=== PATIENT | male | born 1940 | race American Indian/Alaskan Native ===

== ENCOUNTER 2017-04-30 00:28 | Inpatient (IN) | payer MEDICARE ==
[2017-04-30] MEDS ORDERED: VANCOMYCIN VIAL IV ONE (00:55)
[2017-04-30] MEDS ORDERED: ZOFRAN IV ONE (01:04)
[2017-04-30] MEDS ORDERED: NACL 0.9% 1000 ML 1,000 ML ONE ×3 (01:10→02:13)
[2017-04-30 01:50] LABS: Basophils % (Auto) 0.1 % (0.0-1.8); Hematocrit 39.5 % (35.5-45.6); Hemoglobin 12.6 gm/dl (11.8-15.2); Lymphocytes # (Auto) 2.7 K/mm3 (1.2-5.4); Lymphocytes % (Auto) 46.1 % (13.4-35.0); Mean Corpuscular HGB Conc 32 % (32-34); Mean Corpuscular Hemoglobin 30 pg (28-32); Mean Corpuscular Volume 95 fl (84-94); Monocytes # (Auto) 0.7 K/mm3 (0.0-0.8); Monocytes % (Auto) 11.4 % (0.0-7.3); Platelet Count 161 K/mm3 (140-440); Red Blood Count 4.14 M/mm3 (3.65-5.03); Red Cell Distribution Width 16.6 % (13.2-15.2)
[2017-04-30] MEDS ORDERED: TYLENOL PR ONE ×2 (01:57)
[2017-04-30] MEDS ORDERED: VANCOMYCIN/NS 1 GM/250 ML 1 GM/250 ML BAG IV ONE (02:00)
--- NOTE | 2017-04-30 02:02 | Emergency Department Report ---
<LOUIE ROWLEY - Last Filed: 04/30/17 05:08> ED Fever HPI - General Chief Complaint: Fever Stated Complaint: POSS SEPTIC Time Seen by Provider: 04/30/17 00:55 ED Review of Systems ROS: Stated complaint: POSS SEPTIC Other details as noted in HPI ED Past Medical Hx - Medications Home Medications: Home Medications Medication Instructions Recorded Confirmed Last Taken Type Albuterol Sulfate [Ventolin HFA] 2 puff IH Q4H PRN 02/25/15 08/09/15 08/08/15 History Aspirin [Aspirin TAB] 325 mg PO QDAY 02/25/15 08/06/15 08/02/15 History Famotidine [Pepcid] 20 mg PO BID 02/25/15 08/09/15 08/08/15 History Furosemide [Lasix TAB] 20 mg PO QDAY 02/25/15 08/09/15 08/08/15 History Gabapentin [Neurontin] 100 mg PO Q8HR 02/25/15 08/09/15 08/08/15 History Glimepiride [Amaryl] 1 mg PO QAM 02/25/15 08/09/15 08/08/15 History Metformin HCl [Fortamet ER] 1,000 mg PO BID 02/25/15 08/09/15 08/08/15 History Simvastatin [Zocor TAB] 40 mg PO QHS 02/25/15 08/09/15 08/08/15 History Oxybutynin Chloride [Ditropan Xl] 10 mg PO QDAY 08/06/15 08/09/15 08/08/15 History Phenazopyridine [Pyridium] 200 mg PO TID 08/06/15 08/09/15 08/08/15 History Sulfamethoxazole/Trimethoprim 1 each PO BID 08/06/15 08/09/15 08/08/15 History [Bactrim DS TAB] Tamsulosin [Flomax] 0.4 mg PO QDAY 08/06/15 08/09/15 08/08/15 History traMADol [Ultram] 50 mg PO Q8HR PRN 08/06/15 08/09/15 08/08/15 History ED Course Vital Signs 04/30/17 04/30/17 04/30/17 00:48 01:00 01:10 Temperature Pulse Rate 140 H 145 H 149 H Respiratory 35 H 26 H Rate Blood Pressure 89/68 O2 Sat by Pulse 90 Oximetry 04/30/17 04/30/17 04/30/17 01:13 01:16 01:22 Temperature 103.6 F H Pulse Rate 150 H 138 H Respiratory 28 H 22 28 H Rate Blood Pressure 89/47 80/57 O2 Sat by Pulse 77 L 99 97 Oximetry 04/30/17 04/30/17 04/30/17 01:30 02:48 03:24 Temperature Pulse Rate 144 H 129 H 135 H Respiratory 23 19 17 Rate Blood Pressure 87/47 67/44 77/52 O2 Sat by Pulse 95 99 Oximetry - Central Line Placement Left IJ Consent Obtained: emergent situation Time Out Performed: Yes Patient Placed on Monitor/Pulse Ox: Yes Prep: mask, gown, gloves Central Line Prep: Chlorhexidine scrub, sterile drapes applied Local Anesthesia Used: Lidocaine 1% Amount of Anesthesia Used (mls): 5 Ultrasound Used for Placement: Yes Central Line Lumen Inserted: triple Bloods Obtained for Lab: No Central Line Position: good blood return, all ports aspirated, flus, sutured in place with 2-0 Dressing Applied: Tegaderm Post Procedure X-Ray: tip of catheter in good p Patient Tolerated Procedure: well, no complications Complications: none ED Medical Decision Making - Lab Data Result diagrams: 04/30/17 01:16 04/30/17 01:16 Critical care attestation.: If time is entered above; I have spent that time in minutes in the direct care of this critically ill patient, excluding procedure time. ED Disposition Clinical Impression: Wide-complex tachycardia, NSTEMI (non-ST elevated myocardial infarction), Dehydration with hypernatremia, Hypernatremia, Hyperglycemia Sepsis Qualifiers: Sepsis type: sepsis due to unspecified organism Qualified Code(s): A41.9 - Sepsis, unspecified organism CHF (congestive heart failure) Qualifiers: Congestive heart failure type: unspecified congestive heart failure type Congestive heart failure chronicity: acute Qualified Code(s): I50.9 - Heart failure, unspecified Fever Qualifiers: Fever type: unspecified Qualified Code(s): R50.9 - Fever, unspecified Disposition: -09 OP ADMIT IP TO THIS HOSP Condition: Stable Referrals: PRIMARY CARE,MD [Referring] - 3-5 Days <JORJE ONOFRE - Last Filed: 04/30/17 08:40> ED Fever HPI - General Source: EMS, RN notes reviewed (FROM [facility]), [facility] - History of Present Illness Timing/Duration: this evening Fever Severity/Quality: greater than 102 F Fever Therapy [employer]ICER: none Associated Symptoms: shortness of breath, weakness ED Review of Systems Comment: Unobtainable due to pts medical conditions Constitutional: denies: fever Neurological: weakness, other (unresponsiveness per penitentiary) Hematological/Lymphatic: easy bleeding ED Past Medical Hx - Past Medical History Previous Medical History?: Yes Hx Hypertension: Yes Hx CVA: Yes Hx Heart Attack/AMI: No Hx Diabetes: Yes Hx GERD: Yes Hx Renal Disease: (neurogenic bladder) Hx Sickle Cell Disease: No Hx Arthritis: Yes Hx Seizures: Yes (x 1, not on meds) Hx Asthma: No Hx HIV: No Additional medical history: a. fib,aspiration pneumonia,renal insufficiency,uti, metabolic acidosis,depression,anorexia - Surgical History Past Surgical History?: No Hx Internal Defibrillator: No (a. fib) Additional Surgical History: soha - Social History Smoking Status: Never Smoker Substance Use Type: None ED Physical Exam - General Limitations: Language Barrier (aphasic), Altered Mental Status, Physical Limitation General appearance: lethargic, in distress, other (APPEARS ,BARELY MOVING,) - Head Head exam: Present: atraumatic, normocephalic - Eye Eye exam: Present: EOMI - ENT ENT exam: Present: mucous membranes dry, other (dry cracked lips) - Neck Neck exam: Present: full ROM - Respiratory Respiratory exam: Present: respiratory distress, rales ( bilateral) - Cardiovascular Cardiovascular Exam: Present: tachycardia, irregular rhythm - GI/Abdominal GI/Abdominal exam: Present: soft, other (thin) - Rectal Rectal exam: Present: normal inspection - exam: Present: normal inspection External exam: Present: normal external exam - Extremities Exam Extremities exam: Present: normal inspection, full ROM - Back Exam Back exam: Present: normal inspection, full ROM ED Course - Reevaluation(s) Reevaluation #1: 04/30/17 08:34 CARDIEZEM DRIP AND DOING WELL. HIS HEAR RATE HAD NORMALIZED BUT HE IS STILL GETTING HYPOTENSIVE AT TIMES. THE HOSPITALIST WILL BE PAGED FOR MANAGEMENT OF HIS HYPOTENSION ED Medical Decision Making - Lab Data Result diagrams: 04/30/17 01:16 04/30/17 01:16 - EKG Data -: EKG Interpreted by Me EKG shows normal: sinus rhythm, axis Rate: tachycardia (WIDE COMPLEX TACHYCARDIA) - Radiology Data Radiology results: report reviewed (CXR;MINIMUM CHRONIC PULMONARY VACSULAR CONGESTION) Critical Care Time: Yes Critical care time in (mins) excluding proc time.: 120 Critical care attestation.: If time is entered above; I have spent that time in minutes in the direct care of this critically ill patient, excluding procedure time. [place] Critical Care Time: 120 MIN ED Disposition Is pt being admited?: Yes Does the pt Need Aspirin: No Time of Disposition: 07:00 (DR PARSONS PAGEAlexi AND CASE REVIEWED AND SHE WILL ADMIT THE PT TO THE HOSPITAL)
[2017-04-30 02:07] LABS: Partial Thromboplastin Time 27.8 Sec. (24.2-36.6)
[2017-04-30] MEDS ORDERED: CARDIZEM ONE (02:10)
[2017-04-30 02:11] LABS: Albumin 3.6 g/dL (3.9-5); Calcium 8.6 mg/dL (8.4-10.2)
[2017-04-30 02:12] LABS: Creatine Kinase MB 1.6 ng/mL (0.0-4.0)
[2017-04-30] MEDS ORDERED: NACL 0.9% 1000 ML 1,000 ML IV ONE ×2 (02:18→03:25)
[2017-04-30] MEDS ORDERED: NACL 0.9% IV ONE (02:18)
[2017-04-30 02:40] LABS: Chol/HDL Ratio 4.57 %
[2017-04-30] MEDS ORDERED: CARDIZEM/D5W 100MG/100ML 100 MG/100 ML BAG IV SCH (03:00)
--- NOTE | 2017-04-30 03:07 | XRay Report ---
FINAL REPORT EXAM: XR CHEST 1V AP HISTORY: Shortness of breath. TECHNIQUE: A single frontal portable radiograph of the chest was obtained. Comparison is made with prior exam 02/28/2015. FINDINGS: The cardiac silhouette and mediastinum are within normal limits. There is minimal central pulmonary vascular congestion, stable in appearance. There is no focal infiltrate or effusion. There is no pneumothorax. There are mild spondylotic changes seen in the spine. Mild degenerative changes are also seen at both glenohumeral joints. IMPRESSION: Minimal chronic pulmonary vascular congestion, stable in appearance. No focal infiltrate or effusion.
[2017-04-30] MEDS ORDERED: ZOSYN/NS 4.5GM/100ML 4.5 GM/100 ML VIAL IV SCH ×2 (04:00→06:00)
[2017-04-30] MEDS: VITAMIN B-1 200 MG in NACL 0.9% 50 ML IV SCH ×2 (04:20→19:02)
[2017-04-30] MEDS: ASCORBIC ACID 1,500 MG in NACL 0.9% 50 ML IV SCH ×4 (05:15→20:44)
[2017-04-30] MEDS: ZOSYN/NS 2.25 GM/50ML 2.25 GM/50 ML BAG IV SCH ×3 (05:35→21:36)
[2017-04-30] MEDS ORDERED: ASCORBIC ACID 1,500 MG in NACL 0.9% 50 ML IV SCH (06:00)
[2017-04-30] MEDS ORDERED: ZOFRAN IV PRN (06:08)
[2017-04-30] MEDS ORDERED: TYLENOL PO PRN (06:08)
--- NOTE | 2017-04-30 06:43 | History and Physical Report ---
History of Present Illness Date of examination: 04/30/17 Date of admission: 04/30/17 06:09 History of present illness: 77-year-old man with a history of diabetes, hyperlipidemia was [facility] for [facility] and fever. The patient is unable to give a history , is lethargic but arousable. Patient was started on IV antibiotics, Levophed drip and placed on BiPAP. Review of systems is unobtainable PAST MEDICAL HISTORY:diabetes, hyperlipidemia PAST SURGICAL HISTORY: Unknown FAMILY HISTORY: Unknown SOCIAL HISTORY: Unknown alcohol, tobacco, drugs, [facility] resident Medications and Allergies Allergies Allergy/AdvReac Type Severity Reaction Status Date / Time No Known Allergies Allergy Verified 04/30/17 01:13 Home Medications Medication Instructions Recorded Confirmed Last Taken Type Albuterol Sulfate [Ventolin HFA] 2 puff IH Q4H PRN 02/25/15 08/09/15 08/08/15 History Aspirin [Aspirin TAB] 325 mg PO QDAY 02/25/15 08/06/15 08/02/15 History Famotidine [Pepcid] 20 mg PO BID 02/25/15 08/09/15 08/08/15 History Furosemide [Lasix TAB] 20 mg PO QDAY 02/25/15 08/09/15 08/08/15 History Gabapentin [Neurontin] 100 mg PO Q8HR 02/25/15 08/09/15 08/08/15 History Glimepiride [Amaryl] 1 mg PO QAM 02/25/15 08/09/15 08/08/15 History Metformin HCl [Fortamet ER] 1,000 mg PO BID 02/25/15 08/09/15 08/08/15 History Simvastatin [Zocor TAB] 40 mg PO QHS 02/25/15 08/09/15 08/08/15 History Oxybutynin Chloride [Ditropan Xl] 10 mg PO QDAY 08/06/15 08/09/15 08/08/15 History Phenazopyridine [Pyridium] 200 mg PO TID 08/06/15 08/09/15 08/08/15 History Sulfamethoxazole/Trimethoprim 1 each PO BID 08/06/15 08/09/15 08/08/15 History [Bactrim DS TAB] Tamsulosin [Flomax] 0.4 mg PO QDAY 08/06/15 08/09/15 08/08/15 History traMADol [Ultram] 50 mg PO Q8HR PRN 08/06/15 08/09/15 08/08/15 History Active Meds: Active Medications Acetaminophen (Tylenol) 650 mg PO Q4H PRN PRN Reason: Pain MILD(1-3)/Fever >100.5/[place] Hydrocortisone Sodium Succinate (Solu-Cortef) 50 mg IV Q6H [facility] Thiamine HCl 200 mg/ Sodium (Chloride) 52 mls @ 100 mls/hr IV Q12H [facility] Last Admin: 04/30/17 04:20 Dose: 100 mls/hr Ascorbic Acid 1,500 mg/ Sodium (Chloride) 53 mls @ 50 mls/30 min IV Q6H [facility] Last Admin: 04/30/17 05:15 Dose: 50 mls/30 min Piperacillin Sod/Tazobactam Sod (Zosyn/Ns 2.25 Gm/50ml) 2.25 gm in 50 mls @ 100 mls/hr IV Q8H [facility] Last Admin: 04/30/17 05:35 Dose: 100 mls/hr Dextrose/Sodium Chloride (D5/0.45ns) 1,000 mls @ 125 mls/hr IV DIRECT [facility] Ondansetron HCl (Zofran) 4 mg IV Q8H PRN PRN Reason: N/V unrelieved by Gloria Vancomycin HCl (Vancomycin Pharmacy To Dose) 1 each IV PKCONSULT [facility] PRN Reason: Protocol Exam - Physical Exam Narrative exam: Gen. appearance: Patient lying in bed in no acute distress HEENT: Normocephalic/atraumatic, pupils equal round reactive to light, unable to do extra occular movement , no scleral icterus, no JVD or thyromegaly or nodule, neck is supple, mucous membrane dry, unable to examine oral cavity Heart: S1-S2, regular rate and rhythm Lungs: Decreased breath sounds bilateral breathing comfortable Abdomen: Positive bowel sounds, nontender, nondistended, no organomegaly Extremities: No edema, cyanosis, clubbing Neuro:: Lethargic but arousable Skin: No rash, nodules, warm dry - Constitutional Vitals: Temp Pulse Resp BP Pulse Ox 103.6 F H 95 H 14 92/48 94 04/30/17 01:13 04/30/17 05:45 01/01/18 05:45 04/30/17 05:45 04/30/17 05:45 Results - Labs CBC & Chem 7: 04/30/17 01:16 04/30/17 01:16 Labs: Abnormal lab results 04/30/17 04/30/17 04/30/17 Range/Units 01:16 01:16 01:16 MCV 95 H (84-94) fl RDW 16.6 H (13.2-15.2) % Lymph % (Auto) 46.1 H (13.4-35.0) % [place] % (Auto) 11.4 H (0.0-7.3) % D-Dimer 1356.09 H (0-234) ng/mlDDU POC ABG pH (7.35-7.45) Sodium 152 H (137-145) mmol/L Chloride 107.4 H (98-107) mmol/L BUN 98 H (9-20) mg/dL Creatinine 3.6 H (0.8-1.5) mg/dL Glucose 224 H (75-100) mg/dL Lactic Acid (0.7-2.0) mmol/L AST 55 H (5-40) units/L Total Creatine Kinase 759 H (55-170) units/L Troponin T 0.468 H* (0.00-0.029) ng/mL NT-Pro-B Natriuret Pep (0-900) pg/mL Albumin 3.6 L (3.9-5) g/dL Triglycerides 260 H (2-149) mg/dL LDL Cholesterol Direct 41 L (50-130) mg/dL HDL Cholesterol 26 L (40-59) mg/dL 04/30/17 04/30/17 04/30/17 Range/Units 01:16 01:16 01:16 MCV (84-94) fl RDW (13.2-15.2) % Lymph % (Auto) (13.4-35.0) % [place] % (Auto) (0.0-7.3) % D-Dimer (0-234) ng/mlDDU POC ABG pH (7.35-7.45) Sodium (137-145) mmol/L Chloride (98-107) mmol/L BUN (9-20) mg/dL Creatinine (0.8-1.5) mg/dL Glucose (75-100) mg/dL Lactic Acid 2.90 H* (0.7-2.0) mmol/L AST (5-40) units/L Total Creatine Kinase 784 H (55-170) units/L Troponin T (0.00-0.029) ng/mL NT-Pro-B Natriuret Pep 23142 H (0-900) pg/mL Albumin (3.9-5) g/dL Triglycerides (2-149) mg/dL LDL Cholesterol Direct (50-130) mg/dL HDL Cholesterol (40-59) mg/dL 04/30/17 Range/Units 03:27 MCV (84-94) fl RDW (13.2-15.2) % Lymph % (Auto) (13.4-35.0) % [place] % (Auto) (0.0-7.3) % D-Dimer (0-234) ng/mlDDU POC ABG pH 7.303 L (7.35-7.45) Sodium (137-145) mmol/L Chloride (98-107) mmol/L BUN (9-20) mg/dL Creatinine (0.8-1.5) mg/dL Glucose (75-100) mg/dL Lactic Acid (0.7-2.0) mmol/L AST (5-40) units/L Total Creatine Kinase (55-170) units/L Troponin T (0.00-0.029) ng/mL NT-Pro-B Natriuret Pep (0-900) pg/mL Albumin (3.9-5) g/dL Triglycerides (2-149) mg/dL LDL Cholesterol Direct (50-130) mg/dL HDL Cholesterol (40-59) mg/dL Assessment and Plan Assessment Acute respiratory failure Septic shock Acute renal failure Hypernatremia Abnormal d-dimer Abnormal cardiac enzymes Hyperlipidemia Plan Admit to medicine Start IV fluid, continue levophed drip, continue BiPAP, do ABG Monitor kidney function, check ultrasound of the kidneys, sodium levels Start IV Zosyn, vancomycin, consult critical care Check cardiac enzymes, echo, v/q DVT prophylaxis
[2017-04-30] MEDS ORDERED: D5/0.45NS 1,000 ML IV SCH (07:00)
[2017-04-30] MEDS ORDERED: VANCOMYCIN VIAL 500 MG in NACL 0.9% 100 ML IV SCH (07:00)
[2017-04-30] MEDS ORDERED: VANCOMYCIN PHARMACY TO DOSE IV SCH (07:00)
--- NOTE | 2017-04-30 08:33 | XRay Report ---
AP CHEST: HISTORY: Central line placement A left IJ venous catheter has been inserted since earlier today at 0104 hrs. The distal tip of the catheter overlies the mid SVC. No pneumothorax is visualized. Mild bibasilar atelectatic changes have developed. Heart and mediastinal structures are within normal limits. IMPRESSION: Central line placement as described. No pneumothorax identified.
[2017-04-30 10:07] LABS: Calcium 7.8 mg/dL (8.4-10.2)
[2017-04-30 10:59] LABS: Creatine Kinase MB 2.3 ng/mL (0.0-4.0)
[2017-04-30 12:37] LABS: Calcium 7.7 mg/dL (8.4-10.2)
[2017-04-30 12:55] LABS: Creatine Kinase MB 2.5 ng/mL (0.0-4.0)
[2017-04-30] MEDS: LOVENOX SUB-Q SCH (13:11)
[2017-04-30] MEDS ORDERED: ZOSYN/NS 2.25 GM/50ML 2.25 GM/50 ML BAG IV SCH (14:00)
--- NOTE | 2017-04-30 14:02 | Consultation ---
History of Present Illness Consult date: 04/30/17 Requesting physician: SHERIE PARSONS Reason for consult: other (Severe Sepsis; Acute Hypoxemic Resp Failure) History of present illness: PULMONARY/CCM CONSULT NOTE (Full dictation # [id number]) Please see dictated notes for full details Medications and Allergies Allergies Allergy/AdvReac Type Severity Reaction Status Date / Time No Known Allergies Allergy Verified 04/30/17 01:13 Home Medications Medication Instructions Recorded Confirmed Last Taken Type Albuterol Sulfate [Ventolin HFA] 2 puff IH Q4H PRN 02/25/15 08/09/15 08/08/15 History Aspirin [Aspirin TAB] 325 mg PO QDAY 02/25/15 08/06/15 08/02/15 History Famotidine [Pepcid] 20 mg PO BID 02/25/15 08/09/15 08/08/15 History Furosemide [Lasix TAB] 20 mg PO QDAY 02/25/15 08/09/15 08/08/15 History Gabapentin [Neurontin] 100 mg PO Q8HR 02/25/15 08/09/15 08/08/15 History Glimepiride [Amaryl] 1 mg PO QAM 02/25/15 08/09/15 08/08/15 History Metformin HCl [Fortamet ER] 1,000 mg PO BID 02/25/15 08/09/15 08/08/15 History Simvastatin [Zocor TAB] 40 mg PO QHS 02/25/15 08/09/15 08/08/15 History Oxybutynin Chloride [Ditropan Xl] 10 mg PO QDAY 08/06/15 08/09/15 08/08/15 History Phenazopyridine [Pyridium] 200 mg PO TID 08/06/15 08/09/15 08/08/15 History Sulfamethoxazole/Trimethoprim 1 each PO BID 08/06/15 08/09/15 08/08/15 History [Bactrim DS TAB] Tamsulosin [Flomax] 0.4 mg PO QDAY 08/06/15 08/09/15 08/08/15 History traMADol [Ultram] 50 mg PO Q8HR PRN 08/06/15 08/09/15 08/08/15 History Active Meds: Active Medications Acetaminophen (Tylenol) 650 mg PO Q4H PRN PRN Reason: Pain MILD(1-3)/Fever >100.5/[place] Enoxaparin Sodium (Lovenox) 30 mg SUB-Q DAILY [facility] Hydrocortisone Sodium Succinate (Solu-Cortef) 50 mg IV Q6H [facility] Thiamine HCl 200 mg/ Sodium (Chloride) 52 mls @ 100 mls/hr IV Q12H [facility] Last Admin: 04/30/17 04:20 Dose: 100 mls/hr Ascorbic Acid 1,500 mg/ Sodium (Chloride) 53 mls @ 50 mls/30 min IV Q6H [facility] Last Admin: 04/30/17 10:22 Dose: 50 mls/30 min Piperacillin Sod/Tazobactam Sod (Zosyn/Ns 2.25 Gm/50ml) 2.25 gm in 50 mls @ 100 mls/hr IV Q8H [facility] Last Admin: 04/30/17 05:35 Dose: 100 mls/hr Dextrose/Sodium Chloride (D5/0.45ns) 1,000 mls @ 125 mls/hr IV [facility] Ondansetron HCl (Zofran) 4 mg IV Q8H PRN PRN Reason: N/V unrelieved by Gloria Vancomycin HCl (Vancomycin Pharmacy To Dose) 1 each IV PKCONSULT [facility] PRN Reason: Protocol Physical Examination Vital signs: Vital Signs Pulse Resp Pulse Ox 140 H 35 H 90 04/30/17 00:48 04/30/17 00:48 04/30/17 00:48 Results - Laboratory Findings CBC and BMP: 04/30/17 01:16 04/30/17 12:11 ABG POC ABG pH 7.283 (7.35-7.45) L 04/30/17 05:56 POC ABG pCO2 42.1 (35-45) 04/30/17 05:56 POC ABG pO2 68 (80-105) L 04/30/17 05:56 POC ABG HCO3 19.9 04/30/17 05:56 POC ABG Total CO2 21 04/30/17 05:56 POC ABG O2 Sat 91 04/30/17 05:56 PT/INR, D-dimer D-Dimer 1356.09 ng/mlDDU (0-234) H 04/30/17 01:16 Abnormal lab findings: Abnormal Labs 04/30/17 04/30/17 04/30/17 01:16 01:16 01:16 MCV 95 H RDW 16.6 H Lymph % (Auto) 46.1 H [place] % (Auto) 11.4 H D-Dimer 1356.09 H POC ABG pH POC ABG pO2 Sodium 152 H Chloride 107.4 H BUN 98 H Creatinine 3.6 H Glucose 224 H Lactic Acid Calcium AST 55 H Total Creatine Kinase 759 H Troponin T 0.468 H* NT-Pro-B Natriuret Pep Albumin 3.6 L Triglycerides 260 H LDL Cholesterol Direct 41 L HDL Cholesterol 26 L 04/30/17 04/30/17 04/30/17 01:16 01:16 01:16 MCV RDW Lymph % (Auto) [place] % (Auto) D-Dimer POC ABG pH POC ABG pO2 Sodium Chloride BUN Creatinine Glucose Lactic Acid 2.90 H* Calcium AST Total Creatine Kinase 784 H Troponin T NT-Pro-B Natriuret Pep 62501 H Albumin Triglycerides LDL Cholesterol Direct HDL Cholesterol 04/30/17 04/30/17 04/30/17 03:27 05:56 09:43 MCV RDW Lymph % (Auto) [place] % (Auto) D-Dimer POC ABG pH 7.303 L 7.283 L POC ABG pO2 68 L Sodium Chloride BUN Creatinine Glucose Lactic Acid Calcium AST Total Creatine Kinase 682 H Troponin T 0.331 H* D NT-Pro-B Natriuret Pep Albumin Triglycerides LDL Cholesterol Direct HDL Cholesterol 04/30/17 04/30/17 04/30/17 09:43 12:11 12:11 MCV RDW Lymph % (Auto) [place] % (Auto) D-Dimer POC ABG pH POC ABG pO2 Sodium 152 H 155 H Chloride 112.1 H 114.3 H BUN 100 H 101 H Creatinine 3.3 H 3.4 H Glucose 267 H 262 H Lactic Acid Calcium 7.8 L 7.7 L AST Total Creatine Kinase 693 H Troponin T 0.299 H* NT-Pro-B Natriuret Pep Albumin Triglycerides LDL Cholesterol Direct HDL Cholesterol
[2017-04-30] MEDS ORDERED: D50W (25GM) Syringe IV PRN (15:22)
--- NOTE | 2017-04-30 15:39 | Progress Note ---
Assessment and Plan Assessment and plan: 77-year-old man with a history of diabetes, hyperlipidemia was sent from the [place] [facility] for hypotension and fever. The patient is unable to give a history , is lethargic but arousable Acute respiratory failure with hypoxia continue BIPAP, pulmonary input appreciated Septic shock/Septic shock continue levophed, continue abx, obtain UA, UC Acute renal failure/ATN nephrology consult continue IVF, obtain UA, UC and renal US Hypernatremia -continue hypotonic fluid Abnormal d-dimer obtain dopplers, likely elevated due to septic shock Abnormal cardiac enzymes -demand ischaemia, due to Type 2 [place] The high probability of a clinically significant, sudden or life threatening deterioration of the [cv, pumonary, renal] system(s) required my full and direct attention, intervention and personal management. The aggregate critical care time was [44] minutes. This time is in addition to time spent performing reported procedures but includes the following: [] Data Review and interpretation [] Patient assessment and monitoring of vital signs [] Documentation [] Medication orders and management History Interval history: continues to be bipap dependent Hospitalist Physical - Constitutional Vitals: Temp Pulse Resp BP Pulse Ox 98.3 F 81 14 130/67 100 04/30/17 12:00 04/30/17 14:30 04/30/17 14:30 04/30/17 14:30 04/30/17 14:30 General appearance: Present: no acute distress - EENT Eyes: Present: PERRL ENT: hearing intact - Neck Neck: Present: supple - Respiratory Respiratory effort: labored Respiratory: bilateral: diminished - Cardiovascular Rhythm: regular Heart Sounds: Present: S1 & S2 - Extremities Extremities: no ischemia Peripheral Pulses: within normal limits - Abdominal General gastrointestinal: soft, non-tender - Integumentary Integumentary: Present: clear, warm - Psychiatric Psychiatric: appropriate mood/affect - Neurologic Neurologic: CNII-XII intact Results - Labs CBC & Chem 7: 04/30/17 01:16 04/30/17 12:11 Labs: Laboratory Last Values WBC 5.8 K/mm3 (4.5-11.0) 04/30/17 01:16 RBC 4.14 M/mm3 (3.65-5.03) 04/30/17 01:16 Hgb 12.6 gm/dl (11.8-15.2) 04/30/17 01:16 Hct 39.5 % (35.5-45.6) 04/30/17 01:16 MCV 95 fl (84-94) H 04/30/17 01:16 MCH 30 pg (28-32) 04/30/17 01:16 MCHC 32 % (32-34) 04/30/17 01:16 RDW 16.6 % (13.2-15.2) H 04/30/17 01:16 Plt Count 161 K/mm3 (140-440) 04/30/17 01:16 Lymph % (Auto) 46.1 % (13.4-35.0) H 04/30/17 01:16 [place] % (Auto) 11.4 % (0.0-7.3) H 04/30/17 01:16 Eos % (Auto) 0.0 % (0.0-4.3) 04/30/17 01:16 Baso % (Auto) 0.1 % (0.0-1.8) 04/30/17 01:16 Lymph # 2.7 K/mm3 (1.2-5.4) 04/30/17 01:16 [place] # 0.7 K/mm3 (0.0-0.8) 04/30/17 01:16 Eos # 0.0 K/mm3 (0.0-0.4) 04/30/17 01:16 Baso # 0.0 K/mm3 (0.0-0.1) 04/30/17 01:16 Seg Neutrophils % 42.4 % (40.0-70.0) 04/30/17 01:16 Seg Neutrophils # 2.5 K/mm3 (1.8-7.7) 04/30/17 01:16 APTT 27.8 Sec. (24.2-36.6) 04/30/17 01:16 D-Dimer 1356.09 ng/mlDDU (0-234) H 04/30/17 01:16 POC ABG pH 7.283 (7.35-7.45) L 04/30/17 05:56 POC ABG pCO2 42.1 (35-45) 04/30/17 05:56 POC ABG pO2 68 (80-105) L 04/30/17 05:56 POC ABG HCO3 19.9 04/30/17 05:56 POC ABG Total CO2 21 04/30/17 05:56 POC ABG O2 Sat 91 04/30/17 05:56 POC ABG Base Excess -7 04/30/17 05:56 FiO2 50 % 04/30/17 05:56 Sodium 155 mmol/L (137-145) H 04/30/17 12:11 Potassium 4.5 mmol/L (3.6-5.0) 04/30/17 12:11 Chloride 114.3 mmol/L (98-107) H 04/30/17 12:11 Carbon Dioxide 22 mmol/L (22-30) 04/30/17 12:11 Anion Gap 23 mmol/L 04/30/17 12:11 BUN 101 mg/dL (9-20) H 04/30/17 12:11 Creatinine 3.4 mg/dL (0.8-1.5) H 04/30/17 12:11 Estimated GFR 21 ml/min 04/30/17 12:11 BUN/Creatinine Ratio 30 % 04/30/17 12:11 Glucose 262 mg/dL (75-100) H 04/30/17 12:11 Lactic Acid 2.90 mmol/L (0.7-2.0) H* 04/30/17 01:16 Calcium 7.7 mg/dL (8.4-10.2) L 04/30/17 12:11 Total Bilirubin 0.30 mg/dL (0.1-1.2) 04/30/17 01:16 AST 55 units/L (5-40) H 04/30/17 01:16 ALT 28 units/L (7-56) 04/30/17 01:16 Alkaline Phosphatase 86 units/L (35-129) 04/30/17 01:16 Total Creatine Kinase 693 units/L (55-170) H 04/30/17 12:11 CK-MB (CK-2) 2.5 ng/mL (0.0-4.0) 04/30/17 12:11 CK-MB (CK-2) Rel Index 0.3 (0-4) 04/30/17 12:11 Troponin T 0.299 ng/mL (0.00-0.029) H* 04/30/17 12:11 NT-Pro-B Natriuret Pep 81181 pg/mL (0-900) H 04/30/17 01:16 Total Protein 7.5 g/dL (6.3-8.2) 04/30/17 01:16 Albumin 3.6 g/dL (3.9-5) L 04/30/17 01:16 Albumin/Globulin Ratio 0.9 % 04/30/17 01:16 Triglycerides 260 mg/dL (2-149) H 04/30/17 01:16 Cholesterol 119 mg/dL (50-199) 04/30/17 01:16 LDL Cholesterol Direct 41 mg/dL (50-130) L 04/30/17 01:16 HDL Cholesterol 26 mg/dL (40-59) L 04/30/17 01:16 Cholesterol/HDL Ratio 4.57 % 04/30/17 01:16 Blood Type O POSITIVE 04/30/17:18 Antibody Screen Negative 04/30/17:18
[2017-04-30] MEDS ORDERED: NACL 0.45% 1000 ML 1,000 ML IV SCH (16:00)
--- NOTE | 2017-04-30 16:32 | Consultation ---
History of Present Illness Consult date: 04/30/17 Consult reason: abnormal cardiac enzymes, atrial fibrillation, elevated troponin Medications and Allergies Allergies Allergy/AdvReac Type Severity Reaction Status Date / Time No Known Allergies Allergy Verified 04/30/17 01:13 Home Medications Medication Instructions Recorded Confirmed Last Taken Type Albuterol Sulfate [Ventolin HFA] 2 puff IH Q4H PRN 02/25/15 04/30/17 1 Day Ago History ~04/29/17 2 puffs Q4H prn Famotidine [Pepcid] 20 mg PO BID 02/25/15 04/30/17 1 Day Ago History ~04/29/17 Furosemide [Lasix TAB] 20 mg PO QDAY 02/25/15 04/30/17 1 Day Ago History ~04/29/17 Gabapentin [Neurontin] 100 mg PO Q8HR 02/25/15 04/30/17 1 Day Ago History ~04/29/17 Glimepiride [Amaryl] 1 mg PO QAM 02/25/15 04/30/17 1 Day Ago History ~04/29/17 1 mg Metformin HCl [Fortamet ER] 1,000 mg PO BID 02/25/15 04/30/17 1 Day Ago History ~04/29/17 1000 mg Simvastatin [Zocor TAB] 40 mg PO QHS 02/25/15 04/30/17 1 Day Ago History ~04/29/17 40 mg Oxybutynin Chloride [Ditropan Xl] 10 mg PO QDAY 08/06/15 04/30/17 1 Day Ago History ~04/29/17 10 mg Phenazopyridine [Pyridium] 200 mg PO TID 08/06/15 04/30/17 1 Day Ago History ~04/29/17 200 Sulfamethoxazole/Trimethoprim 1 each PO BID 08/06/15 04/30/17 1 Day Ago History [Bactrim DS TAB] ~04/29/17 Tamsulosin [Flomax] 0.4 mg PO QDAY 08/06/15 04/30/17 1 Day Ago History ~04/29/17 0.04 traMADol [Ultram] 50 mg PO Q8HR PRN 08/06/15 04/30/17 1 Day Ago History ~04/29/17 50mg Active Meds: Active Medications Acetaminophen (Tylenol) 650 mg PO Q4H PRN PRN Reason: Pain MILD(1-3)/Fever >100.5/IRWIN Albuterol/Ipratropium (Duoneb *Not For Prn Use*) 1 ampul IH Q6HRT [facility] Dextrose (D50w (25gm) Syringe) 50 ml IV PRN PRN PRN Reason: Hypoglycemia Enoxaparin Sodium (Lovenox) 30 mg SUB-Q DAILY [facility] Last Admin: 04/30/17 13:11 Dose: 30 mg Thiamine HCl 200 mg/ Sodium (Chloride) 52 mls @ 100 mls/hr IV Q12H [facility] Last Admin: 04/30/17 04:20 Dose: 100 mls/hr Ascorbic Acid 1,500 mg/ Sodium (Chloride) 53 mls @ 50 mls/30 min IV Q6H [facility] Last Admin: 04/30/17 15:45 Dose: 50 mls/30 min Piperacillin Sod/Tazobactam Sod (Zosyn/Ns 2.25 Gm/50ml) 2.25 gm in 50 mls @ 100 mls/hr IV Q8H [facility] Last Admin: 04/30/17 15:46 Dose: 100 mls/hr Sodium Chloride (Nacl 0.45% 1000 Ml) 1,000 mls @ 150 mls/hr IV DIRECT [facility] Insulin Aspart (Novolog) 0 units SUB-Q Q6HR [facility] PRN Reason: Protocol Methylprednisolone Sodium Succinate (Solu-Medrol) 125 mg IM Q6H [facility] Ondansetron HCl (Zofran) 4 mg IV Q8H PRN PRN Reason: N/V unrelieved by Reglan Pantoprazole Sodium (Protonix) 40 mg IV QDAY [facility] Tamsulosin HCl (Flomax) 0.4 mg PO QDAY [facility] Vancomycin HCl (Vancomycin Pharmacy To Dose) 1 each IV PKCONSULT [facility] PRN Reason: Protocol Physical Examination Vital Signs Pulse Resp Pulse Ox 140 H 35 H 90 04/30/17 00:48 04/30/17 00:48 04/30/17 00:48 Results 04/30/17 01:16 04/30/17 12:11 Cardiac Enzymes 04/30/17 04/30/17 04/30/17 Range/Units 01:16 01:16 01:16 WBC 5.8 (4.5-11.0) K/mm3 RBC 4.14 (3.65-5.03) M/mm3 Hgb 12.6 (11.8-15.2) gm/dl Hct 39.5 (35.5-45.6) % MCV 95 H (84-94) fl MCH 30 (28-32) pg MCHC 32 (32-34) % RDW 16.6 H (13.2-15.2) % Plt Count 161 (140-440) K/mm3 Lymph % (Auto) 46.1 H (13.4-35.0) % Mckean % (Auto) 11.4 H (0.0-7.3) % Eos % (Auto) 0.0 (0.0-4.3) % Baso % (Auto) 0.1 (0.0-1.8) % Lymph # 2.7 (1.2-5.4) K/mm3 Mckean # 0.7 (0.0-0.8) K/mm3 Eos # 0.0 (0.0-0.4) K/mm3 Baso # 0.0 (0.0-0.1) K/mm3 Seg Neutrophils % 42.4 (40.0-70.0) % Seg Neutrophils # 2.5 (1.8-7.7) K/mm3 APTT 27.8 (24.2-36.6) Sec. D-Dimer 1356.09 H (0-234) ng/mlDDU POC ABG pH (7.35-7.45) POC ABG pCO2 (35-45) POC ABG pO2 (80-105) POC ABG HCO3 POC ABG Total CO2 POC ABG O2 Sat POC ABG Base Excess FiO2 % Sodium 152 H (137-145) mmol/L Potassium 4.2 (3.6-5.0) mmol/L Chloride 107.4 H (98-107) mmol/L Carbon Dioxide 23 (22-30) mmol/L Anion Gap 26 mmol/L BUN 98 H (9-20) mg/dL Creatinine 3.6 H (0.8-1.5) mg/dL Estimated GFR 20 ml/min BUN/Creatinine Ratio 27 % Glucose 224 H (75-100) mg/dL Lactic Acid (0.7-2.0) mmol/L Calcium 8.6 (8.4-10.2) mg/dL Total Bilirubin 0.30 (0.1-1.2) mg/dL AST 55 H (5-40) units/L ALT 28 (7-56) units/L Alkaline Phosphatase 86 (35-129) units/L Total Creatine Kinase 759 H (55-170) units/L CK-MB (CK-2) (0.0-4.0) ng/mL CK-MB (CK-2) Rel Index (0-4) Troponin T 0.468 H* (0.00-0.029) ng/mL NT-Pro-B Natriuret Pep (0-900) pg/mL Total Protein 7.5 (6.3-8.2) g/dL Albumin 3.6 L (3.9-5) g/dL Albumin/Globulin Ratio 0.9 % Triglycerides 260 H (2-149) mg/dL Cholesterol 119 (50-199) mg/dL LDL Cholesterol Direct 41 L (50-130) mg/dL HDL Cholesterol 26 L (40-59) mg/dL Cholesterol/HDL Ratio 4.57 % 04/30/17 04/30/17 04/30/17 Range/Units 01:16 01:16 01:16 WBC (4.5-11.0) K/mm3 RBC (3.65-5.03) M/mm3 Hgb (11.8-15.2) gm/dl Hct (35.5-45.6) % MCV (84-94) fl MCH (28-32) pg MCHC (32-34) % RDW (13.2-15.2) % Plt Count (140-440) K/mm3 Lymph % (Auto) (13.4-35.0) % Mckean % (Auto) (0.0-7.3) % Eos % (Auto) (0.0-4.3) % Baso % (Auto) (0.0-1.8) % Lymph # (1.2-5.4) K/mm3 Mckean # (0.0-0.8) K/mm3 Eos # (0.0-0.4) K/mm3 Baso # (0.0-0.1) K/mm3 Seg Neutrophils % (40.0-70.0) % Seg Neutrophils # (1.8-7.7) K/mm3 APTT (24.2-36.6) Sec. D-Dimer (0-234) ng/mlDDU POC ABG pH (7.35-7.45) POC ABG pCO2 (35-45) POC ABG pO2 (80-105) POC ABG HCO3 POC ABG Total CO2 POC ABG O2 Sat POC ABG Base Excess FiO2 % Sodium (137-145) mmol/L Potassium (3.6-5.0) mmol/L Chloride (98-107) mmol/L Carbon Dioxide (22-30) mmol/L Anion Gap mmol/L BUN (9-20) mg/dL Creatinine (0.8-1.5) mg/dL Estimated GFR ml/min BUN/Creatinine Ratio % Glucose (75-100) mg/dL Lactic Acid 2.90 H* (0.7-2.0) mmol/L Calcium (8.4-10.2) mg/dL Total Bilirubin (0.1-1.2) mg/dL AST (5-40) units/L ALT (7-56) units/L Alkaline Phosphatase (35-129) units/L Total Creatine Kinase 784 H (55-170) units/L CK-MB (CK-2) 1.6 (0.0-4.0) ng/mL CK-MB (CK-2) Rel Index 0.2 (0-4) Troponin T (0.00-0.029) ng/mL NT-Pro-B Natriuret Pep 99889 H (0-900) pg/mL Total Protein (6.3-8.2) g/dL Albumin (3.9-5) g/dL Albumin/Globulin Ratio % Triglycerides (2-149) mg/dL Cholesterol (50-199) mg/dL LDL Cholesterol Direct (50-130) mg/dL HDL Cholesterol (40-59) mg/dL Cholesterol/HDL Ratio % 04/30/17 04/30/17 04/30/17 Range/Units 03:27 05:56 09:43 WBC (4.5-11.0) K/mm3 RBC (3.65-5.03) M/mm3 Hgb (11.8-15.2) gm/dl Hct (35.5-45.6) % MCV (84-94) fl MCH (28-32) pg MCHC (32-34) % RDW (13.2-15.2) % Plt Count (140-440) K/mm3 Lymph % (Auto) (13.4-35.0) % Mckean % (Auto) (0.0-7.3) % Eos % (Auto) (0.0-4.3) % Baso % (Auto) (0.0-1.8) % Lymph # (1.2-5.4) K/mm3 Mckean # (0.0-0.8) K/mm3 Eos # (0.0-0.4) K/mm3 Baso # (0.0-0.1) K/mm3 Seg Neutrophils % (40.0-70.0) % Seg Neutrophils # (1.8-7.7) K/mm3 APTT (24.2-36.6) Sec. D-Dimer (0-234) ng/mlDDU POC ABG pH 7.303 L 7.283 L (7.35-7.45) POC ABG pCO2 42.3 42.1 (35-45) POC ABG pO2 93 68 L (80-105) POC ABG HCO3 20.9 19.9 POC ABG Total CO2 22 21 POC ABG O2 Sat 96 91 POC ABG Base Excess -5 -7 FiO2 50 50 % Sodium (137-145) mmol/L Potassium (3.6-5.0) mmol/L Chloride (98-107) mmol/L Carbon Dioxide (22-30) mmol/L Anion Gap mmol/L BUN (9-20) mg/dL Creatinine (0.8-1.5) mg/dL Estimated GFR ml/min BUN/Creatinine Ratio % Glucose (75-100) mg/dL Lactic Acid (0.7-2.0) mmol/L Calcium (8.4-10.2) mg/dL Total Bilirubin (0.1-1.2) mg/dL AST (5-40) units/L ALT (7-56) units/L Alkaline Phosphatase (35-129) units/L Total Creatine Kinase 682 H (55-170) units/L CK-MB (CK-2) 2.3 (0.0-4.0) ng/mL CK-MB (CK-2) Rel Index 0.3 (0-4) Troponin T 0.331 H* D (0.00-0.029) ng/mL NT-Pro-B Natriuret Pep (0-900) pg/mL Total Protein (6.3-8.2) g/dL Albumin (3.9-5) g/dL Albumin/Globulin Ratio % Triglycerides (2-149) mg/dL Cholesterol (50-199) mg/dL LDL Cholesterol Direct (50-130) mg/dL HDL Cholesterol (40-59) mg/dL Cholesterol/HDL Ratio % 04/30/17 04/30/17 04/30/17 Range/Units 09:43 12:11 12:11 WBC (4.5-11.0) K/mm3 RBC (3.65-5.03) M/mm3 Hgb (11.8-15.2) gm/dl Hct (35.5-45.6) % MCV (84-94) fl MCH (28-32) pg MCHC (32-34) % RDW (13.2-15.2) % Plt Count (140-440) K/mm3 Lymph % (Auto) (13.4-35.0) % Mckean % (Auto) (0.0-7.3) % Eos % (Auto) (0.0-4.3) % Baso % (Auto) (0.0-1.8) % Lymph # (1.2-5.4) K/mm3 Mckean # (0.0-0.8) K/mm3 Eos # (0.0-0.4) K/mm3 Baso # (0.0-0.1) K/mm3 Seg Neutrophils % (40.0-70.0) % Seg Neutrophils # (1.8-7.7) K/mm3 APTT (24.2-36.6) Sec. D-Dimer (0-234) ng/mlDDU POC ABG pH (7.35-7.45) POC ABG pCO2 (35-45) POC ABG pO2 (80-105) POC ABG HCO3 POC ABG Total CO2 POC ABG O2 Sat POC ABG Base Excess FiO2 % Sodium 152 H 155 H (137-145) mmol/L Potassium 4.6 4.5 (3.6-5.0) mmol/L Chloride 112.1 H 114.3 H (98-107) mmol/L Carbon Dioxide 22 22 (22-30) mmol/L Anion Gap 23 23 mmol/L BUN 100 H 101 H (9-20) mg/dL Creatinine 3.3 H 3.4 H (0.8-1.5) mg/dL Estimated GFR 22 21 ml/min BUN/Creatinine Ratio 30 30 % Glucose 267 H 262 H (75-100) mg/dL Lactic Acid (0.7-2.0) mmol/L Calcium 7.8 L 7.7 L (8.4-10.2) mg/dL Total Bilirubin (0.1-1.2) mg/dL AST (5-40) units/L ALT (7-56) units/L Alkaline Phosphatase (35-129) units/L Total Creatine Kinase 693 H (55-170) units/L CK-MB (CK-2) 2.5 (0.0-4.0) ng/mL CK-MB (CK-2) Rel Index 0.3 (0-4) Troponin T 0.299 H* (0.00-0.029) ng/mL NT-Pro-B Natriuret Pep (0-900) pg/mL Total Protein (6.3-8.2) g/dL Albumin (3.9-5) g/dL Albumin/Globulin Ratio % Triglycerides (2-149) mg/dL Cholesterol (50-199) mg/dL LDL Cholesterol Direct (50-130) mg/dL HDL Cholesterol (40-59) mg/dL Cholesterol/HDL Ratio % Coagulation 04/30/17 Range/Units 01:16 APTT 27.8 (24.2-36.6) Sec. Lipids 04/30/17 Range/Units 01:16 Triglycerides 260 H (2-149) mg/dL Cholesterol 119 (50-199) mg/dL HDL Cholesterol 26 L (40-59) mg/dL Cholesterol/HDL Ratio 4.57 % CBC 04/30/17 Range/Units 01:16 WBC 5.8 (4.5-11.0) K/mm3 RBC 4.14 (3.65-5.03) M/mm3 Hgb 12.6 (11.8-15.2) gm/dl Hct 39.5 (35.5-45.6) % Plt Count 161 (140-440) K/mm3 Lymph # 2.7 (1.2-5.4) K/mm3 Mckean # 0.7 (0.0-0.8) K/mm3 Eos # 0.0 (0.0-0.4) K/mm3 Baso # 0.0 (0.0-0.1) K/mm3 Comprehensive Metabolic Panel 04/30/17 04/30/17 04/30/17 Range/Units 01:16 09:43 12:11 Sodium 152 H 152 H 155 H (137-145) mmol/L Potassium 4.2 4.6 4.5 (3.6-5.0) mmol/L Chloride 107.4 H 112.1 H 114.3 H (98-107) mmol/L Carbon Dioxide 23 22 22 (22-30) mmol/L BUN 98 H 100 H 101 H (9-20) mg/dL Creatinine 3.6 H 3.3 H 3.4 H (0.8-1.5) mg/dL Glucose 224 H 267 H 262 H (75-100) mg/dL Calcium 8.6 7.8 L 7.7 L (8.4-10.2) mg/dL AST 55 H (5-40) units/L ALT 28 (7-56) units/L Alkaline Phosphatase 86 (35-129) units/L Total Protein 7.5 (6.3-8.2) g/dL Albumin 3.6 L (3.9-5) g/dL Assessment and Plan Cardio consult dictated Rythm is SR now Abn enzymes probably seconadry to renal failure will obtain echo for further evaluation
--- NOTE | 2017-04-30 16:51 | Ultrasound Report ---
FINAL REPORT EXAM: US RENAL BILAT HISTORY: rf TECHNIQUE: Ultrasound kidneys PRIORS: None. FINDINGS: Right kidney is 13.4 x 5.8 x 5.2 centimeters. There are 3 small simple appearing cyst noted largest measuring 3.1 centimeters Left kidney is 12.1 x 6 x 3 x 5.4 centimeters There is a left renal cyst measuring 2.6 centimeters kidneys demonstrate mildly increased echogenicity bilaterally which may indicate under lying medical renal disease IMPRESSION: Bilateral renal cysts Mildly increased renal echogenicity likely reflecting underlying medical renal disease No evidence for obstructive uropathy
[2017-04-30] MEDS: PROTONIX IV SCH (17:40)
[2017-04-30] MEDS: NOVOLOG SUB-Q SCH (18:25)
[2017-04-30] MEDS: NACL 0.45% 1000 ML 1,000 ML IV SCH (19:04)
[2017-04-30 19:06] LABS: Bilirubin,Urine NEG (Negative); Blood,Urine NEG (Negative); Color,Urine Yellow (Yellow); Granular Casts,Urine 4 /LPF; Hyaline Casts,Urine 1 /LPF; Mucus,Urine FEW /HPF; Nitrite,Urine NEG (Negative)
[2017-04-30] MEDS: DUONEB *Not for PRN Use IH SCH ×2 (19:38→19:50)
[2017-04-30 21:14] LABS: Calcium 7.7 mg/dL (8.4-10.2)
[2017-05-01] MEDS: NOVOLOG SUB-Q SCH ×4 (00:25→19:29)
[2017-05-01] MEDS: NACL 0.45% 1000 ML 1,000 ML IV SCH ×3 (01:14→15:56)
[2017-05-01] MEDS: DUONEB *Not for PRN Use IH SCH ×4 (01:34→22:18)
[2017-05-01] MEDS: ASCORBIC ACID 1,500 MG in NACL 0.9% 50 ML IV SCH ×4 (02:28→20:56)
--- NOTE | 2017-05-01 03:02 | Consultation ---
PULMONARY CRITICAL CARE CONSULT NOTE CONSULTING PHYSICIAN: Dr. Yoder. REASON FOR CONSULTATION: Critical care acute hypoxemic respiratory failure on continuous BiPAP as well as sepsis. CHIEF COMPLAINT AND HISTORY OF PRESENT ILLNESS: The patient is a 77-year-old -[place] male with past medical history, who appears to have significant amongst other things for a diagnosis of diabetes, who was brought in from halfway secondary to hypotension and fever, unable to give much of a history at the time he presented. He was lethargic. He was started on IV antibiotics, required Levophed drip and required bilevel positive air pressure ventilation therapy for ventilatory support and oxygenation. We are asked to evaluate for ICU admission. When I stopped by to see him, he remained on continuous BiPAP, was a little bit more arousable at the time noted. He has had no one when asked about any pain. Since he has been in the Emergency Room, I do not have any history of vomiting or overt aspiration. The patient's tobacco use/abuse history is unknown except that he does not smoke at the halfway. Also, I should say he went into atrial fibrillation with a rapid ventricular response and had to be started at Cardizem drip, which was just about to be transitioned off at the time that I stopped by to see him. This really is as much of the history of presentation as I have. PAST MEDICAL HISTORY: Diabetes, hyperlipidemia, seems to have sequelae of a prior cerebrovascular accident. PAST SURGICAL HISTORY: Unknown. MEDICATIONS: He was on at the time I stopped by to see him were reviewed. Pertinent medications included the following: Lovenox 30 mg subcutaneous daily, Solu-Cortef 50 mg IV q. 6 hours, Zofran 4 mg IV q. 8 h. p.r.n. nausea and vomiting, Zosyn 2.25 grams IV q. 8 h. Thiamine he received a 200 mg IV, it is actually scheduled q. 12 hours and vancomycin he received 1 gram dose I believe. He was also on Cardizem drip at 5 mg per hour. ALLERGIES: No known drug allergies. DIET: Thin, bordering on cachectic looking gentleman, acute weight loss or gain history is unknown. FAMILY AND SOCIAL HISTORY: halfway resident. Alcohol, tobacco, or illicit drug use or abuse history is unknown. Family history; otherwise, unknown. REVIEW OF SYSTEMS: Unobtainable secondary to the patient's medical and mental condition since he has been here, though no gross hematochezia or melena, no gross hematuria, no hematochezia, no bloody tracheal secretions. No hematemesis, no hemoptysis, no witnessed seizures. Review of systems again is; otherwise, unobtainable. PHYSICAL EXAMINATION: VITAL SIGNS: At presentation in the Emergency Room revealed vital signs shows temperature of 103.6 degrees Fahrenheit with a pulse of 140, respiratory rate of 35, blood pressure 89/68 and proceeded deep into the MAPs of over 50s. GENERAL: He is an elderly looking -[place] male, looks his stated age, cachectic, normocephalic, atraumatic on the BiPAP, full face mask with moderately increased work of breathing. HEAD, EYES, EARS, NOSE AND THROAT: He is anicteric. No conjunctival erythema. No gross jugular venous distention. Grossly, no palpable lymph nodes in the supraclavicular or submandibular lymph node chains. No thyromegaly. He has a full face mask over his face, unable to evaluate his oropharynx well. He does appear dry. LUNGS: Auscultation of both lung schuster revealed bilateral rales, no wheezing. HEART: Heart sounds 1 and 2 are heard at the time of my evaluation. Irregular rate and rhythm. No rubs, no murmurs. ABDOMEN: Soft. Bowel sounds are positive, nontender. No palpable hepatosplenomegaly. EXTREMITIES: Without overt digital clubbing or cyanosis and no pedal edema. Dorsalis pedis pulses were palpable bilaterally. NEUROLOGIC: The pupils were equal, round, about 3 mm, reactive to light. Extraocular muscle movements could not be adequately assessed. NEUROLOGIC: He had spontaneous movements to all 4 extremities. The power was reduced in the left upper extremity in particular to the power of about 2-3/5. Otherwise, 4-5/5 in the lower extremities and he had some contractures developed into the left upper extremity. SKIN: Poor turgor without overt tenting, no rash, no cellulitis as far as I can see. LABORATORY DATA: From my review are as follows: White cell count 5800, hemoglobin 12.6, hematocrit 39.5 and a platelet count of 161. D-dimer was elevated at 1356. Arterial blood gas at presentation showed a pH of 7.30, pCO2 of 42, pO2 of 93,000 on 50% FiO2. Today 7.28 on the pH with a pCO2 of 42, base excess is -7, this is also on 50% FiO2. Serum sodium at admission was 152, potassium 4.2, chloride 107, bicarbonate 23, BUN 98, creatinine 3.6 and glucose of 224. Lactic acid level was 2.9. Troponin of 0.468. CPK was up at 784. BNP was elevated. LDL cholesterol was 41. Blood cultures, no growth to date. Influenza A and B rapid screen negative. Radiographic studies have been reviewed. I have also reviewed the radiologist's interpretation. I have an x-ray from 2015 to compare it with and really no significant changes. I will say there is a suggestion of bibasilar infiltrates plus likely plate-like atelectasis. The film is rotated to the left. There is a left IJ central line with the tip in the distal SVC, some hilar enlargement with granulomata in particular on the right. Cardiovascular silhouette appears within normal limits, borderline enlarged. No overt interstitial edema, more likely element of hypoventilation. No gross pneumothorax, no gross bony fractures. ASSESSMENT AND PLAN: 1. Acute hypoxemic respiratory failure on continuous BiPAP. 2. Severe sepsis. 3. Acute kidney injury, possibly over chronic. 4. Hypernatremia. 5. Elevated D-dimer. 6. Elevated cardiac enzymes. 7. History of hyperlipidemia. 8. Possible history of cerebrovascular accident. 9. Adult failure to thrive. PLAN: Continue noninvasive pressure ventilation support around the clock. I will get a stat arterial blood gas and if the pH is significantly improved, I will go ahead and plan to use it only scheduled at bedtime with p.r.n. daytime use. Aspiration precautions will be maintained. He will be started on bronchodilators. I think he will benefit from a venous thromboembolic disorder workup just mostly in light of his sedentary status and elevated D-dimer without any overt source of infection. Bilateral lower extremity Dopplers will be ordered. Oxygen will be weaned to keep sats greater than or equal to about 92-94%. Cardizem drip will be stopped. The EKG suggests relatively wider complex tachycardia what certainly does not look like V-tach to me; right now, this rate is less than 100 at this point and most of that has resolved. There may have been an element of intravascular volume depletion also at play, which I do think is pretty significant. We will continue gentle volume hydration. I will go use an isotonic solution. We will go ahead with half NS as his blood sugars appeared to be elevated and I will run half NS at about 75-100 mL per hour following him clinically. Cardiology evaluation will be at the behest of the attending physician. He certainly will benefit from Nephrology evaluation. Electrolytes will be corrected as necessary. If he is going to remain on the noninvasive pressure ventilation therapy around the clock, attempts will be made to put in a Dobhoff feeding tube, so we can hydrate him, also that way give him some free water. He will be left on GI prophylaxis, which is appropriate. He will be started on DVT prophylaxis. We will continue empiric systemic anti-infective therapy. I will go ahead and get a repeat lactic acid level as well as CRP level and trend as necessary during this admission. Anti-infectives will ultimately be deescalated based on results of clinical and microbiologic data. No acute indication for neuro imaging at this point. Flu and pneumonia vaccination will be per protocol. Thank you very much for the consult, Dr. Yoder. We will follow along. We will make further recommendations as the picture progresses/becomes clearer. He is critically ill on life-sustaining interventions including mechanical continuous noninvasive ventilation as well as vasopressor therapy, at risk for further deterioration including . I should mention the vasopressors will be weaned to keep mean arterial pressures greater than or equal to about 65 mmHg. At this time, we spent about 35-40 minutes of critical care time without overlap. I should mention as soon as we are able to, central venous pressures will be measured and trended and will be used to help guide volume resuscitation. JOB# [id number] KARTHIKEYAN/EUGENIE
--- NOTE | 2017-05-01 03:05 | XRay Report ---
FINAL REPORT PROCEDURE: XR CHEST 1V AP TECHNIQUE: Chest radiograph anteroposterior view. CPT 87338 HISTORY: pneumonia COMPARISON: 04/30/2017 FINDINGS: Heart: Normal. Mediastinum/Vessels: Normal. Lungs/Pleural space: There are infiltrates at the lung bases. There are no effusions or pneumothoraces.. Bony thorax: No acute osseous abnormality. Life support devices: There is a right-sided central venous catheter. The tip is in the superior vena cava.. IMPRESSION: Heart size is normal. There are bilateral lower lobe infiltrates..
--- NOTE | 2017-05-01 03:37 | Consultation ---
CARDIOLOGY EVALUATION HISTORY OF PRESENT ILLNESS: The patient is a 77-year-old gentleman. He was transferred from the intermediate because of hypotension and fever. The patient is somewhat difficult to obtain any history from, somewhat lethargic, but claims that he does not have any chest pain or difficulty in breathing at this time. Initially, he required to be on Levophed drip and BiPAP. He was noted to have atrial fibrillation with rapid ventricular response, for which he was treated with intravenous Cardizem drip. The patient has history of hypertension, diabetes and hyperlipidemia. The patient is known to have had a cerebrovascular accident. PHYSICAL EXAMINATION: GENERAL: Adult gentleman, well built, well nourished, appears to be confused, but in no acute distress at this time. HEENT: The patient appears to have left facial palsy. NECK: Supple. No thyromegaly. Both carotids are palpable and equal. Neck veins are flat. CHEST: Symmetrical. LUNGS: Essentially clear. HEART: S1 and S2 are heard well. No S3. ABDOMEN: Soft, nontender. EXTREMITIES: No significant calf tenderness. CENTRAL NERVOUS SYSTEM: Left hemiplegia. Initial EKG showed atrial fibrillation with rapid ventricular response with a wide QRS tachycardia. At present, he is in sinus rhythm with an intraventricular conduction delay with PACs. LABORATORY DATA: WBC 5.8, hemoglobin 12.6, hematocrit 39.5. Blood gases initially showed severe metabolic acidosis with pH of 7.303, repeat 7.283. Sodium 155, potassium 4.5, BUN 101, creatinine 3.4, blood sugar 262. Lactic acid 2.9. Troponin 0.46, 0.331 and 0.299. BNP 35,000. Total cholesterol 119, LDL 41, HDL 26. IMPRESSION: 1. Atrial fibrillation with rapid ventricular response, treated with Cardizem, now in sinus rhythm. 2. Septicemia, on antibiotics. 3. Hypertension. 4. Hyperlipidemia. 5. Status post cerebrovascular accident. The patient has been in intermediate. The patient is seen for cardiac evaluation. At present, the rhythm is satisfactory. We will obtain an echocardiogram and monitor the patient along with you. Thank you for allowing me to participate in the care of this gentleman. JOB# [id number] KB/[id number]
[2017-05-01] MEDS: VITAMIN B-1 200 MG in NACL 0.9% 50 ML IV SCH ×2 (03:53→15:55)
[2017-05-01] MEDS: ZOSYN/NS 2.25 GM/50ML 2.25 GM/50 ML BAG IV SCH ×3 (04:33→21:31)
[2017-05-01 05:19] LABS: Hematocrit 33.9 % (35.5-45.6); Hemoglobin 10.8 gm/dl (11.8-15.2); Mean Corpuscular HGB Conc 32 % (32-34); Mean Corpuscular Hemoglobin 30 pg (28-32); Mean Corpuscular Volume 95 fl (84-94); Red Blood Count 3.55 M/mm3 (3.65-5.03)
[2017-05-01 05:29] LABS: Calcium 7.8 mg/dL (8.4-10.2)
[2017-05-01] MEDS ORDERED: CARDIZEM IV SCH (06:00)
[2017-05-01] MEDS ORDERED: NACL 0.9% IV SCH (06:00)
[2017-05-01 06:44] LABS: Anisocytosis 1+; Band Neutrophils # (Manual) 2.8 K/mm3; Basophils % (Manual) 0 % (0.0-1.8); Eosinophils % (Manual) 0 % (0.0-4.3); Total Cells Counted 100
[2017-05-01 06:45] LABS: Ovalocytes 1+; Platelet Estimate Consistent w Auto
[2017-05-01 06:46] LABS: Platelet Count 130 K/mm3 (140-440)
[2017-05-01] MEDS ORDERED: LOPRESSOR IV PRN (09:18)
--- NOTE | 2017-05-01 09:35 | Consultation ---
History of Present Illness - Reason for Consult Consult date: 05/01/17 SEPTIC SHOCK Requesting physician: KAYDEN GAYLE - History of Present Illness 77 years old with history of diabetes, chronic SP cath and hyperlipidemia, admitted on 04/30/17 from the retirement due to hypotension and fever. The patient is unable to give a history. He had a previous pneumonia requiring admission in 2016. In the emergency room, initial temperature was 103.6, heart rate 140, respirations 35, O2 sat 90, blood pressure 89/68. Patient was placed on pressors. Initial white count 5.8. Hemoglobin 12.6. Platelets 161. Creatinine 3.6. Lactic acid 2.9. Urinalysis showed large leukocyte esterase and 40 white blood cells. Chest x-ray initially showed pulmonary congestion however repeat chest x-ray showed bilateral infiltrates. Patient old suprapubic catheter was exchanged in the emergency room. Microbiology: Blood cultures: 04/30 ngtd Urine cultures: not sent Current Antimicrobials: Zosyn 04/30 Vancomycin 04/30 Previous Antimicrobials: Past History Past Medical History: diabetes, hyperlipidemia Past Surgical History: Other (suprapubic cath) Family history: no significant family history Medications and Allergies Allergies Allergy/AdvReac Type Severity Reaction Status Date / Time No Known Allergies Allergy Verified 04/30/17 01:13 Home Medications Medication Instructions Recorded Confirmed Last Taken Type Albuterol Sulfate [Ventolin HFA] 2 puff IH Q4H PRN 02/25/15 04/30/17 1 Day Ago History ~04/29/17 2 puffs Q4H prn Famotidine [Pepcid] 20 mg PO BID 02/25/15 04/30/17 1 Day Ago History ~04/29/17 Furosemide [Lasix TAB] 20 mg PO QDAY 02/25/15 04/30/17 1 Day Ago History ~04/29/17 Gabapentin [Neurontin] 100 mg PO Q8HR 02/25/15 04/30/17 1 Day Ago History ~04/29/17 Glimepiride [Amaryl] 1 mg PO QAM 02/25/15 04/30/17 1 Day Ago History ~04/29/17 1 mg Metformin HCl [Fortamet ER] 1,000 mg PO BID 02/25/15 04/30/17 1 Day Ago History ~04/29/17 1000 mg Simvastatin [Zocor TAB] 40 mg PO QHS 02/25/15 04/30/17 1 Day Ago History ~04/29/17 40 mg Oxybutynin Chloride [Ditropan Xl] 10 mg PO QDAY 08/06/15 04/30/17 1 Day Ago History ~04/29/17 10 mg Phenazopyridine [Pyridium] 200 mg PO TID 08/06/15 04/30/17 1 Day Ago History ~04/29/17 200 Sulfamethoxazole/Trimethoprim 1 each PO BID 08/06/15 04/30/17 1 Day Ago History [Bactrim DS TAB] ~04/29/17 Tamsulosin [Flomax] 0.4 mg PO QDAY 08/06/15 04/30/17 1 Day Ago History ~04/29/17 0.04 traMADol [Ultram] 50 mg PO Q8HR PRN 08/06/15 04/30/17 1 Day Ago History ~04/29/17 50mg Active Meds: Active Medications Acetaminophen (Tylenol) 650 mg PO Q4H PRN PRN Reason: Pain MILD(1-3)/Fever >100.5/IRWIN Albuterol/Ipratropium (Duoneb *Not For Prn Use*) 1 ampul IH Q6HRT [facility] Last Admin: 05/01/17 08:14 Dose: 1 ampul Dextrose (D50w (25gm) Syringe) 50 ml IV PRN PRN PRN Reason: Hypoglycemia Enoxaparin Sodium (Lovenox) 30 mg SUB-Q DAILY [facility] Last Admin: 04/30/17 13:11 Dose: 30 mg Thiamine HCl 200 mg/ Sodium (Chloride) 52 mls @ 100 mls/hr IV Q12H [facility] Last Admin: 05/01/17 03:53 Dose: 100 mls/hr Ascorbic Acid 1,500 mg/ Sodium (Chloride) 53 mls @ 50 mls/30 min IV Q6H [facility] Last Admin: 05/01/17 09:15 Dose: Not Given Piperacillin Sod/Tazobactam Sod (Zosyn/Ns 2.25 Gm/50ml) 2.25 gm in 50 mls @ 100 mls/hr IV Q8H [facility] Last Admin: 05/01/17 04:33 Dose: 100 mls/hr Sodium Chloride (Nacl 0.45% 1000 Ml) 1,000 mls @ 150 mls/hr IV DIRECT CORI Last Admin: 05/01/17 08:44 Dose: 150 mls/hr Diltiazem HCl 100 mg/ Sodium (Chloride) 100 mls @ 2.5 mls/hr IV TITR CORI; 2.5 MG/HR PRN Reason: Protocol Insulin Aspart (Novolog) 0 units SUB-Q Q6HR [facility] PRN Reason: Protocol Last Admin: 05/01/17 06:48 Dose: 6 units Methylprednisolone Sodium Succinate (Solu-Medrol) 125 mg IM Q6H [facility] Last Admin: 05/01/17 03:53 Dose: 125 mg Metoprolol Tartrate (Lopressor) 5 mg IV Q6HR PRN PRN Reason: Tachyarrhythmias Ondansetron HCl (Zofran) 4 mg IV Q8H PRN PRN Reason: N/V unrelieved by Reglan Pantoprazole Sodium (Protonix) 40 mg IV QDAY [facility] Last Admin: 04/30/17 17:40 Dose: 40 mg Tamsulosin HCl (Flomax) 0.4 mg PO QDAY [facility] Vancomycin HCl (Vancomycin Pharmacy To Dose) 1 each IV PKCONSULT CORI PRN Reason: Protocol Physical Examination - Physical Exam Narrative exam: General appearance: somonlent but arousable in NAD on BIPAP Eyes: anicteric sclerae, moist conjunctivae; no lid-lag; PERRLA HENT: Atraumatic; oropharynx limited with BIPAP mask Neck: Trachea midline; supple, no thyromegaly or lymphadenopathy Lungs: scattered rhonchi CV: RRR Abdomen: Soft, non-tender; +SP cath clean Extremities: mild peripheral edema, no extremity lymphadenopathy Skin: Normal temperature, turgor and texture; no rash, ulcers or subcutaneous nodules Psych: Appropriate affect, alert and oriented to person, place and time. Neuro: alert and oriented x 3. Moving all extermities Lines: No CVL / PICC - Constitutional Vitals: Vital Signs Temp Pulse Resp BP Pulse Ox 97.3 F L 89 16 115/63 100 05/01/17 08:41 05/01/17 08:22 05/01/17 08:22 05/01/17 08:22 05/01/17 08:22 Temperature -Last 24 Hours Temperature 97.3 F Temperature 97.4 F Temperature 98 F Temperature 99 F Temperature 98.2 F Temperature 98.3 F Results - Labs CBC & Chem 7: 05/01/17 04:29 05/01/17 04:29 Labs: Abnormal lab results 04/30/17 04/30/17 04/30/17 Range/Units 09:43 09:43 12:11 WBC (4.5-11.0) K/mm3 RBC (3.65-5.03) M/mm3 Hgb (11.8-15.2) gm/dl Hct (35.5-45.6) % MCV (84-94) fl RDW (13.2-15.2) % Plt Count (140-440) K/mm3 Seg Neuts % (Manual) (40.0-70.0) % Lymphocytes % (Manual) (13.4-35.0) % Seg Neutrophils # Man (1.8-7.7) K/mm3 Lymphocytes # (Manual) (1.2-5.4) K/mm3 POC ABG pH (7.35-7.45) Sodium 152 H (137-145) mmol/L Chloride 112.1 H (98-107) mmol/L Carbon Dioxide (22-30) mmol/L BUN 100 H (9-20) mg/dL Creatinine 3.3 H (0.8-1.5) mg/dL Glucose 267 H (75-100) mg/dL POC Glucose (70-105) Hemoglobin A1c (4-6) % Calcium 7.8 L (8.4-10.2) mg/dL Total Creatine Kinase 682 H 693 H (55-170) units/L Troponin T 0.331 H* D 0.299 H* (0.00-0.029) ng/mL C-Reactive Protein (0.00-1.30) mg/dL Urine WBC (Auto) (0.0-6.0) /HPF 04/30/17 04/30/17 04/30/17 Range/Units 12:11 15:24 17:58 WBC (4.5-11.0) K/mm3 RBC (3.65-5.03) M/mm3 Hgb (11.8-15.2) gm/dl Hct (35.5-45.6) % MCV (84-94) fl RDW (13.2-15.2) % Plt Count (140-440) K/mm3 Seg Neuts % (Manual) (40.0-70.0) % Lymphocytes % (Manual) (13.4-35.0) % Seg Neutrophils # Man (1.8-7.7) K/mm3 Lymphocytes # (Manual) (1.2-5.4) K/mm3 POC ABG pH 7.325 L (7.35-7.45) Sodium 155 H (137-145) mmol/L Chloride 114.3 H (98-107) mmol/L Carbon Dioxide (22-30) mmol/L BUN 101 H (9-20) mg/dL Creatinine 3.4 H (0.8-1.5) mg/dL Glucose 262 H (75-100) mg/dL POC Glucose 255 H (70-105) Hemoglobin A1c (4-6) % Calcium 7.7 L (8.4-10.2) mg/dL Total Creatine Kinase (55-170) units/L Troponin T (0.00-0.029) ng/mL C-Reactive Protein (0.00-1.30) mg/dL Urine WBC (Auto) (0.0-6.0) /HPF 04/30/17 04/30/17 04/30/17 Range/Units 18:17 20:24 20:24 WBC (4.5-11.0) K/mm3 RBC (3.65-5.03) M/mm3 Hgb (11.8-15.2) gm/dl Hct (35.5-45.6) % MCV (84-94) fl RDW (13.2-15.2) % Plt Count (140-440) K/mm3 Seg Neuts % (Manual) (40.0-70.0) % Lymphocytes % (Manual) (13.4-35.0) % Seg Neutrophils # Man (1.8-7.7) K/mm3 Lymphocytes # (Manual) (1.2-5.4) K/mm3 POC ABG pH (7.35-7.45) Sodium 152 H (137-145) mmol/L Chloride 113.4 H (98-107) mmol/L Carbon Dioxide 18 L (22-30) mmol/L BUN 103 H (9-20) mg/dL Creatinine 3.1 H (0.8-1.5) mg/dL Glucose 228 H (75-100) mg/dL POC Glucose (70-105) Hemoglobin A1c 7.5 H (4-6) % Calcium 7.7 L (8.4-10.2) mg/dL Total Creatine Kinase (55-170) units/L Troponin T (0.00-0.029) ng/mL C-Reactive Protein (0.00-1.30) mg/dL Urine WBC (Auto) 40.0 H (0.0-6.0) /HPF 04/30/17 05/01/17 05/01/17 Range/Units 20:24 00:19 04:29 WBC 3.4 L (4.5-11.0) K/mm3 RBC 3.55 L (3.65-5.03) M/mm3 Hgb 10.8 L (11.8-15.2) gm/dl Hct 33.9 L (35.5-45.6) % MCV 95 H (84-94) fl RDW 17.0 H (13.2-15.2) % Plt Count 130 L (140-440) K/mm3 Seg Neuts % (Manual) 12.0 L (40.0-70.0) % Lymphocytes % (Manual) 3.0 L (13.4-35.0) % Seg Neutrophils # Man 0.4 L (1.8-7.7) K/mm3 Lymphocytes # (Manual) 0.1 L (1.2-5.4) K/mm3 POC ABG pH (7.35-7.45) Sodium (137-145) mmol/L Chloride (98-107) mmol/L Carbon Dioxide (22-30) mmol/L BUN (9-20) mg/dL Creatinine (0.8-1.5) mg/dL Glucose (75-100) mg/dL POC Glucose 289 H (70-105) Hemoglobin A1c (4-6) % Calcium (8.4-10.2) mg/dL Total Creatine Kinase (55-170) units/L Troponin T (0.00-0.029) ng/mL C-Reactive Protein 16.90 H (0.00-1.30) mg/dL Urine WBC (Auto) (0.0-6.0) /HPF 05/01/17 05/01/17 Range/Units 04:29 05:09 WBC (4.5-11.0) K/mm3 RBC (3.65-5.03) M/mm3 Hgb (11.8-15.2) gm/dl Hct (35.5-45.6) % MCV (84-94) fl RDW (13.2-15.2) % Plt Count (140-440) K/mm3 Seg Neuts % (Manual) (40.0-70.0) % Lymphocytes % (Manual) (13.4-35.0) % Seg Neutrophils # Man (1.8-7.7) K/mm3 Lymphocytes # (Manual) (1.2-5.4) K/mm3 POC ABG pH (7.35-7.45) Sodium 154 H (137-145) mmol/L Chloride 115.1 H (98-107) mmol/L Carbon Dioxide 18 L (22-30) mmol/L BUN 102 H (9-20) mg/dL Creatinine 3.2 H (0.8-1.5) mg/dL Glucose 257 H (75-100) mg/dL POC Glucose 330 H (70-105) Hemoglobin A1c (4-6) % Calcium 7.8 L (8.4-10.2) mg/dL Total Creatine Kinase (55-170) units/L Troponin T (0.00-0.029) ng/mL C-Reactive Protein (0.00-1.30) mg/dL Urine WBC (Auto) (0.0-6.0) /HPF Assessment and Plan Assessment: 1) Sepsis with initial septic shock: Present on admission, manifested by fever, tachycardia, hypotension, increased lactate. Etiology most likely UTI +/- pneumonia. 2) Complicated UTI with a SP cath: urine cx was not sent. SP cath was exchanged in the ED. 3) Presumed bilateral pneumonia 4) AMIRA 5) Acute resp failure 6) Pancytopenia ? from sepsis Plan: -follow-up blood cultures -obtain urine culture -continue zosyn and vancomycin renally dosed -please remove webb and IJ TLC is not longer needed Thank you Dr Gayle for your consultation, will follow up with you. Ying Devi MD Infectious Diseases Specialist [facility] ([facility] M [phone] O [phone]
--- NOTE | 2017-05-01 10:01 | Consultation ---
History of Present Illness - Reason for Consult Consult date: 05/01/17 acute renal failure Requesting physician: KAYDEN BRAUN - History of Present Illness 67-year-old male brought from half-way on account of fever and hypotension. Temperature was 103.6 on presentation. Patient is unable to give history. Patient has a history of urinary retention with suprapubic catheter. I am unable to get much of a history of events leading to this. Of note at a half-way patient was on Bactrim, gabapentin, metformin and furosemide. Patient is being volume resuscitated and admitted to intensive care unit. He is also on BiPAP because of acute respiratory failure. BUN/creatinine elevated at 98/3.6 mg percent due to was seen to 101/3.4 mg/dL. I'm consulted to assist in managing this. Patient is not on any nonsteroidal anti-inflammatory drugs and has not been exposed to radiocontrast. He was hypotensive on presentation ( with blood pressure as low as 67/44 mmHg ) in septic shock with lactic acidosis Past History Past Medical History: diabetes, hyperlipidemia Past Surgical History: Other (suprapubic catheter) Social history: other (Unable to obtain) Family history: other (Unable to obtain) Medications and Allergies Allergies Allergy/AdvReac Type Severity Reaction Status Date / Time No Known Allergies Allergy Verified 04/30/17 01:13 Home Medications Medication Instructions Recorded Confirmed Last Taken Type Albuterol Sulfate [Ventolin HFA] 2 puff IH Q4H PRN 02/25/15 04/30/17 1 Day Ago History ~04/29/17 2 puffs Q4H prn Famotidine [Pepcid] 20 mg PO BID 02/25/15 04/30/17 1 Day Ago History ~04/29/17 Furosemide [Lasix TAB] 20 mg PO QDAY 02/25/15 04/30/17 1 Day Ago History ~04/29/17 Gabapentin [Neurontin] 100 mg PO Q8HR 02/25/15 04/30/17 1 Day Ago History ~04/29/17 Glimepiride [Amaryl] 1 mg PO QAM 02/25/15 04/30/17 1 Day Ago History ~04/29/17 1 mg Metformin HCl [Fortamet ER] 1,000 mg PO BID 02/25/15 04/30/17 1 Day Ago History ~04/29/17 1000 mg Simvastatin [Zocor TAB] 40 mg PO QHS 02/25/15 04/30/17 1 Day Ago History ~04/29/17 40 mg Oxybutynin Chloride [Ditropan Xl] 10 mg PO QDAY 08/06/15 04/30/17 1 Day Ago History ~04/29/17 10 mg Phenazopyridine [Pyridium] 200 mg PO TID 08/06/15 04/30/17 1 Day Ago History ~04/29/17 200 Sulfamethoxazole/Trimethoprim 1 each PO BID 08/06/15 04/30/17 1 Day Ago History [Bactrim DS TAB] ~04/29/17 Tamsulosin [Flomax] 0.4 mg PO QDAY 08/06/15 04/30/17 1 Day Ago History ~04/29/17 0.04 traMADol [Ultram] 50 mg PO Q8HR PRN 08/06/15 04/30/17 1 Day Ago History ~04/29/17 50mg Active Meds: Active Medications Acetaminophen (Tylenol) 650 mg PO Q4H PRN PRN Reason: Pain MILD(1-3)/Fever >100.5/[facility] Albuterol/Ipratropium (Duoneb *Not For Prn Use*) 1 ampul IH Q6HRT [facility] Last Admin: 05/01/17 08:14 Dose: 1 ampul Dextrose (D50w (25gm) Syringe) 50 ml IV PRN PRN PRN Reason: Hypoglycemia Enoxaparin Sodium (Lovenox) 30 mg SUB-Q DAILY [facility] Last Admin: 04/30/17 13:11 Dose: 30 mg Thiamine HCl 200 mg/ Sodium (Chloride) 52 mls @ 100 mls/hr IV Q12H [facility] Last Admin: 05/01/17 03:53 Dose: 100 mls/hr Ascorbic Acid 1,500 mg/ Sodium (Chloride) 53 mls @ 50 mls/30 min IV Q6H [facility] Last Admin: 05/01/17 09:15 Dose: Not Given Piperacillin Sod/Tazobactam Sod (Zosyn/Ns 2.25 Gm/50ml) 2.25 gm in 50 mls @ 100 mls/hr IV Q8H [facility] Last Admin: 05/01/17 04:33 Dose: 100 mls/hr Sodium Chloride (Nacl 0.45% 1000 Ml) 1,000 mls @ 150 mls/hr IV DIRECT CORI Last Admin: 05/01/17 08:44 Dose: 150 mls/hr Diltiazem HCl 100 mg/ Sodium (Chloride) 100 mls @ 2.5 mls/hr IV TITR CORI; 2.5 MG/HR PRN Reason: Protocol Insulin Aspart (Novolog) 0 units SUB-Q Q6HR [facility] PRN Reason: Protocol Last Admin: 05/01/17 06:48 Dose: 6 units Methylprednisolone Sodium Succinate (Solu-Medrol) 125 mg IM Q6H [facility] Last Admin: 05/01/17 03:53 Dose: 125 mg Metoprolol Tartrate (Lopressor) 5 mg IV Q6HR PRN PRN Reason: Tachyarrhythmias Ondansetron HCl (Zofran) 4 mg IV Q8H PRN PRN Reason: N/V unrelieved by Reglan Pantoprazole Sodium (Protonix) 40 mg IV QDAY [facility] Last Admin: 04/30/17 17:40 Dose: 40 mg Tamsulosin HCl (Flomax) 0.4 mg PO QDAY [facility] Vancomycin HCl (Vancomycin Pharmacy To Dose) 1 each IV PKCONSULT CORI PRN Reason: Protocol Review of Systems ROS unobtainable: due to mental status Exam - Vital Signs Vital signs: Vital Signs Pulse Resp Pulse Ox 140 H 35 H 90 04/30/17 00:48 04/30/17 00:48 04/30/17 00:48 - Physical Exam Narrative exam: Middle-aged male lying in bed on BiPAP, Chronically Ill-Looking with asthenic biuld HEENT: NCAT, on BiPAP Neck: Supple, no venous distention CVS: S1S2 RRR with no murmur, rub or gallop Chest: Bilateral rhonchi Abdomen: Protuberant, soft, nontender, suprapubic catheter intact no organomegaly, bowel sounds are present Extremities: No edema, muscle wasting Skin dry with scaling Neuro: Drowsy, awakens and says a few words, not following commands Results - Lab Results 05/01/17 04:29 05/01/17 04:29 Most recent lab results Calcium 7.8 mg/dL (8.4-10.2) L 05/01/17 04:29 Assessment and Plan - Patient Problems (1) Septic shock Current Visit: Yes Status: Acute Plan to address problem: Patient volume resuscitated. Empiric antibiotics pending cultures. Continue antibiotics appropriately dosed for renal function. Pharmacy to assist with dosing (2) Acute kidney failure with tubular necrosis Current Visit: Yes Status: Acute Plan to address problem: Acute tubular necrosis secondary to sepsis/hypotension. It is unclear if the patient has baseline chronic disease. With proteinuria on urinalysis, definitely concerned about baseline diabetic nephropathy. Kidney indices a bit worse. Will quantify proteinuria. Check urine eosinophils. Follow-up electrolytes and renal function. Follow-up kidney ultrasound (3) Type 2 diabetes mellitus, uncontrolled Current Visit: Yes Status: Acute Plan to address problem: Blood sugar management by primary attending (4) Metabolic acidosis Current Visit: Yes Status: Acute Plan to address problem: Uremic and lactic acidosis. Lactic acidosis improving with improving blood pressure (5) Pancytopenia Current Visit: Yes Status: Acute Plan to address problem: Probably secondary to sepsis. Follow-up blood counts (6) Complicated urinary tract infection Current Visit: Yes Status: Acute Plan to address problem: The patient is on antibiotics per Infectious disease. Follow-up cultures (7) Acute respiratory failure with hypoxia Current Visit: Yes Status: Acute Plan to address problem: Respiratory support by pulmonary. Patient is on BiPAP
--- NOTE | 2017-05-01 10:37 | Progress Note ---
Assessment and Plan Assessment: Paroxysmal atrial fibrillation-->currently sinus rhythm Elevated troponin Sepsis Hypertension Hyperlipidemia Hx. of CVA Plan: Continue current management. Will f/u echo results. Given elevated troponin, consider stress MPI when clinically stable. The patient has been seen in conjunction with Dr. Neely who agrees with the assessment and plan of care. Subjective Date of service: 05/01/17 Principal diagnosis: atrial fibrillation, elevated troponin Interval history: Pt. resting in bed. Sinus rhythm on the monitor. Objective Last Vital Signs Temp 97.3 F L 05/01/17 08:41 Pulse 77 05/01/17 09:51 Resp 12 05/01/17 09:51 BP 127/73 05/01/17 09:51 Pulse Ox 98 05/01/17 09:51 - Physical Examination General: No Apparent Distress HEENT: Positive: Normocephaly, Mucus Membranes Moist Neck: Positive: neck supple, trachea midline Cardiac: Positive: Reg Rate and Rhythm, S1/S2 Lungs: Positive: clear to auscultation Neuro: Positive: Grossly Intact Abdomen: Positive: Soft, Active Bowel Sounds. Negative: Tender Skin: Positive: Clear. Negative: Rash Extremities: Present: normal. Absent: edema - Labs and Meds Cardiac Enzymes 04/30/17 04/30/17 Range/Units 09:43 12:11 CK-MB (CK-2) 2.3 2.5 (0.0-4.0) ng/mL CBC 05/01/17 Range/Units 04:29 WBC 3.4 L (4.5-11.0) K/mm3 RBC 3.55 L (3.65-5.03) M/mm3 Hgb 10.8 L (11.8-15.2) gm/dl Hct 33.9 L (35.5-45.6) % Plt Count 130 L (140-440) K/mm3 Comprehensive Metabolic Panel 04/30/17 04/30/17 05/01/17 Range/Units 12:11 20:24 04:29 Sodium 155 H 152 H 154 H (137-145) mmol/L Potassium 4.5 4.7 4.2 (3.6-5.0) mmol/L Chloride 114.3 H 113.4 H 115.1 H (98-107) mmol/L Carbon Dioxide 22 18 L 18 L (22-30) mmol/L BUN 101 H 103 H 102 H (9-20) mg/dL Creatinine 3.4 H 3.1 H 3.2 H (0.8-1.5) mg/dL Glucose 262 H 228 H 257 H (75-100) mg/dL Calcium 7.7 L 7.7 L 7.8 L (8.4-10.2) mg/dL - Imaging and Cardiology Echo: pending - Telemetry EKG Rhythm: Sinus Rhythm
[2017-05-01] MEDS: LOVENOX SUB-Q SCH (12:14)
[2017-05-01] MEDS: FLOMAX PO SCH (12:14)
[2017-05-01] MEDS: PROTONIX IV SCH (13:09)
--- NOTE | 2017-05-01 13:21 | Progress Note ---
Assessment and Plan 77-year-old man with a history of diabetes, hyperlipidemia [facility] and fever. The patient is unable to give a history , is lethargic but arousable Acute Hypoxemic Respiratory Failure Sepsis Syndrome Atrial Fib with RVR AMIRA (? on CKD) Elevated D-dimer NSTEMI Hyperlipidemia Hypernatremia H/O CVA Adult FTT - continue supplemental oxygen to keep Sats > 90% - continue aspiration precautions - NT suction now and prn thereafter - ACS protocol per cardiology - continue empiric AB's and follow C&S, also clinically - continue BIPAP scheduled qhs with prn daytime use - place NGT for enteral nutrition - ST evaluation - continue GI & VTE prophylaxis - A-fib rate control per cardiology recs - gentle hydration re: Azotemia - nephrology on case - follow I's & O's and electrolytes - resume vasopressors if MAP < 60mmHg - flu & pneumovax addressed per protocol Subjective Date of service: 05/01/17 Principal diagnosis: atrial fibrillation, elevated troponin Interval history: Patient is seen today for: Atrial Fib with RVR; Acute Hypoxemic Resp Failure: Sepsis Syndrome Seen and examined at bedside; 24hour events reviewed; nursing and respiratory care staff consulted; no adverse overnight events reported to me; Continues to require NIPPV support Daughter at the bedside Discussed in interdisciplinary rounds Objective - Exam Narrative Exam: Middle-aged male lying in bed on BiPAP, Chronically Ill-Looking HEENT: NCAT, on BiPAP Neck: Supple, no venous distention CVS: S1S2 RRR with no murmur, rub or gallop Chest: Bilateral rhonchi Abdomen: Protuberant, soft, nontender, suprapubic catheter intact no organomegaly, bowel sounds are present Extremities: No edema, muscle wasting Skin dry with scaling Neuro: Drowsy, awakens and says a few words, not following commands Vital Signs - 12hr 05/01/17 05/01/17 05/01/17 01:31 01:34 01:41 Temperature Pulse Rate 83 77 Pulse Rate [ 78 Anterior Bilateral Throughout] Respiratory 13 17 Rate Respiratory 18 Rate [Anterior Bilateral Throughout] Blood Pressure 139/69 139/69 O2 Sat by Pulse 96 100 Oximetry 05/01/17 05/01/17 05/01/17 01:45 01:51 02:01 Temperature Pulse Rate 82 84 Pulse Rate [ 78 Anterior Bilateral Throughout] Respiratory 13 15 Rate Respiratory 16 Rate [Anterior Bilateral Throughout] Blood Pressure 139/69 116/59 O2 Sat by Pulse 97 96 Oximetry 05/01/17 05/01/17 05/01/17 02:10 02:21 02:31 Temperature Pulse Rate 86 77 121 H Pulse Rate [ Anterior Bilateral Throughout] Respiratory 11 L 12 13 Rate Respiratory Rate [Anterior Bilateral Throughout] Blood Pressure 116/59 116/59 106/52 O2 Sat by Pulse 96 96 97 Oximetry 05/01/17 05/01/17 05/01/17 02:41 02:51 03:00 Temperature Pulse Rate 122 H 127 H 115 H Pulse Rate [ Anterior Bilateral Throughout] Respiratory 14 14 14 Rate Respiratory Rate [Anterior Bilateral Throughout] Blood Pressure 116/59 116/59 96/47 O2 Sat by Pulse 95 95 94 Oximetry 05/01/17 05/01/17 05/01/17 03:11 03:21 03:30 Temperature 97.4 F L Pulse Rate 133 H 116 H 127 H Pulse Rate [ Anterior Bilateral Throughout] Respiratory 14 14 14 Rate Respiratory Rate [Anterior Bilateral Throughout] Blood Pressure 96/47 96/47 75/50 O2 Sat by Pulse 94 94 95 Oximetry 05/01/17 05/01/17 05/01/17 03:51 04:00 04:01 Temperature Pulse Rate 134 H 122 H Pulse Rate [ Anterior Bilateral Throughout] Respiratory 14 20 14 Rate Respiratory Rate [Anterior Bilateral Throughout] Blood Pressure 108/60 109/58 O2 Sat by Pulse 97 95 96 Oximetry 05/01/17 05/01/17 05/01/17 04:11 04:21 04:27 Temperature Pulse Rate 132 H 119 H 106 H Pulse Rate [ Anterior Bilateral Throughout] Respiratory 21 16 15 Rate Respiratory Rate [Anterior Bilateral Throughout] Blood Pressure 109/58 109/58 109/58 O2 Sat by Pulse 96 97 114 H Oximetry 05/01/17 05/01/17 05/01/17 04:30 04:41 04:51 Temperature Pulse Rate 120 H 117 H 113 H Pulse Rate [ Anterior Bilateral Throughout] Respiratory 14 14 15 Rate Respiratory Rate [Anterior Bilateral Throughout] Blood Pressure 99/63 99/63 99/63 O2 Sat by Pulse 98 98 98 Oximetry 05/01/17 05/01/17 05/01/17 05:01 05:11 05:21 Temperature Pulse Rate 128 H 133 H 116 H Pulse Rate [ Anterior Bilateral Throughout] Respiratory 16 13 15 Rate Respiratory Rate [Anterior Bilateral Throughout] Blood Pressure 85/52 85/52 93/55 O2 Sat by Pulse 98 97 98 Oximetry 05/01/17 05/01/17 05/01/17 05:41 05:51 06:21 Temperature Pulse Rate 110 H 116 H 129 H Pulse Rate [ Anterior Bilateral Throughout] Respiratory 15 15 14 Rate Respiratory Rate [Anterior Bilateral Throughout] Blood Pressure 89/59 93/55 84/55 O2 Sat by Pulse 99 99 99 Oximetry 05/01/17 05/01/17 05/01/17 06:30 06:43 06:51 Temperature Pulse Rate 93 H 82 80 Pulse Rate [ Anterior Bilateral Throughout] Respiratory 17 13 14 Rate Respiratory Rate [Anterior Bilateral Throughout] Blood Pressure 95/65 O2 Sat by Pulse 99 99 99 Oximetry 05/01/17 05/01/17 05/01/17 07:00 07:11 07:21 Temperature Pulse Rate 84 84 88 Pulse Rate [ Anterior Bilateral Throughout] Respiratory 13 14 13 Rate Respiratory Rate [Anterior Bilateral Throughout] Blood Pressure 113/65 113/65 113/65 O2 Sat by Pulse 99 99 99 Oximetry 05/01/17 05/01/17 05/01/17 07:30 07:41 07:51 Temperature Pulse Rate 92 H 80 76 Pulse Rate [ Anterior Bilateral Throughout] Respiratory 13 13 12 Rate Respiratory Rate [Anterior Bilateral Throughout] Blood Pressure 118/65 118/65 118/65 O2 Sat by Pulse 99 99 99 Oximetry 05/01/17 05/01/17 05/01/17 08:00 08:11 08:20 Temperature Pulse Rate 88 89 Pulse Rate [ 91 H 96 H Anterior Bilateral Throughout] Respiratory 14 14 Rate Respiratory 10 L 11 L Rate [Anterior Bilateral Throughout] Blood Pressure 115/63 115/63 O2 Sat by Pulse 98 98 Oximetry 05/01/17 05/01/17 05/01/17 08:21 08:22 08:30 Temperature Pulse Rate 91 H 89 93 H Pulse Rate [ Anterior Bilateral Throughout] Respiratory 10 L 16 10 L Rate Respiratory Rate [Anterior Bilateral Throughout] Blood Pressure 115/63 115/63 125/65 O2 Sat by Pulse 100 100 100 Oximetry 05/01/17 05/01/17 05/01/17 08:41 08:51 09:00 Temperature 97.3 F L Pulse Rate 91 H 87 82 Pulse Rate [ Anterior Bilateral Throughout] Respiratory 11 L 10 L 12 Rate Respiratory Rate [Anterior Bilateral Throughout] Blood Pressure 125/65 125/65 121/64 O2 Sat by Pulse 100 100 100 Oximetry 05/01/17 05/01/17 05/01/17 09:11 09:21 09:30 Temperature Pulse Rate 89 82 78 Pulse Rate [ Anterior Bilateral Throughout] Respiratory 12 10 L 14 Rate Respiratory Rate [Anterior Bilateral Throughout] Blood Pressure 121/64 121/64 127/73 O2 Sat by Pulse 100 100 100 Oximetry 05/01/17 05/01/17 09:41 09:51 Temperature Pulse Rate 76 77 Pulse Rate [ Anterior Bilateral Throughout] Respiratory 14 12 Rate Respiratory Rate [Anterior Bilateral Throughout] Blood Pressure 127/73 127/73 O2 Sat by Pulse 99 98 Oximetry CBC and BMP: 05/02/17 06:00 05/03/17 09:44 ABG, PT/INR, D-dimer: ABG POC ABG pH 7.269 (7.35-7.45) L 05/01/17 09:44 POC ABG pCO2 41.2 (35-45) 05/01/17 09:44 POC ABG pO2 121 (80-105) H 05/01/17 09:44 POC ABG HCO3 18.9 05/01/17 09:44 POC ABG Total CO2 20 05/01/17 09:44 POC ABG O2 Sat 98 05/01/17 09:44 PT/INR, D-dimer D-Dimer 1356.09 ng/mlDDU (0-234) H 04/30/17 01:16 Abnormal lab findings: Abnormal Labs 04/30/17 04/30/17 04/30/17 01:16 01:16 01:16 WBC RBC Hgb Hct MCV 95 H RDW 16.6 H Plt Count Lymph % (Auto) 46.1 H [place] % (Auto) 11.4 H Seg Neuts % (Manual) Lymphocytes % (Manual) Seg Neutrophils # Man Lymphocytes # (Manual) D-Dimer 1356.09 H POC ABG pH POC ABG pO2 Sodium 152 H Chloride 107.4 H Carbon Dioxide BUN 98 H Creatinine 3.6 H Glucose 224 H POC Glucose Hemoglobin A1c Lactic Acid Calcium AST 55 H Total Creatine Kinase 759 H Troponin T 0.468 H* C-Reactive Protein NT-Pro-B Natriuret Pep Albumin 3.6 L Triglycerides 260 H LDL Cholesterol Direct 41 L HDL Cholesterol 26 L Urine WBC (Auto) 04/30/17 04/30/17 04/30/17 01:16 01:16 01:16 WBC RBC Hgb Hct MCV RDW Plt Count Lymph % (Auto) [place] % (Auto) Seg Neuts % (Manual) Lymphocytes % (Manual) Seg Neutrophils # Man Lymphocytes # (Manual) D-Dimer POC ABG pH POC ABG pO2 Sodium Chloride Carbon Dioxide BUN Creatinine Glucose POC Glucose Hemoglobin A1c Lactic Acid 2.90 H* Calcium AST Total Creatine Kinase 784 H Troponin T C-Reactive Protein NT-Pro-B Natriuret Pep 16109 H Albumin Triglycerides LDL Cholesterol Direct HDL Cholesterol Urine WBC (Auto) 04/30/17 04/30/17 04/30/17 03:27 05:56 09:43 WBC RBC Hgb Hct MCV RDW Plt Count Lymph % (Auto) [place] % (Auto) Seg Neuts % (Manual) Lymphocytes % (Manual) Seg Neutrophils # Man Lymphocytes # (Manual) D-Dimer POC ABG pH 7.303 L 7.283 L POC ABG pO2 68 L Sodium Chloride Carbon Dioxide BUN Creatinine Glucose POC Glucose Hemoglobin A1c Lactic Acid Calcium AST Total Creatine Kinase 682 H Troponin T 0.331 H* D C-Reactive Protein NT-Pro-B Natriuret Pep Albumin Triglycerides LDL Cholesterol Direct HDL Cholesterol Urine WBC (Auto) 04/30/17 04/30/17 04/30/17 09:43 12:11 12:11 WBC RBC Hgb Hct MCV RDW Plt Count Lymph % (Auto) [place] % (Auto) Seg Neuts % (Manual) Lymphocytes % (Manual) Seg Neutrophils # Man Lymphocytes # (Manual) D-Dimer POC ABG pH POC ABG pO2 Sodium 152 H 155 H Chloride 112.1 H 114.3 H Carbon Dioxide BUN 100 H 101 H Creatinine 3.3 H 3.4 H Glucose 267 H 262 H POC Glucose Hemoglobin A1c Lactic Acid Calcium 7.8 L 7.7 L AST Total Creatine Kinase 693 H Troponin T 0.299 H* C-Reactive Protein NT-Pro-B Natriuret Pep Albumin Triglycerides LDL Cholesterol Direct HDL Cholesterol Urine WBC (Auto) 04/30/17 04/30/17 04/30/17 15:24 17:58 18:17 WBC RBC Hgb Hct MCV RDW Plt Count Lymph % (Auto) [place] % (Auto) Seg Neuts % (Manual) Lymphocytes % (Manual) Seg Neutrophils # Man Lymphocytes # (Manual) D-Dimer POC ABG pH 7.325 L POC ABG pO2 Sodium Chloride Carbon Dioxide BUN Creatinine Glucose POC Glucose 255 H Hemoglobin A1c Lactic Acid Calcium AST Total Creatine Kinase Troponin T C-Reactive Protein NT-Pro-B Natriuret Pep Albumin Triglycerides LDL Cholesterol Direct HDL Cholesterol Urine WBC (Auto) 40.0 H 04/30/17 04/30/17 04/30/17 20:24 20:24 20:24 WBC RBC Hgb Hct MCV RDW Plt Count Lymph % (Auto) [place] % (Auto) Seg Neuts % (Manual) Lymphocytes % (Manual) Seg Neutrophils # Man Lymphocytes # (Manual) D-Dimer POC ABG pH POC ABG pO2 Sodium 152 H Chloride 113.4 H Carbon Dioxide 18 L BUN 103 H Creatinine 3.1 H Glucose 228 H POC Glucose Hemoglobin A1c 7.5 H Lactic Acid Calcium 7.7 L AST Total Creatine Kinase Troponin T C-Reactive Protein 16.90 H NT-Pro-B Natriuret Pep Albumin Triglycerides LDL Cholesterol Direct HDL Cholesterol Urine WBC (Auto) 05/01/17 05/01/17 05/01/17 00:19 04:29 04:29 WBC 3.4 L RBC 3.55 L Hgb 10.8 L Hct 33.9 L MCV 95 H RDW 17.0 H Plt Count 130 L Lymph % (Auto) [place] % (Auto) Seg Neuts % (Manual) 12.0 L Lymphocytes % (Manual) 3.0 L Seg Neutrophils # Man 0.4 L Lymphocytes # (Manual) 0.1 L D-Dimer POC ABG pH POC ABG pO2 Sodium 154 H Chloride 115.1 H Carbon Dioxide 18 L BUN 102 H Creatinine 3.2 H Glucose 257 H POC Glucose 289 H Hemoglobin A1c Lactic Acid Calcium 7.8 L AST Total Creatine Kinase Troponin T C-Reactive Protein NT-Pro-B Natriuret Pep Albumin Triglycerides LDL Cholesterol Direct HDL Cholesterol Urine WBC (Auto) 05/01/17 05/01/17 05:09 09:44 WBC RBC Hgb Hct MCV RDW Plt Count Lymph % (Auto) [place] % (Auto) Seg Neuts % (Manual) Lymphocytes % (Manual) Seg Neutrophils # Man Lymphocytes # (Manual) D-Dimer POC ABG pH 7.269 L POC ABG pO2 121 H Sodium Chloride Carbon Dioxide BUN Creatinine Glucose POC Glucose 330 H Hemoglobin A1c Lactic Acid Calcium AST Total Creatine Kinase Troponin T C-Reactive Protein NT-Pro-B Natriuret Pep Albumin Triglycerides LDL Cholesterol Direct HDL Cholesterol Urine WBC (Auto) Chest x-ray: image reviewed Allied health notes reviewed: nursing
[2017-05-01] MEDS ORDERED: PANCREAZE DR 10,500 UNIT FEEDTUBE PRN ×2 (14:49→14:54)
[2017-05-01] MEDS ORDERED: SIMPLE SYRUP FEEDTUBE PRN ×4 (14:49→14:54)
[2017-05-01] MEDS ORDERED: SODIUM BICARBONATE FEEDTUBE PRN ×2 (14:49→14:54)
[2017-05-01] MEDS ORDERED: LACTATED RINGERS 1,000 ML IV SCH (16:00)
--- NOTE | 2017-05-01 16:26 | Progress Note ---
Assessment and Plan Assessment and plan: 77-year-old man with a history of diabetes, hyperlipidemia [facility] for hypot[facility] and fever. The patient is unable to give a history , is lethargic but arousable Acute respiratory failure with hypoxia continue BIPAP, pulmonary input appreciated Septic shock/Septic shock continue levophed, continue abx, obtain UA, UC Aspiration PNA, likely due to gram positive continue abx, case dw ID Acute renal failure/ATN nephrology consult continue IVF, obtain UA, UC and renal US Hypernatremia -continue hypotonic fluid Abnormal d-dimer obtain dopplers, likely elevated due to septic shock, obtain VQ scan when more stable Abnormal cardiac enzymes -demand ischaemia, due to Type 2 [place] -cardiology input appreciated, for MPI when clinically improved Metabolic acidosis likely due to sepsis and dehydration continue rx as above DM continue SSI, add levemir Hypernatremia continue hypotonic IVF The high probability of a clinically significant, sudden or life threatening deterioration of the [cv, pumonary, renal] system(s) required my full and direct attention, intervention and personal management. The aggregate critical care time was [44] minutes. This time is in addition to time spent performing reported procedures but includes the following: [] Data Review and interpretation [] Patient assessment and monitoring of vital signs [] Documentation [] Medication orders and management History Interval history: continues to be bipap dependent no fever, no vomiting, no seizures, still SOB Hospitalist Physical - Constitutional Vitals: Temp Pulse Resp BP Pulse Ox 97.3 F L 80 14 127/73 98 05/01/17 08:41 05/01/17 14:57 05/01/17 14:57 05/01/17 09:51 05/01/17 14:57 General appearance: Present: no acute distress - EENT Eyes: Present: PERRL ENT: hearing intact - Neck Neck: Present: supple - Respiratory Respiratory: bilateral: diminished - Cardiovascular Rhythm: regular Heart Sounds: Present: S1 & S2 - Extremities Extremities: no ischemia Peripheral Pulses: within normal limits - Abdominal General gastrointestinal: soft, non-tender - Integumentary Integumentary: Present: clear, warm - Psychiatric Psychiatric: cooperative, other (oriented to person and place only) - Neurologic Neurologic: moves all extremities Results - Labs CBC & Chem 7: 05/01/17 04:29 05/01/17 04:29 Labs: Laboratory Last Values WBC 3.4 K/mm3 (4.5-11.0) L 05/01/17 04:29 RBC 3.55 M/mm3 (3.65-5.03) L 05/01/17 04:29 Hgb 10.8 gm/dl (11.8-15.2) L 05/01/17 04:29 Hct 33.9 % (35.5-45.6) L 05/01/17 04:29 MCV 95 fl (84-94) H 05/01/17 04:29 MCH 30 pg (28-32) 05/01/17 04:29 MCHC 32 % (32-34) 05/01/17 04:29 RDW 17.0 % (13.2-15.2) H 05/01/17 04:29 Plt Count 130 K/mm3 (140-440) L 05/01/17 04:29 Lymph % (Auto) 46.1 % (13.4-35.0) H 04/30/17 01:16 [place] % (Auto) 11.4 % (0.0-7.3) H 04/30/17 01:16 Eos % (Auto) 0.0 % (0.0-4.3) 04/30/17 01:16 Baso % (Auto) 0.1 % (0.0-1.8) 04/30/17 01:16 Lymph # 2.7 K/mm3 (1.2-5.4) 04/30/17 01:16 [place] # 0.7 K/mm3 (0.0-0.8) 04/30/17 01:16 Eos # 0.0 K/mm3 (0.0-0.4) 04/30/17 01:16 Baso # 0.0 K/mm3 (0.0-0.1) 04/30/17 01:16 Add Manual Diff Complete 05/01/17 04:29 Total Counted 100 05/01/17 04:29 Seg Neutrophils % 42.4 % (40.0-70.0) 04/30/17 01:16 Seg Neuts % (Manual) 12.0 % (40.0-70.0) L 05/01/17 04:29 Band Neutrophils % 82.0 % 05/01/17 04:29 Lymphocytes % (Manual) 3.0 % (13.4-35.0) L 05/01/17 04:29 Reactive Lymphs % (Man) 0 % 05/01/17 04:29 Monocytes % (Manual) 3.0 % (0.0-7.3) 05/01/17 04:29 Eosinophils % (Manual) 0 % (0.0-4.3) 05/01/17 04:29 Basophils % (Manual) 0 % (0.0-1.8) 05/01/17 04:29 Metamyelocytes % 0 % 05/01/17 04:29 Myelocytes % 0 % 05/01/17 04:29 Promyelocytes % 0 % 05/01/17 04:29 Blast Cells % 0 % 05/01/17 04:29 Nucleated RBC % Not Reportable 05/01/17 04:29 Seg Neutrophils # 2.5 K/mm3 (1.8-7.7) 04/30/17 01:16 Seg Neutrophils # Man 0.4 K/mm3 (1.8-7.7) L 05/01/17 04:29 Band Neutrophils # 2.8 K/mm3 05/01/17 04:29 Lymphocytes # (Manual) 0.1 K/mm3 (1.2-5.4) L 05/01/17 04:29 Abs React Lymphs (Man) 0.0 K/mm3 05/01/17 04:29 Monocytes # (Manual) 0.1 K/mm3 (0.0-0.8) 05/01/17 04:29 Eosinophils # (Manual) 0.0 K/mm3 (0.0-0.4) 05/01/17 04:29 Basophils # (Manual) 0.0 K/mm3 (0.0-0.1) 05/01/17 04:29 Metamyelocytes # 0.0 K/mm3 05/01/17 04:29 Myelocytes # 0.0 K/mm3 05/01/17 04:29 Promyelocytes # 0.0 K/mm3 05/01/17 04:29 Blast Cells # 0.0 K/mm3 05/01/17 04:29 WBC Morphology Not Reportable 05/01/17 04:29 Hypersegmented Neuts Not Reportable 05/01/17 04:29 Hyposegmented Neuts Not Reportable 05/01/17 04:29 Hypogranular Neuts Not Reportable 05/01/17 04:29 Smudge Cells Not Reportable 05/01/17 04:29 Toxic Granulation Not Reportable 05/01/17 04:29 Toxic Vacuolation Not Reportable 05/01/17 04:29 Dohle Bodies Not Reportable 05/01/17 04:29 Pelger-Huet Anomaly Not Reportable 05/01/17 04:29 Hung Rods Not Reportable 05/01/17 04:29 Platelet Estimate Consistent w auto 05/01/17 04:29 Clumped Platelets Not Reportable 05/01/17 04:29 Plt Clumps, EDTA Not Reportable 05/01/17 04:29 Large Platelets Not Reportable 05/01/17 04:29 Giant Platelets Not Reportable 05/01/17 04:29 Platelet Satelliting Not Reportable 05/01/17 04:29 Plt Morphology Comment Not Reportable 05/01/17 04:29 RBC Morphology Not Reportable 05/01/17 04:29 Dimorphic RBCs Not Reportable 05/01/17 04:29 Polychromasia Not Reportable 05/01/17 04:29 Hypochromasia Not Reportable 05/01/17 04:29 Poikilocytosis Not Reportable 05/01/17 04:29 Anisocytosis 1+ 05/01/17 04:29 Microcytosis Not Reportable 05/01/17 04:29 Macrocytosis Not Reportable 05/01/17 04:29 Spherocytes Not Reportable 05/01/17 04:29 Pappenheimer Bodies Not Reportable 05/01/17 04:29 Sickle Cells Not Reportable 05/01/17 04:29 Target Cells Not Reportable 05/01/17 04:29 Tear Drop Cells Not Reportable 05/01/17 04:29 Ovalocytes 1+ 05/01/17 04:29 Helmet Cells Not Reportable 05/01/17 04:29 Man-[place] Bodies Not Reportable 05/01/17 04:29 [place] Rings Not Reportable 05/01/17 04:29 [place] Cells Not Reportable 05/01/17 04:29 Bite Cells Not Reportable 05/01/17 04:29 Crenated Cell Not Reportable 05/01/17 04:29 Elliptocytes Not Reportable 05/01/17 04:29 Acanthocytes (Spur) Not Reportable 05/01/17 04:29 Rouleaux Not Reportable 05/01/17 04:29 Hemoglobin C Crystals Not Reportable 05/01/17 04:29 Schistocytes Not Reportable 05/01/17 04:29 Malaria parasites Not Reportable 05/01/17 04:29 [place] Bodies Not Reportable 05/01/17 04:29 Hem Pathologist Commnt No 05/01/17 04:29 APTT 27.8 Sec. (24.2-36.6) 04/30/17 01:16 D-Dimer 1356.09 ng/mlDDU (0-234) H 04/30/17 01:16 POC ABG pH 7.284 (7.35-7.45) L 05/01/17 14:59 POC ABG pCO2 39.4 (35-45) 05/01/17 14:59 POC ABG pO2 68 (80-105) L 05/01/17 14:59 POC ABG HCO3 18.7 05/01/17 14:59 POC ABG Total CO2 20 05/01/17 14:59 POC ABG O2 Sat 91 05/01/17 14:59 POC ABG Base Excess -8 05/01/17 14:59 FiO2 30 % 05/01/17 14:59 Sodium 154 mmol/L (137-145) H 05/01/17 04:29 Potassium 4.2 mmol/L (3.6-5.0) 05/01/17 04:29 Chloride 115.1 mmol/L (98-107) H 05/01/17 04:29 Carbon Dioxide 18 mmol/L (22-30) L 05/01/17 04:29 Anion Gap 25 mmol/L 05/01/17 04:29 BUN 102 mg/dL (9-20) H 05/01/17 04:29 Creatinine 3.2 mg/dL (0.8-1.5) H 05/01/17 04:29 Estimated GFR 23 ml/min 05/01/17 04:29 BUN/Creatinine Ratio 32 % 05/01/17 04:29 Glucose 257 mg/dL (75-100) H 05/01/17 04:29 POC Glucose 240 (70-105) H 05/01/17 12:35 Hemoglobin A1c 7.5 % (4-6) H 04/30/17 20:24 Lactic Acid 1.80 mmol/L (0.7-2.0) 04/30/17 20:24 Calcium 7.8 mg/dL (8.4-10.2) L 05/01/17 04:29 Total Bilirubin 0.30 mg/dL (0.1-1.2) 04/30/17 01:16 AST 55 units/L (5-40) H 04/30/17 01:16 ALT 28 units/L (7-56) 04/30/17 01:16 Alkaline Phosphatase 86 units/L (35-129) 04/30/17 01:16 Total Creatine Kinase 693 units/L (55-170) H 04/30/17 12:11 CK-MB (CK-2) 2.5 ng/mL (0.0-4.0) 04/30/17 12:11 CK-MB (CK-2) Rel Index 0.3 (0-4) 04/30/17 12:11 Troponin T 0.299 ng/mL (0.00-0.029) H* 04/30/17 12:11 C-Reactive Protein 19.00 mg/dL (0.00-1.30) H 05/01/17 11:04 NT-Pro-B Natriuret Pep 24181 pg/mL (0-900) H 04/30/17 01:16 Total Protein 7.5 g/dL (6.3-8.2) 04/30/17 01:16 Albumin 3.6 g/dL (3.9-5) L 04/30/17 01:16 Albumin/Globulin Ratio 0.9 % 04/30/17 01:16 Triglycerides 260 mg/dL (2-149) H 04/30/17 01:16 Cholesterol 119 mg/dL (50-199) 04/30/17 01:16 LDL Cholesterol Direct 41 mg/dL (50-130) L 04/30/17 01:16 HDL Cholesterol 26 mg/dL (40-59) L 04/30/17 01:16 Cholesterol/HDL Ratio 4.57 % 04/30/17 01:16 Urine Color Yellow (Yellow) 04/30/17 18:17 Urine Turbidity Slightly-cloudy (Clear) 04/30/17 18:17 Urine pH 5.0 (5.0-7.0) 04/30/17 18:17 Ur Specific [place] 1.019 (1.003-1.030) 04/30/17 18:17 Urine Protein 100 mg/dl mg/dL (Negative) 04/30/17 18:17 Urine Glucose (UA) Neg mg/dL (Negative) 04/30/17 18:17 Urine Ketones Neg mg/dL (Negative) 04/30/17 18:17 Urine Blood Neg (Negative) 04/30/17 18:17 Urine Nitrite Neg (Negative) 04/30/17 18:17 Urine Bilirubin Neg (Negative) 04/30/17 18:17 Urine Urobilinogen 2.0 mg/dL (<2.0) 04/30/17 18:17 Ur Leukocyte Esterase Lg (Negative) 04/30/17 18:17 Urine WBC (Auto) 40.0 /HPF (0.0-6.0) H 04/30/17 18:17 Urine RBC (Auto) 10.0 /HPF (0.0-6.0) 04/30/17 18:17 U Epithel Cells (Auto) < 1.0 /HPF (0-13.0) 04/30/17 18:17 Hyaline Casts 1 /LPF 04/30/17 18:17 Granular Casts 4 /LPF 04/30/17 18:17 Urine Mucus Few /HPF 04/30/17 18:17 Random Vancomycin 8.5 ug/mL (0-40.0) 05/01/17 04:29 Blood Type O POSITIVE 04/30/17 01:18 Antibody Screen Negative 04/30/17:18
[2017-05-01] MEDS ORDERED: VANCOMYCIN/NS 1 GM/250 ML 1 GM/250 ML BAG IV ONE (21:00)
[2017-05-01] MEDS: LEVEMIR SUB-Q SCH (22:14)
[2017-05-02] MEDS: NOVOLOG SUB-Q SCH ×4 (00:34→18:40)
[2017-05-02] MEDS: DUONEB *Not for PRN Use IH SCH ×4 (01:56→22:28)
[2017-05-02] MEDS: NACL 0.45% 1000 ML 1,000 ML IV SCH ×3 (02:57→17:42)
[2017-05-02] MEDS: ASCORBIC ACID 1,500 MG in NACL 0.9% 50 ML IV SCH ×4 (02:58→21:43)
[2017-05-02] MEDS: VITAMIN B-1 200 MG in NACL 0.9% 50 ML IV SCH ×2 (03:39→15:20)
[2017-05-02] MEDS: ZOSYN/NS 2.25 GM/50ML 2.25 GM/50 ML BAG IV SCH ×2 (04:32→22:00)
[2017-05-02 04:42] LABS: Creatinine,Urine 66.4 mg/dL (0.1-20.0)
[2017-05-02 06:27] LABS: Hematocrit 30.9 % (35.5-45.6); Hemoglobin 10.1 gm/dl (11.8-15.2); Mean Corpuscular HGB Conc 33 % (32-34); Mean Corpuscular Hemoglobin 31 pg (28-32); Mean Corpuscular Volume 95 fl (84-94); Platelet Count 105 K/mm3 (140-440); Red Blood Count 3.27 M/mm3 (3.65-5.03); Red Cell Distribution Width 16.9 % (13.2-15.2)
[2017-05-02 06:56] LABS: Albumin 2.7 g/dL (3.9-5); Calcium 7.9 mg/dL (8.4-10.2); Magnesium 2.3 mg/dL (1.7-2.3)
--- NOTE | 2017-05-02 09:49 | Progress Note ---
Assessment and Plan Assessment: Paroxysmal atrial fibrillation-->currently sinus rhythm Elevated troponin Sepsis Hypertension Hyperlipidemia Hx. of CVA Plan: Echo showed EF 50-55%. Continue current management. Given elevated troponin, consider stress MPI when clinically stable. Will see PRN. The patient has been seen in conjunction with Dr. Neely who agrees with the assessment and plan of care. Subjective Date of service: 05/02/17 Principal diagnosis: atrial fibrillation, elevated troponin Interval history: Pt. resting in bed. Sinus rhythm on the monitor. Objective Last Vital Signs Temp 98.6 F 05/02/17 08:00 Pulse 80 05/02/17 09:51 Resp 15 05/02/17 10:00 BP 144/78 05/02/17 09:51 Pulse Ox 98 05/02/17 10:00 - Physical Examination General: No Apparent Distress HEENT: Positive: Normocephaly, Mucus Membranes Moist Neck: Positive: neck supple, trachea midline Cardiac: Positive: Reg Rate and Rhythm, S1/S2 Lungs: Positive: clear to auscultation Neuro: Positive: Grossly Intact Abdomen: Positive: Soft, Active Bowel Sounds. Negative: Tender Skin: Positive: Clear. Negative: Rash Extremities: Present: normal. Absent: edema - Labs and Meds Cardiac Enzymes 05/02/17 Range/Units 06:00 AST 30 (5-40) units/L CBC 05/02/17 Range/Units 06:00 WBC 4.6 (4.5-11.0) K/mm3 RBC 3.27 L (3.65-5.03) M/mm3 Hgb 10.1 L (11.8-15.2) gm/dl Hct 30.9 L (35.5-45.6) % Plt Count 105 L (140-440) K/mm3 Comprehensive Metabolic Panel 05/02/17 Range/Units 06:00 Sodium 151 H (137-145) mmol/L Potassium 3.6 (3.6-5.0) mmol/L Chloride 114.5 H (98-107) mmol/L Carbon Dioxide 20 L (22-30) mmol/L BUN 92 H (9-20) mg/dL Creatinine 2.6 H (0.8-1.5) mg/dL Glucose 87 (75-100) mg/dL Calcium 7.9 L (8.4-10.2) mg/dL AST 30 (5-40) units/L ALT 15 (7-56) units/L Alkaline Phosphatase 53 (35-129) units/L Total Protein 5.9 L D (6.3-8.2) g/dL Albumin 2.7 L (3.9-5) g/dL - Imaging and Cardiology Echo: report reviewed (04/2017: EF 50-55%) - Telemetry EKG Rhythm: Sinus Rhythm - Allied health notes Allied health notes reviewed: nursing
[2017-05-02] MEDS: LOVENOX SUB-Q SCH (09:51)
[2017-05-02] MEDS: PROTONIX IV SCH (09:51)
[2017-05-02] MEDS: FLOMAX PO SCH (09:52)
--- NOTE | 2017-05-02 09:57 | Progress Note ---
Assessment and Plan - Patient Problems (1) Septic shock Current Visit: Yes Status: Acute Plan to address problem: improved hemodynamics off vasopressor support. Continue antibiotics appropriately dosed for renal function. (2) Acute kidney failure with tubular necrosis Current Visit: Yes Status: Acute Plan to address problem: Acute tubular necrosis secondary to sepsis/hypotension. It is unclear if the patient has baseline chronic disease. With proteinuria on urinalysis, definitely concerned about baseline diabetic nephropathy. renal function improving with improved hemodynamic status, cont 1/2NS at 75ml/hr. Follow-up electrolytes and renal function. kidney ultrasound shows no evidence of hydronephrosis, however b/l echogenic kidneys seen c/w CKD. (3) Dehydration with hypernatremia Current Visit: Yes Status: Acute Plan to address problem: cont hypotonic IVF with 1/2 NS at 75ml/hr. (4) Type 2 diabetes mellitus, uncontrolled Current Visit: Yes Status: Chronic Qualifiers: Diabetes mellitus complication detail: with nephropathy Plan to address problem: Blood sugar management by primary attending (5) Metabolic acidosis Current Visit: Yes Status: Acute Plan to address problem: initially lactic acidosis, now hyperchloremic/uremic acidosis. cont IVF with 1/ 2 NS (6) Pancytopenia Current Visit: Yes Status: Acute Plan to address problem: Probably secondary to sepsis. Follow-up blood counts (7) Complicated urinary tract infection Current Visit: Yes Status: Acute Plan to address problem: Antibiotics per Infectious disease. Follow-up cultures Subjective Date of service: 05/02/17 Principal diagnosis: atrial fibrillation, elevated troponin Interval history: Pt awake, alert, in no acute respiratory distress, BP improved off vasopressor support. Objective - Vital Signs Vital signs: Vital Signs - 12hr 05/01/17 05/01/17 05/01/17 22:00 22:11 22:16 Temperature Pulse Rate 73 77 Pulse Rate [ 75 Anterior Bilateral Throughout] Respiratory 10 L 13 Rate Respiratory 16 Rate [Anterior Bilateral Throughout] Blood Pressure 139/70 139/70 O2 Sat by Pulse 97 97 Oximetry 05/01/17 05/01/17 05/01/17 22:21 22:22 22:27 Temperature Pulse Rate 78 99 H Pulse Rate [ 78 Anterior Bilateral Throughout] Respiratory 13 18 Rate Respiratory 13 Rate [Anterior Bilateral Throughout] Blood Pressure 139/70 139/70 O2 Sat by Pulse 99 99 99 Oximetry 05/01/17 05/01/17 05/01/17 22:30 22:40 22:51 Temperature Pulse Rate 79 76 79 Pulse Rate [ Anterior Bilateral Throughout] Respiratory 13 13 10 L Rate Respiratory Rate [Anterior Bilateral Throughout] Blood Pressure 142/76 152/81 142/76 O2 Sat by Pulse 98 96 97 Oximetry 05/01/17 05/01/17 05/01/17 23:00 23:11 23:21 Temperature Pulse Rate 78 78 83 Pulse Rate [ Anterior Bilateral Throughout] Respiratory 13 10 L 11 L Rate Respiratory Rate [Anterior Bilateral Throughout] Blood Pressure 151/76 151/76 151/76 O2 Sat by Pulse 97 97 97 Oximetry 05/01/17 05/01/17 05/01/17 23:30 23:41 23:51 Temperature Pulse Rate 76 79 74 Pulse Rate [ Anterior Bilateral Throughout] Respiratory 10 L 10 L 11 L Rate Respiratory Rate [Anterior Bilateral Throughout] Blood Pressure 145/74 145/74 145/74 O2 Sat by Pulse 97 97 97 Oximetry 05/01/17 05/02/17 05/02/17 23:56 00:00 00:11 Temperature 97.0 F L Pulse Rate 78 75 Pulse Rate [ Anterior Bilateral Throughout] Respiratory 11 L 9 L Rate Respiratory Rate [Anterior Bilateral Throughout] Blood Pressure 142/72 142/72 O2 Sat by Pulse 97 97 Oximetry 05/02/17 05/02/17 05/02/17 00:21 00:30 00:41 Temperature Pulse Rate 76 79 78 Pulse Rate [ Anterior Bilateral Throughout] Respiratory 13 11 L 10 L Rate Respiratory Rate [Anterior Bilateral Throughout] Blood Pressure 142/72 141/73 141/73 O2 Sat by Pulse 97 97 97 Oximetry 05/02/17 05/02/17 05/02/17 00:51 01:00 01:11 Temperature Pulse Rate 78 80 79 Pulse Rate [ Anterior Bilateral Throughout] Respiratory 11 L 10 L 10 L Rate Respiratory Rate [Anterior Bilateral Throughout] Blood Pressure 141/73 140/76 140/76 O2 Sat by Pulse 97 97 97 Oximetry 05/02/17 05/02/17 05/02/17 01:21 01:30 01:41 Temperature Pulse Rate 79 90 84 Pulse Rate [ Anterior Bilateral Throughout] Respiratory 10 L 11 L 12 Rate Respiratory Rate [Anterior Bilateral Throughout] Blood Pressure 140/76 139/81 139/81 O2 Sat by Pulse 98 97 97 Oximetry 05/02/17 05/02/17 05/02/17 01:45 01:51 01:57 Temperature Pulse Rate 74 Pulse Rate [ 88 92 H Anterior Bilateral Throughout] Respiratory 11 L Rate Respiratory 13 16 Rate [Anterior Bilateral Throughout] Blood Pressure 139/81 O2 Sat by Pulse 97 Oximetry 05/02/17 05/02/17 05/02/17 02:00 02:11 02:21 Temperature Pulse Rate 82 88 77 Pulse Rate [ Anterior Bilateral Throughout] Respiratory 12 15 11 L Rate Respiratory Rate [Anterior Bilateral Throughout] Blood Pressure 139/80 139/80 139/80 O2 Sat by Pulse 98 99 98 Oximetry 05/02/17 05/02/17 05/02/17 02:30 02:41 02:51 Temperature Pulse Rate 80 75 78 Pulse Rate [ Anterior Bilateral Throughout] Respiratory 13 11 L 11 L Rate Respiratory Rate [Anterior Bilateral Throughout] Blood Pressure 137/70 137/70 137/70 O2 Sat by Pulse 98 98 98 Oximetry 05/02/17 05/02/17 05/02/17 03:00 03:11 03:21 Temperature Pulse Rate 82 80 78 Pulse Rate [ Anterior Bilateral Throughout] Respiratory 15 15 15 Rate Respiratory Rate [Anterior Bilateral Throughout] Blood Pressure 127/83 127/83 127/83 O2 Sat by Pulse 99 96 96 Oximetry 05/02/17 05/02/17 05/02/17 03:30 03:41 03:51 Temperature Pulse Rate 77 77 76 Pulse Rate [ Anterior Bilateral Throughout] Respiratory 14 14 14 Rate Respiratory Rate [Anterior Bilateral Throughout] Blood Pressure 132/76 132/76 132/76 O2 Sat by Pulse 96 96 97 Oximetry 05/02/17 05/02/17 05/02/17 04:00 04:11 04:21 Temperature 96.4 F L Pulse Rate 79 82 78 Pulse Rate [ Anterior Bilateral Throughout] Respiratory 14 14 14 Rate Respiratory Rate [Anterior Bilateral Throughout] Blood Pressure 140/68 140/68 140/68 O2 Sat by Pulse 96 97 97 Oximetry 05/02/17 05/02/17 05/02/17 04:30 04:41 04:51 Temperature Pulse Rate 80 75 78 Pulse Rate [ Anterior Bilateral Throughout] Respiratory 13 15 13 Rate Respiratory Rate [Anterior Bilateral Throughout] Blood Pressure 142/71 142/71 142/71 O2 Sat by Pulse 97 97 97 Oximetry 05/02/17 05/02/17 05/02/17 05:00 05:11 07:26 Temperature Pulse Rate 87 78 Pulse Rate [ 80 Anterior Bilateral Throughout] Respiratory 14 14 Rate Respiratory 14 Rate [Anterior Bilateral Throughout] Blood Pressure 144/80 144/80 O2 Sat by Pulse 98 Oximetry 05/02/17 05/02/17 05/02/17 07:27 07:41 08:00 Temperature 98.6 F Pulse Rate Pulse Rate [ 88 Anterior Bilateral Throughout] Respiratory Rate Respiratory 16 Rate [Anterior Bilateral Throughout] Blood Pressure O2 Sat by Pulse 98 Oximetry - General Appearance General appearance: appears stated age, frail EENT: ATNC, PERRL, mucous membranes dry Neck: no JVD Respiratory: Present: Decreased Breath Sounds Cardiology: regular, S1S2 Gastrointestinal: normoactive bowel sounds Integumentary: no rash, other (no edema ) Neurologic: no focal deficit, alert and oriented x3, strength 5/5, CN 3-12 intact Psychiatric: mood/affect appropriate, cooperative - Lab 05/02/17 06:00 05/02/17 06:00 Most recent lab results Calcium 7.9 mg/dL (8.4-10.2) L 05/02/17 06:00 Phosphorus 3.70 mg/dL (2.5-4.5) 05/02/17 06:00 Magnesium 2.30 mg/dL (1.7-2.3) 05/02/17 06:00 Urine Creatinine 66.4 mg/dL (0.1-20.0) H 05/02/17 03:50 Urine Sodium 18 mmol/L 05/02/17 03:50 Urine Total Protein 292 mg/dL (5-11.8) H 05/02/17 03:50
[2017-05-02 10:28] LABS: Anisocytosis 1+; Basophils % (Manual) 0 % (0.0-1.8); Eosinophils % (Manual) 0 % (0.0-4.3); Monocytes % (Manual) 0 % (0.0-7.3); Ovalocytes Few; Total Cells Counted 100
--- NOTE | 2017-05-02 11:16 | Progress Note ---
Assessment and Plan Assessment: 1) Sepsis with initial septic shock: better. Etiology most likely UTI +/- pneumonia. 2) Complicated UTI with a SP cath: SP cath was exchanged in the ED. Urine cx 10 -100K mixed bacteria 3) Presumed bilateral pneumonia: influenza negative 4) AMIRA: better 5) Acute resp failure - better 6) Pancytopenia ? from sepsis - stable Plan: -continue zosyn -stop vanco - no evidence of MRSA -please remove IJ TLC if not longer needed Thank you Dr Gayle for your consultation, will follow up with you. Ying Devi MD Infectious Diseases Specialist [facility], [place] [facility] ([facility]) M [phone] O [phone] Subjective Date of service: 05/02/17 Principal diagnosis: atrial fibrillation, elevated troponin Interval history: Feels better, now on NC O2 3 L. No fever. Microbiology: Blood cultures: 04/30 ngtd Urine cultures: not sent Current Antimicrobials: Zosyn 04/30 Vancomycin 04/30 Previous Antimicrobials: Objective - Exam Narrative Exam: General appearance: somonlent but arousable in NAD on BIPAP Eyes: anicteric sclerae, moist conjunctivae; no lid-lag; PERRLA HENT: Atraumatic; oropharynx limited with BIPAP mask Neck: Trachea midline; supple, no thyromegaly or lymphadenopathy Lungs: tammy loud rhonchi CV: RRR Abdomen: Soft, non-tender; +SP cath clean Extremities: mild peripheral edema, no extremity lymphadenopathy Skin: Normal temperature, turgor and texture; no rash, ulcers or subcutaneous nodules Psych: Appropriate affect, alert and oriented to person, place and time. Neuro: alert and oriented x 3. Moving all extermities Lines: left IJ - Constitutional Vitals: Vital Signs Temp Pulse Resp BP Pulse Ox 98.6 F 80 15 144/78 98 05/02/17 08:00 05/02/17 09:51 05/02/17 10:00 05/02/17 09:51 05/02/17 10:00 Temperature -Last 24 Hours Temperature 98.6 F Temperature 96.4 F Temperature 97.0 F Temperature 97.9 F - Labs CBC & Chem 7: 05/02/17 06:00 05/02/17 06:00 Labs: Abnormal lab results 05/01/17 05/01/17 05/01/17 Range/Units 11:04 12:35 14:59 RBC (3.65-5.03) M/mm3 Hgb (11.8-15.2) gm/dl Hct (35.5-45.6) % MCV (84-94) fl RDW (13.2-15.2) % Plt Count (140-440) K/mm3 Seg Neuts % (Manual) (40.0-70.0) % Lymphocytes % (Manual) (13.4-35.0) % Lymphocytes # (Manual) (1.2-5.4) K/mm3 POC ABG pH 7.284 L (7.35-7.45) POC ABG pO2 68 L (80-105) Sodium (137-145) mmol/L Chloride (98-107) mmol/L Carbon Dioxide (22-30) mmol/L BUN (9-20) mg/dL Creatinine (0.8-1.5) mg/dL POC Glucose 240 H (70-105) Calcium (8.4-10.2) mg/dL C-Reactive Protein 19.00 H (0.00-1.30) mg/dL Total Protein (6.3-8.2) g/dL Albumin (3.9-5) g/dL Urine Creatinine (0.1-20.0) mg/dL Urine Total Protein (5-11.8) mg/dL 05/01/17 05/02/17 05/02/17 Range/Units 22:15 03:50 05:32 RBC (3.65-5.03) M/mm3 Hgb (11.8-15.2) gm/dl Hct (35.5-45.6) % MCV (84-94) fl RDW (13.2-15.2) % Plt Count (140-440) K/mm3 Seg Neuts % (Manual) (40.0-70.0) % Lymphocytes % (Manual) (13.4-35.0) % Lymphocytes # (Manual) (1.2-5.4) K/mm3 POC ABG pH (7.35-7.45) POC ABG pO2 (80-105) Sodium (137-145) mmol/L Chloride (98-107) mmol/L Carbon Dioxide (22-30) mmol/L BUN (9-20) mg/dL Creatinine (0.8-1.5) mg/dL POC Glucose 219 H 109 H (70-105) Calcium (8.4-10.2) mg/dL C-Reactive Protein (0.00-1.30) mg/dL Total Protein (6.3-8.2) g/dL Albumin (3.9-5) g/dL Urine Creatinine 66.4 H (0.1-20.0) mg/dL Urine Total Protein 292 H (5-11.8) mg/dL 05/02/17 05/02/17 Range/Units 06:00 06:00 RBC 3.27 L (3.65-5.03) M/mm3 Hgb 10.1 L (11.8-15.2) gm/dl Hct 30.9 L (35.5-45.6) % MCV 95 H (84-94) fl RDW 16.9 H (13.2-15.2) % Plt Count 105 L (140-440) K/mm3 Seg Neuts % (Manual) 72.0 H (40.0-70.0) % Lymphocytes % (Manual) 6.0 L (13.4-35.0) % Lymphocytes # (Manual) 0.3 L (1.2-5.4) K/mm3 POC ABG pH (7.35-7.45) POC ABG pO2 (80-105) Sodium 151 H (137-145) mmol/L Chloride 114.5 H (98-107) mmol/L Carbon Dioxide 20 L (22-30) mmol/L BUN 92 H (9-20) mg/dL Creatinine 2.6 H (0.8-1.5) mg/dL POC Glucose (70-105) Calcium 7.9 L (8.4-10.2) mg/dL C-Reactive Protein (0.00-1.30) mg/dL Total Protein 5.9 L D (6.3-8.2) g/dL Albumin 2.7 L (3.9-5) g/dL Urine Creatinine (0.1-20.0) mg/dL Urine Total Protein (5-11.8) mg/dL
[2017-05-02] MEDS ORDERED: ZOSYN/NS 2.25 GM/50ML 2.25 GM/50 ML BAG IV SCH ×2 (12:00)
--- NOTE | 2017-05-02 12:54 | Progress Note ---
Assessment and Plan Acute Hypoxemic Respiratory Failure Sepsis Syndrome Atrial Fib with RVR AMIRA (? on CKD) Elevated D-dimer NSTEMI Hyperlipidemia Hypernatremia H/O CVA Adult FTT - continue supplemental oxygen to keep Sats > 90% - continue aspiration precautions - NT suction now and prn thereafter - ACS protocol per cardiology - continue empiric AB's and follow C&S, also clinically - continue BIPAP scheduled qhs with prn daytime use - place NGT for enteral nutrition - ST evaluation - continue GI & VTE prophylaxis - A-fib rate control per cardiology recs - gentle hydration re: Azotemia - nephrology on case - follow I's & O's and electrolytes - resume vasopressors if MAP < 60mmHg - flu & pneumovax addressed per protocol ....re-evaluate in am & prn ...36' Subjective Date of service: 05/02/17 Principal diagnosis: Atrial Fib with RVR; Acute Hypoxemic Resp Failure: Sepsis Syndrome Interval history: Patient is seen today for: Atrial Fib with RVR; Acute Hypoxemic Resp Failure: Sepsis Syndrome Seen and examined at bedside; 24hour events reviewed; nursing and respiratory care staff consulted; no adverse overnight events reported to me; Objective Vital Signs - 12hr 05/02/17 05/02/17 05/02/17 00:51 01:00 01:11 Temperature Pulse Rate 78 80 79 Pulse Rate [ Anterior Bilateral Throughout] Respiratory 11 L 10 L 10 L Rate Respiratory Rate [Anterior Bilateral Throughout] Blood Pressure 141/73 140/76 140/76 O2 Sat by Pulse 97 97 97 Oximetry 05/02/17 05/02/17 05/02/17 01:21 01:30 01:41 Temperature Pulse Rate 79 90 84 Pulse Rate [ Anterior Bilateral Throughout] Respiratory 10 L 11 L 12 Rate Respiratory Rate [Anterior Bilateral Throughout] Blood Pressure 140/76 139/81 139/81 O2 Sat by Pulse 98 97 97 Oximetry 05/02/17 05/02/17 05/02/17 01:45 01:51 01:57 Temperature Pulse Rate 74 Pulse Rate [ 88 92 H Anterior Bilateral Throughout] Respiratory 11 L Rate Respiratory 13 16 Rate [Anterior Bilateral Throughout] Blood Pressure 139/81 O2 Sat by Pulse 97 Oximetry 05/02/17 05/02/17 05/02/17 02:00 02:11 02:21 Temperature Pulse Rate 82 88 77 Pulse Rate [ Anterior Bilateral Throughout] Respiratory 12 15 11 L Rate Respiratory Rate [Anterior Bilateral Throughout] Blood Pressure 139/80 139/80 139/80 O2 Sat by Pulse 98 99 98 Oximetry 05/02/17 05/02/17 05/02/17 02:30 02:41 02:51 Temperature Pulse Rate 80 75 78 Pulse Rate [ Anterior Bilateral Throughout] Respiratory 13 11 L 11 L Rate Respiratory Rate [Anterior Bilateral Throughout] Blood Pressure 137/70 137/70 137/70 O2 Sat by Pulse 98 98 98 Oximetry 05/02/17 05/02/17 05/02/17 03:00 03:11 03:21 Temperature Pulse Rate 82 80 78 Pulse Rate [ Anterior Bilateral Throughout] Respiratory 15 15 15 Rate Respiratory Rate [Anterior Bilateral Throughout] Blood Pressure 127/83 127/83 127/83 O2 Sat by Pulse 99 96 96 Oximetry 05/02/17 05/02/17 05/02/17 03:30 03:41 03:51 Temperature Pulse Rate 77 77 76 Pulse Rate [ Anterior Bilateral Throughout] Respiratory 14 14 14 Rate Respiratory Rate [Anterior Bilateral Throughout] Blood Pressure 132/76 132/76 132/76 O2 Sat by Pulse 96 96 97 Oximetry 05/02/17 05/02/17 05/02/17 04:00 04:11 04:21 Temperature 96.4 F L Pulse Rate 79 82 78 Pulse Rate [ Anterior Bilateral Throughout] Respiratory 14 14 14 Rate Respiratory Rate [Anterior Bilateral Throughout] Blood Pressure 140/68 140/68 140/68 O2 Sat by Pulse 96 97 97 Oximetry 05/02/17 05/02/17 05/02/17 04:30 04:41 04:51 Temperature Pulse Rate 80 75 78 Pulse Rate [ Anterior Bilateral Throughout] Respiratory 13 15 13 Rate Respiratory Rate [Anterior Bilateral Throughout] Blood Pressure 142/71 142/71 142/71 O2 Sat by Pulse 97 97 97 Oximetry 05/02/17 05/02/17 05/02/17 05:00 05:11 05:21 Temperature Pulse Rate 87 78 81 Pulse Rate [ Anterior Bilateral Throughout] Respiratory 14 14 14 Rate Respiratory Rate [Anterior Bilateral Throughout] Blood Pressure 144/80 144/80 144/80 O2 Sat by Pulse 98 97 Oximetry 05/02/17 05/02/17 05/02/17 05:30 05:41 05:51 Temperature Pulse Rate 77 77 80 Pulse Rate [ Anterior Bilateral Throughout] Respiratory 15 14 14 Rate Respiratory Rate [Anterior Bilateral Throughout] Blood Pressure 149/76 149/76 149/76 O2 Sat by Pulse 98 98 98 Oximetry 05/02/17 05/02/17 05/02/17 06:00 06:11 06:21 Temperature Pulse Rate 79 76 77 Pulse Rate [ Anterior Bilateral Throughout] Respiratory 12 14 14 Rate Respiratory Rate [Anterior Bilateral Throughout] Blood Pressure 140/71 149/76 149/76 O2 Sat by Pulse 97 98 97 Oximetry 05/02/17 05/02/17 05/02/17 06:30 06:40 06:51 Temperature Pulse Rate 78 78 77 Pulse Rate [ Anterior Bilateral Throughout] Respiratory 13 14 14 Rate Respiratory Rate [Anterior Bilateral Throughout] Blood Pressure 143/67 149/76 143/67 O2 Sat by Pulse 97 97 97 Oximetry 05/02/17 05/02/17 05/02/17 07:00 07:11 07:21 Temperature Pulse Rate 78 76 78 Pulse Rate [ Anterior Bilateral Throughout] Respiratory 14 14 14 Rate Respiratory Rate [Anterior Bilateral Throughout] Blood Pressure 143/74 143/67 143/67 O2 Sat by Pulse 97 97 97 Oximetry 05/02/17 05/02/17 05/02/17 07:26 07:27 07:30 Temperature Pulse Rate 76 Pulse Rate [ 80 Anterior Bilateral Throughout] Respiratory 13 Rate Respiratory 14 Rate [Anterior Bilateral Throughout] Blood Pressure 143/74 O2 Sat by Pulse 98 100 Oximetry 05/02/17 05/02/17 05/02/17 07:41 07:51 08:00 Temperature 98.6 F Pulse Rate 84 90 86 Pulse Rate [ 88 Anterior Bilateral Throughout] Respiratory 17 17 17 Rate Respiratory 16 Rate [Anterior Bilateral Throughout] Blood Pressure 143/74 143/74 151/67 O2 Sat by Pulse 98 97 96 Oximetry 05/02/17 05/02/17 05/02/17 08:11 08:21 08:30 Temperature Pulse Rate 91 H 86 87 Pulse Rate [ Anterior Bilateral Throughout] Respiratory 16 16 17 Rate Respiratory Rate [Anterior Bilateral Throughout] Blood Pressure 151/67 151/67 144/71 O2 Sat by Pulse 97 96 96 Oximetry 05/02/17 05/02/17 05/02/17 08:41 08:51 09:00 Temperature Pulse Rate 92 H 84 86 Pulse Rate [ Anterior Bilateral Throughout] Respiratory 18 17 16 Rate Respiratory Rate [Anterior Bilateral Throughout] Blood Pressure 144/71 144/71 147/70 O2 Sat by Pulse 97 97 96 Oximetry 05/02/17 05/02/17 05/02/17 09:11 09:21 09:30 Temperature Pulse Rate 89 83 95 H Pulse Rate [ Anterior Bilateral Throughout] Respiratory 16 15 14 Rate Respiratory Rate [Anterior Bilateral Throughout] Blood Pressure 147/70 147/70 144/78 O2 Sat by Pulse 97 97 99 Oximetry 05/02/17 05/02/17 05/02/17 09:41 09:51 10:00 Temperature Pulse Rate 92 H 80 82 Pulse Rate [ Anterior Bilateral Throughout] Respiratory 19 14 15 Rate Respiratory Rate [Anterior Bilateral Throughout] Blood Pressure 144/78 144/78 146/72 O2 Sat by Pulse 97 98 98 Oximetry 05/02/17 05/02/17 05/02/17 10:11 10:21 10:30 Temperature Pulse Rate 81 79 84 Pulse Rate [ Anterior Bilateral Throughout] Respiratory 15 14 16 Rate Respiratory Rate [Anterior Bilateral Throughout] Blood Pressure 146/72 146/72 146/73 O2 Sat by Pulse 98 99 99 Oximetry 05/02/17 05/02/17 05/02/17 10:41 10:51 11:00 Temperature Pulse Rate 77 82 78 Pulse Rate [ Anterior Bilateral Throughout] Respiratory 15 17 15 Rate Respiratory Rate [Anterior Bilateral Throughout] Blood Pressure 146/73 146/73 158/77 O2 Sat by Pulse 99 99 99 Oximetry 05/02/17 05/02/17 05/02/17 11:11 11:21 11:30 Temperature Pulse Rate 82 82 95 H Pulse Rate [ Anterior Bilateral Throughout] Respiratory 16 23 20 Rate Respiratory Rate [Anterior Bilateral Throughout] Blood Pressure 146/73 146/73 155/84 O2 Sat by Pulse 99 97 98 Oximetry 05/02/17 11:34 Temperature Pulse Rate 90 Pulse Rate [ Anterior Bilateral Throughout] Respiratory Rate Respiratory Rate [Anterior Bilateral Throughout] Blood Pressure O2 Sat by Pulse Oximetry CBC and BMP: 05/02/17 06:00 05/02/17 06:00 ABG, PT/INR, D-dimer: ABG POC ABG pH 7.284 (7.35-7.45) L 05/01/17 14:59 POC ABG pCO2 39.4 (35-45) 05/01/17 14:59 POC ABG pO2 68 (80-105) L 05/01/17 14:59 POC ABG HCO3 18.7 05/01/17 14:59 POC ABG Total CO2 20 05/01/17 14:59 POC ABG O2 Sat 91 05/01/17 14:59 PT/INR, D-dimer D-Dimer 1356.09 ng/mlDDU (0-234) H 04/30/17 01:16 Abnormal lab findings: Abnormal Labs 04/30/17 04/30/17 04/30/17 01:16 01:16 01:16 WBC RBC Hgb Hct MCV 95 H RDW 16.6 H Plt Count Lymph % (Auto) 46.1 H [place] % (Auto) 11.4 H Seg Neuts % (Manual) Lymphocytes % (Manual) Seg Neutrophils # Man Lymphocytes # (Manual) D-Dimer 1356.09 H POC ABG pH POC ABG pO2 Sodium 152 H Chloride 107.4 H Carbon Dioxide BUN 98 H Creatinine 3.6 H Glucose 224 H POC Glucose Hemoglobin A1c Lactic Acid Calcium AST 55 H Total Creatine Kinase 759 H Troponin T 0.468 H* C-Reactive Protein NT-Pro-B Natriuret Pep Total Protein Albumin 3.6 L Triglycerides 260 H LDL Cholesterol Direct 41 L HDL Cholesterol 26 L Urine WBC (Auto) Urine Creatinine Urine Total Protein 04/30/17 04/30/17 04/30/17 01:16 01:16 01:16 WBC RBC Hgb Hct MCV RDW Plt Count Lymph % (Auto) [place] % (Auto) Seg Neuts % (Manual) Lymphocytes % (Manual) Seg Neutrophils # Man Lymphocytes # (Manual) D-Dimer POC ABG pH POC ABG pO2 Sodium Chloride Carbon Dioxide BUN Creatinine Glucose POC Glucose Hemoglobin A1c Lactic Acid 2.90 H* Calcium AST Total Creatine Kinase 784 H Troponin T C-Reactive Protein NT-Pro-B Natriuret Pep 74531 H Total Protein Albumin Triglycerides LDL Cholesterol Direct HDL Cholesterol Urine WBC (Auto) Urine Creatinine Urine Total Protein 04/30/17 04/30/17 04/30/17 03:27 05:56 09:43 WBC RBC Hgb Hct MCV RDW Plt Count Lymph % (Auto) [place] % (Auto) Seg Neuts % (Manual) Lymphocytes % (Manual) Seg Neutrophils # Man Lymphocytes # (Manual) D-Dimer POC ABG pH 7.303 L 7.283 L POC ABG pO2 68 L Sodium Chloride Carbon Dioxide BUN Creatinine Glucose POC Glucose Hemoglobin A1c Lactic Acid Calcium AST Total Creatine Kinase 682 H Troponin T 0.331 H* D C-Reactive Protein NT-Pro-B Natriuret Pep Total Protein Albumin Triglycerides LDL Cholesterol Direct HDL Cholesterol Urine WBC (Auto) Urine Creatinine Urine Total Protein 04/30/17 04/30/17 04/30/17 09:43 12:11 12:11 WBC RBC Hgb Hct MCV RDW Plt Count Lymph % (Auto) [place] % (Auto) Seg Neuts % (Manual) Lymphocytes % (Manual) Seg Neutrophils # Man Lymphocytes # (Manual) D-Dimer POC ABG pH POC ABG pO2 Sodium 152 H 155 H Chloride 112.1 H 114.3 H Carbon Dioxide BUN 100 H 101 H Creatinine 3.3 H 3.4 H Glucose 267 H 262 H POC Glucose Hemoglobin A1c Lactic Acid Calcium 7.8 L 7.7 L AST Total Creatine Kinase 693 H Troponin T 0.299 H* C-Reactive Protein NT-Pro-B Natriuret Pep Total Protein Albumin Triglycerides LDL Cholesterol Direct HDL Cholesterol Urine WBC (Auto) Urine Creatinine Urine Total Protein 04/30/17 04/30/17 04/30/17 15:24 17:58 18:17 WBC RBC Hgb Hct MCV RDW Plt Count Lymph % (Auto) [place] % (Auto) Seg Neuts % (Manual) Lymphocytes % (Manual) Seg Neutrophils # Man Lymphocytes # (Manual) D-Dimer POC ABG pH 7.325 L POC ABG pO2 Sodium Chloride Carbon Dioxide BUN Creatinine Glucose POC Glucose 255 H Hemoglobin A1c Lactic Acid Calcium AST Total Creatine Kinase Troponin T C-Reactive Protein NT-Pro-B Natriuret Pep Total Protein Albumin Triglycerides LDL Cholesterol Direct HDL Cholesterol Urine WBC (Auto) 40.0 H Urine Creatinine Urine Total Protein 04/30/17 04/30/17 04/30/17 20:24 20:24 20:24 WBC RBC Hgb Hct MCV RDW Plt Count Lymph % (Auto) [place] % (Auto) Seg Neuts % (Manual) Lymphocytes % (Manual) Seg Neutrophils # Man Lymphocytes # (Manual) D-Dimer POC ABG pH POC ABG pO2 Sodium 152 H Chloride 113.4 H Carbon Dioxide 18 L BUN 103 H Creatinine 3.1 H Glucose 228 H POC Glucose Hemoglobin A1c 7.5 H Lactic Acid Calcium 7.7 L AST Total Creatine Kinase Troponin T C-Reactive Protein 16.90 H NT-Pro-B Natriuret Pep Total Protein Albumin Triglycerides LDL Cholesterol Direct HDL Cholesterol Urine WBC (Auto) Urine Creatinine Urine Total Protein 05/01/17 05/01/17 05/01/17 00:19 04:29 04:29 WBC 3.4 L RBC 3.55 L Hgb 10.8 L Hct 33.9 L MCV 95 H RDW 17.0 H Plt Count 130 L Lymph % (Auto) [place] % (Auto) Seg Neuts % (Manual) 12.0 L Lymphocytes % (Manual) 3.0 L Seg Neutrophils # Man 0.4 L Lymphocytes # (Manual) 0.1 L D-Dimer POC ABG pH POC ABG pO2 Sodium 154 H Chloride 115.1 H Carbon Dioxide 18 L BUN 102 H Creatinine 3.2 H Glucose 257 H POC Glucose 289 H Hemoglobin A1c Lactic Acid Calcium 7.8 L AST Total Creatine Kinase Troponin T C-Reactive Protein NT-Pro-B Natriuret Pep Total Protein Albumin Triglycerides LDL Cholesterol Direct HDL Cholesterol Urine WBC (Auto) Urine Creatinine Urine Total Protein 05/01/17 05/01/17 05/01/17 05:09 09:44 11:04 WBC RBC Hgb Hct MCV RDW Plt Count Lymph % (Auto) [place] % (Auto) Seg Neuts % (Manual) Lymphocytes % (Manual) Seg Neutrophils # Man Lymphocytes # (Manual) D-Dimer POC ABG pH 7.269 L POC ABG pO2 121 H Sodium Chloride Carbon Dioxide BUN Creatinine Glucose POC Glucose 330 H Hemoglobin A1c Lactic Acid Calcium AST Total Creatine Kinase Troponin T C-Reactive Protein 19.00 H NT-Pro-B Natriuret Pep Total Protein Albumin Triglycerides LDL Cholesterol Direct HDL Cholesterol Urine WBC (Auto) Urine Creatinine Urine Total Protein 05/01/17 05/01/17 05/01/17 12:35 14:59 22:15 WBC RBC Hgb Hct MCV RDW Plt Count Lymph % (Auto) [place] % (Auto) Seg Neuts % (Manual) Lymphocytes % (Manual) Seg Neutrophils # Man Lymphocytes # (Manual) D-Dimer POC ABG pH 7.284 L POC ABG pO2 68 L Sodium Chloride Carbon Dioxide BUN Creatinine Glucose POC Glucose 240 H 219 H Hemoglobin A1c Lactic Acid Calcium AST Total Creatine Kinase Troponin T C-Reactive Protein NT-Pro-B Natriuret Pep Total Protein Albumin Triglycerides LDL Cholesterol Direct HDL Cholesterol Urine WBC (Auto) Urine Creatinine Urine Total Protein 05/02/17 05/02/17 05/02/17 03:50 05:32 06:00 WBC RBC 3.27 L Hgb 10.1 L Hct 30.9 L MCV 95 H RDW 16.9 H Plt Count 105 L Lymph % (Auto) [place] % (Auto) Seg Neuts % (Manual) 72.0 H Lymphocytes % (Manual) 6.0 L Seg Neutrophils # Man Lymphocytes # (Manual) 0.3 L D-Dimer POC ABG pH POC ABG pO2 Sodium Chloride Carbon Dioxide BUN Creatinine Glucose POC Glucose 109 H Hemoglobin A1c Lactic Acid Calcium AST Total Creatine Kinase Troponin T C-Reactive Protein NT-Pro-B Natriuret Pep Total Protein Albumin Triglycerides LDL Cholesterol Direct HDL Cholesterol Urine WBC (Auto) Urine Creatinine 66.4 H Urine Total Protein 292 H 05/02/17 06:00 WBC RBC Hgb Hct MCV RDW Plt Count Lymph % (Auto) [place] % (Auto) Seg Neuts % (Manual) Lymphocytes % (Manual) Seg Neutrophils # Man Lymphocytes # (Manual) D-Dimer POC ABG pH POC ABG pO2 Sodium 151 H Chloride 114.5 H Carbon Dioxide 20 L BUN 92 H Creatinine 2.6 H Glucose POC Glucose Hemoglobin A1c Lactic Acid Calcium 7.9 L AST Total Creatine Kinase Troponin T C-Reactive Protein NT-Pro-B Natriuret Pep Total Protein 5.9 L D Albumin 2.7 L Triglycerides LDL Cholesterol Direct HDL Cholesterol Urine WBC (Auto) Urine Creatinine Urine Total Protein Allied health notes reviewed: nursing
--- NOTE | 2017-05-02 13:50 | Vascular Lab Report ---
LOWER EXTREMITY VENOUS DUPLEX: REASON FOR EXAM: Unresponsive. Hypoxemic. Respiratory failure. Suspicion for pulmonary embolism. COMMENTS ON THE RIGHT: All veins visualized are freely compressible without evidence of internal echogenicity. Flow is spontaneous and phasic throughout. Atretic greater saphenous vein. COMMENTS ON THE LEFT: All veins visualized are freely compressible without evidence of internal echogenicity. Flow is spontaneous and phasic throughout. Atretic greater saphenous vein. IMPRESSION: No evidence of acute or chronic deep venous thrombosis in either lower extremity.
[2017-05-02] MEDS ORDERED: NACL 0.9% 500 ML 500 ML ONE ×2 (14:42→14:47)
[2017-05-02] MEDS ORDERED: NACL 0.9% 500 ML 500 ML IV ONE (14:49)
--- NOTE | 2017-05-02 16:07 | Event Note ---
Date: 05/02/17 Notified by Kristin Swain RN that patient was in a wide complex tachycardia with HR 150s and hypotensive. Came to bedside with Dr. Neely to see and evaluate patient. It appears the patient is in atrial fibrillation with underlying LBBB. Agree with IV amiodarone and pressor support as needed to maintain MAP > 65. Optimize electrolytes. Will continue to follow. Erin Atkinson NP/Dr. Neely
[2017-05-02] MEDS ORDERED: CORDARONE 150 MG in D5W 97 ML IV ONE (16:30)
[2017-05-02] MEDS: CORDARONE 900 MG in D5W 482 ML IV SCH (16:36)
[2017-05-02] MEDS ORDERED: Vasostrict 20 UNIT in NACL 0.9% 100 ML IV SCH (17:00)
[2017-05-02] MEDS ORDERED: KCL 20MEQ/100ML 20 MEQ/100 ML BAG IV ONE (17:00)
--- NOTE | 2017-05-02 18:59 | Progress Note ---
Assessment and Plan Assessment and plan: 77-year-old man with a history of diabetes, hyperlipidemia [facility] and [facility]. The patient is unable to give a history , is lethargic but arousable Acute respiratory failure with hypoxia Has now been weaned to oxygen by nasal cannula, improving Septic shock Continue pressor supports Aspiration PNA, likely due to gram positive continue abx, case dw ID Acute renal failure/ATN nephrology consult continue IVF, obtain UA, UC and renal US Hypernatremia Free water by NG tube Abnormal d-dimer Dopplers are negative for DVT, likely elevated due to septic shock, obtain VQ scan when more stable Abnormal cardiac enzymes -demand ischaemia, due to Type 2 [place] -cardiology input appreciated, for MPI when clinically improved Rapid atrial fibrillation Amiodarone drip has been ordered, case discussed with cardiology Metabolic acidosis likely due to sepsis and dehydration continue rx as above DM continue SSI, add levemir The high probability of a clinically significant, sudden or life threatening deterioration of the [cv, pumonary, renal] system(s) required my full and direct attention, intervention and personal management. The aggregate critical care time was [44] minutes. This time is in addition to time spent performing reported procedures but includes the following: [] Data Review and interpretation [] Patient assessment and monitoring of vital signs [] Documentation [] Medication orders and management History Interval history: Is now off BiPAP, oriented to person and place, states that shortness of breath is improved no fever, no vomiting, no seizures, His nurse reports that he's been tachycardic and has had low blood pressure Hospitalist Physical - Physical exam Narrative exam: General.: Appears well, no distress, nontoxic HEENT: Moist mucous membranes, extraocular muscles intact, no lymphadenopathy Neck: supple Cardiac: S1-S2 heard Lungs: Diminished breath sounds, no wheezing Abdomen: soft , nontender, nondistended, bowel sounds positive Extremities: no edema clubbing or cyanosis Skin: no rash or lesions Neurologic: Oriented to person and place Psych: Calm and cooperative - Constitutional Vitals: Temp Pulse Resp BP Pulse Ox 97.5 F L 108 H 21 133/73 100 05/02/17 16:00 05/02/17 18:15 05/02/17 18:15 05/02/17 18:15 05/02/17 18:15 General appearance: Present: no acute distress Results - Labs CBC & Chem 7: 05/02/17 06:00 05/02/17 06:00 Labs: Laboratory Last Values WBC 4.6 K/mm3 (4.5-11.0) 05/02/17 06:00 RBC 3.27 M/mm3 (3.65-5.03) L 05/02/17 06:00 Hgb 10.1 gm/dl (11.8-15.2) L 05/02/17 06:00 Hct 30.9 % (35.5-45.6) L 05/02/17 06:00 MCV 95 fl (84-94) H 05/02/17 06:00 MCH 31 pg (28-32) 05/02/17 06:00 MCHC 33 % (32-34) 05/02/17 06:00 RDW 16.9 % (13.2-15.2) H 05/02/17 06:00 Plt Count 105 K/mm3 (140-440) L 05/02/17 06:00 Lymph % (Auto) 46.1 % (13.4-35.0) H 04/30/17 01:16 [place] % (Auto) 11.4 % (0.0-7.3) H 04/30/17 01:16 Eos % (Auto) 0.0 % (0.0-4.3) 04/30/17 01:16 Baso % (Auto) 0.1 % (0.0-1.8) 04/30/17 01:16 Lymph # 2.7 K/mm3 (1.2-5.4) 04/30/17 01:16 [place] # 0.7 K/mm3 (0.0-0.8) 04/30/17 01:16 Eos # 0.0 K/mm3 (0.0-0.4) 04/30/17 01:16 Baso # 0.0 K/mm3 (0.0-0.1) 04/30/17 01:16 Add Manual Diff Complete 05/02/17 06:00 Total Counted 100 05/02/17 06:00 Seg Neutrophils % 42.4 % (40.0-70.0) 04/30/17 01:16 Seg Neuts % (Manual) 72.0 % (40.0-70.0) H 05/02/17 06:00 Band Neutrophils % 22.0 % 05/02/17 06:00 Lymphocytes % (Manual) 6.0 % (13.4-35.0) L 05/02/17 06:00 Reactive Lymphs % (Man) 0 % 05/02/17 06:00 Monocytes % (Manual) 0 % (0.0-7.3) 05/02/17 06:00 Eosinophils % (Manual) 0 % (0.0-4.3) 05/02/17 06:00 Basophils % (Manual) 0 % (0.0-1.8) 05/02/17 06:00 Metamyelocytes % 0 % 05/02/17 06:00 Myelocytes % 0 % 05/02/17 06:00 Promyelocytes % 0 % 05/02/17 06:00 Blast Cells % 0 % 05/02/17 06:00 Nucleated RBC % Not Reportable 05/02/17 06:00 Seg Neutrophils # 2.5 K/mm3 (1.8-7.7) 04/30/17 01:16 Seg Neutrophils # Man 3.3 K/mm3 (1.8-7.7) 05/02/17 06:00 Band Neutrophils # 1.0 K/mm3 05/02/17 06:00 Lymphocytes # (Manual) 0.3 K/mm3 (1.2-5.4) L 05/02/17 06:00 Abs React Lymphs (Man) 0.0 K/mm3 05/02/17 06:00 Monocytes # (Manual) 0.0 K/mm3 (0.0-0.8) 05/02/17 06:00 Eosinophils # (Manual) 0.0 K/mm3 (0.0-0.4) 05/02/17 06:00 Basophils # (Manual) 0.0 K/mm3 (0.0-0.1) 05/02/17 06:00 Metamyelocytes # 0.0 K/mm3 05/02/17 06:00 Myelocytes # 0.0 K/mm3 05/02/17 06:00 Promyelocytes # 0.0 K/mm3 05/02/17 06:00 Blast Cells # 0.0 K/mm3 05/02/17 06:00 WBC Morphology Not Reportable 05/02/17 06:00 Hypersegmented Neuts Not Reportable 05/02/17 06:00 Hyposegmented Neuts Not Reportable 05/02/17 06:00 Hypogranular Neuts Not Reportable 05/02/17 06:00 Smudge Cells Not Reportable 05/02/17 06:00 Toxic Granulation Not Reportable 05/02/17 06:00 Toxic Vacuolation Not Reportable 05/02/17 06:00 Dohle Bodies Not Reportable 05/02/17 06:00 Pelger-Huet Anomaly Not Reportable 05/02/17 06:00 Hung Rods Not Reportable 05/02/17 06:00 Platelet Estimate Not Reportable 05/02/17 06:00 Clumped Platelets Not Reportable 05/02/17 06:00 Plt Clumps, EDTA Not Reportable 05/02/17 06:00 Large Platelets Not Reportable 05/02/17 06:00 Giant Platelets Not Reportable 05/02/17 06:00 Platelet Satelliting Not Reportable 05/02/17 06:00 Plt Morphology Comment Not Reportable 05/02/17 06:00 RBC Morphology Not Reportable 05/02/17 06:00 Dimorphic RBCs Not Reportable 05/02/17 06:00 Polychromasia Not Reportable 05/02/17 06:00 Hypochromasia Not Reportable 05/02/17 06:00 Poikilocytosis Not Reportable 05/02/17 06:00 Anisocytosis 1+ 05/02/17 06:00 Microcytosis Not Reportable 05/02/17 06:00 Macrocytosis Not Reportable 05/02/17 06:00 Spherocytes Not Reportable 05/02/17 06:00 Pappenheimer Bodies Not Reportable 05/02/17 06:00 Sickle Cells Not Reportable 05/02/17 06:00 Target Cells Not Reportable 05/02/17 06:00 Tear Drop Cells Not Reportable 05/02/17 06:00 Ovalocytes Few 05/02/17 06:00 Helmet Cells Not Reportable 05/02/17 06:00 Man-[place] Bodies Not Reportable 05/02/17 06:00 [place] Rings Not Reportable 05/02/17 06:00 [place] Cells Not Reportable 05/02/17 06:00 Bite Cells Not Reportable 05/02/17 06:00 Crenated Cell Not Reportable 05/02/17 06:00 Elliptocytes Not Reportable 05/02/17 06:00 Acanthocytes (Spur) Not Reportable 05/02/17 06:00 Rouleaux Not Reportable 05/02/17 06:00 Hemoglobin C Crystals Not Reportable 05/02/17 06:00 Schistocytes Not Reportable 05/02/17 06:00 Malaria parasites Not Reportable 05/02/17 06:00 Saud Bodies Not Reportable 05/02/17 06:00 Hem Pathologist Commnt No 05/02/17 06:00 APTT 27.8 Sec. (24.2-36.6) 04/30/17 01:16 D-Dimer 1356.09 ng/mlDDU (0-234) H 04/30/17 01:16 POC ABG pH 7.304 (7.35-7.45) L 05/02/17 16:10 POC ABG pCO2 27.9 (35-45) L 05/02/17 16:10 POC ABG pO2 89 (80-105) 05/02/17 16:10 POC ABG HCO3 13.8 05/02/17 16:10 POC ABG Total CO2 15 05/02/17 16:10 POC ABG O2 Sat 96 05/02/17 16:10 POC ABG Base Excess -13 05/02/17 16:10 FiO2 28 % 05/02/17 16:10 Sodium 151 mmol/L (137-145) H 05/02/17 06:00 Potassium 3.6 mmol/L (3.6-5.0) 05/02/17 06:00 Chloride 114.5 mmol/L (98-107) H 05/02/17 06:00 Carbon Dioxide 20 mmol/L (22-30) L 05/02/17 06:00 Anion Gap 20 mmol/L 05/02/17 06:00 BUN 92 mg/dL (9-20) H 05/02/17 06:00 Creatinine 2.6 mg/dL (0.8-1.5) H 05/02/17 06:00 Estimated GFR 29 ml/min 05/02/17 06:00 BUN/Creatinine Ratio 35 % 05/02/17 06:00 Glucose 87 mg/dL (75-100) 05/02/17 06:00 POC Glucose 227 (70-105) H 05/02/17 18:31 Hemoglobin A1c 7.5 % (4-6) H 04/30/17 20:24 Lactic Acid 1.80 mmol/L (0.7-2.0) 04/30/17 20:24 Calcium 7.9 mg/dL (8.4-10.2) L 05/02/17 06:00 Phosphorus 3.70 mg/dL (2.5-4.5) 05/02/17 06:00 Magnesium 2.30 mg/dL (1.7-2.3) 05/02/17 06:00 Total Bilirubin 0.40 mg/dL (0.1-1.2) 05/02/17 06:00 AST 30 units/L (5-40) 05/02/17 06:00 ALT 15 units/L (7-56) 05/02/17 06:00 Alkaline Phosphatase 53 units/L (35-129) 05/02/17 06:00 Total Creatine Kinase 693 units/L (55-170) H 04/30/17 12:11 CK-MB (CK-2) 2.5 ng/mL (0.0-4.0) 04/30/17 12:11 CK-MB (CK-2) Rel Index 0.3 (0-4) 04/30/17 12:11 Troponin T 0.299 ng/mL (0.00-0.029) H* 04/30/17 12:11 C-Reactive Protein 19.00 mg/dL (0.00-1.30) H 05/01/17 11:04 NT-Pro-B Natriuret Pep 55734 pg/mL (0-900) H 04/30/17 01:16 Total Protein 5.9 g/dL (6.3-8.2) L D 05/02/17 06:00 Albumin 2.7 g/dL (3.9-5) L 05/02/17 06:00 Albumin/Globulin Ratio 0.8 % 05/02/17 06:00 Triglycerides 260 mg/dL (2-149) H 04/30/17 01:16 Cholesterol 119 mg/dL (50-199) 04/30/17 01:16 LDL Cholesterol Direct 41 mg/dL (50-130) L 04/30/17 01:16 HDL Cholesterol 26 mg/dL (40-59) L 04/30/17 01:16 Cholesterol/HDL Ratio 4.57 % 04/30/17 01:16 Urine Color Yellow (Yellow) 04/30/17 18:17 Urine Turbidity Slightly-cloudy (Clear) 04/30/17 18:17 Urine pH 5.0 (5.0-7.0) 04/30/17 18:17 Ur Specific [place] 1.019 (1.003-1.030) 04/30/17 18:17 Urine Protein 100 mg/dl mg/dL (Negative) 04/30/17 18:17 Urine Glucose (UA) Neg mg/dL (Negative) 04/30/17 18:17 Urine Ketones Neg mg/dL (Negative) 04/30/17 18:17 Urine Blood Neg (Negative) 04/30/17 18:17 Urine Nitrite Neg (Negative) 04/30/17 18:17 Urine Bilirubin Neg (Negative) 04/30/17 18:17 Urine Urobilinogen 2.0 mg/dL (<2.0) 04/30/17 18:17 Ur Leukocyte Esterase Lg (Negative) 04/30/17 18:17 Urine WBC (Auto) 40.0 /HPF (0.0-6.0) H 04/30/17 18:17 Urine RBC (Auto) 10.0 /HPF (0.0-6.0) 04/30/17 18:17 U Epithel Cells (Auto) < 1.0 /HPF (0-13.0) 04/30/17 18:17 Hyaline Casts 1 /LPF 04/30/17 18:17 Granular Casts 4 /LPF 04/30/17 18:17 Urine Mucus Few /HPF 04/30/17 18:17 Urine Creatinine 66.4 mg/dL (0.1-20.0) H 05/02/17 03:50 Urine Sodium 18 mmol/L 05/02/17 03:50 Urine Total Protein 292 mg/dL (5-11.8) H 05/02/17 03:50 Random Vancomycin 8.5 ug/mL (0-40.0) 05/01/17 04:29 Hep Bs Antigen Non-reactive (Negative) 05/02/17 06:00 Hepatitis C Antibody Non-reactive (NonReactive) 05/02/17 06:00 Blood Type O POSITIVE 04/30/17 01:18 Antibody Screen Negative 04/30/17 01:18
--- NOTE | 2017-05-02 19:08 | XRay Report ---
FINAL REPORT PROCEDURE: XR ABDOMEN 1V AP TECHNIQUE: AP supine portable radiograph of the abdomen was obtained at 05/02/2017 22:57 (GMT) . HISTORY: Nasogastric tube placement. COMPARISON: No prior studies are available for comparison. FINDINGS: Bowel gas pattern: Moderately air-filled distended colon. Stool in the colon. Masses or calcifications: Mild atherosclerosis. Bony structures: Osteopenia. Degenerative changes of the spine. Other: The enteric tube tip is just at the level of the gastroesophageal junction. Side port is felt to be above the gastroesophageal junction in the distal esophagus. Left retrocardiac consolidation with air bronchograms and possible bronchiectasis. IMPRESSION: Enteric tube tip likely just at the gastroesophageal junction, but side port likely in the distal esophagus. Recommend advancement of the enteric tube 5-6 cm. Moderately air-filled distended colon. Stool in the colon. Consider ileus and/or constipation. Consider radiographic followup if there is concern for obstruction. Left retrocardiac consolidation with air bronchograms and possible bronchiectasis, consider correlation with chest radiograph.
[2017-05-02] MEDS: LEVEMIR SUB-Q SCH (22:02)
[2017-05-03] MEDS: NOVOLOG SUB-Q SCH ×3 (00:21→13:46)
[2017-05-03] MEDS: DUONEB *Not for PRN Use IH SCH ×3 (02:31→13:55)
--- NOTE | 2017-05-03 02:32 | XRay Report ---
FINAL REPORT EXAM: XR ABDOMEN 1V AP HISTORY: Feeding tube placement TECHNIQUE: An AP view of the chest and abdomen were obtained. Comparison is made to the study of 05/02/2017. FINDINGS: The tip of the Dobhoff tube is in the body of the stomach. The bowel gas pattern is unremarkable. The heart is mildly enlarged. The lungs appear congested. The bones and soft tissues do not show any acute changes otherwise. IMPRESSION: Tip of the Dobhoff tube in the body of the stomach.
--- NOTE | 2017-05-03 02:35 | XRay Report ---
FINAL REPORT EXAM: XR CHEST 1V AP HISTORY: Possible Aspiration TECHNIQUE: A portable semi-erect view the chest was obtained and compared to the study of 05/01/2017. FINDINGS: There are stable patchy infiltrates in both lung bases. Small effusions cannot be excluded. The heart size is normal. The lungs are not overtly congested. The tip of the Dobhoff tube is in the body of the stomach. There is a central line in place with the tip in the superior vena cava. The bones and soft tissues otherwise do not show any acute changes. IMPRESSION: Stable patchy infiltrates in both lung bases. Small effusions cannot be excluded.
[2017-05-03] MEDS: ASCORBIC ACID 1,500 MG in NACL 0.9% 50 ML IV SCH ×2 (03:07→10:06)
[2017-05-03] MEDS: ZOSYN/NS 2.25 GM/50ML 2.25 GM/50 ML BAG IV SCH (05:06)
[2017-05-03] MEDS: VITAMIN B-1 200 MG in NACL 0.9% 50 ML IV SCH (05:06)
[2017-05-03] MEDS: NACL 0.45% 1000 ML 1,000 ML IV SCH (05:07)
[2017-05-03] MEDS: CORDARONE 900 MG in D5W 482 ML IV SCH (05:07)
[2017-05-03] MEDS ORDERED: MUCOMYST INHALATION INHALATION SCH (08:30)
--- NOTE | 2017-05-03 08:37 | Progress Note ---
Assessment and Plan Assessment: Paroxysmal atrial fibrillation-->currently sinus rhythm Wide complex tachycardia noted on 05/02 was rapid afib with underlying RBBB Elevated troponin Sepsis due to PNA Hypertension Hyperlipidemia Hx. of CVA Plan: Initiate PO amiodarone 200mg daily and d/c amiodarone gtt. Continue close monitoring of heart rate and blood pressure. Given elevated troponin, consider stress MPI when clinically stable. The patient has been seen in conjunction with Dr. Neely who agrees with the assessment and plan of care. Subjective Date of service: 05/03/17 Principal diagnosis: Atrial Fib with RVR; Acute Hypoxemic Resp Failure: Sepsis Syndrome Interval history: The patient is resting in bed. Lethargic but arousable. Appears short of breath. Sinus rhythm on the monitor. Objective Last Vital Signs Temp 98.1 F 05/03/17 08:00 Pulse 103 H 05/03/17 08:45 Resp 22 05/03/17 08:45 BP 133/81 05/03/17 08:45 Pulse Ox 100 05/03/17 08:45 - Physical Examination General: No Apparent Distress HEENT: Positive: Normocephaly, Mucus Membranes Moist Neck: Positive: neck supple, trachea midline Cardiac: Positive: Reg Rate and Rhythm, S1/S2 Lungs: Positive: Rhonchi Neuro: Positive: Grossly Intact Abdomen: Positive: Soft, Active Bowel Sounds. Negative: Tender Skin: Positive: Clear. Negative: Rash Extremities: Present: normal. Absent: edema - Imaging and Cardiology Echo: report reviewed (04/2017: EF 50-55%) - Telemetry EKG Rhythm: Sinus Rhythm - Allied health notes Allied health notes reviewed: nursing
[2017-05-03] MEDS: LOVENOX SUB-Q SCH (09:30)
[2017-05-03] MEDS: FLOMAX PO SCH (09:31)
[2017-05-03] MEDS: PROTONIX IV SCH (09:31)
[2017-05-03] MEDS ORDERED: CORDARONE PO SCH (10:00)
--- NOTE | 2017-05-03 10:02 | Progress Note ---
Assessment and Plan Assessment and plan: 77-year-old man with a history of diabetes, hyperlipidemia was sent from the group home for hypotension and fever. The patient is unable to give a history , is lethargic but arousable Rapid atrial fibrillation Amiodarone drip case discussed with cardiology Acute respiratory failure with hypoxia Has now been weaned to oxygen by nasal cannula, improving Septic shock Continue pressor supports Aspiration PNA, likely due to gram positive continue abx, case dw ID Acute renal failure/ATN nephrology consult continue IVF, obtain UA, UC and renal US Hypernatremia Free water by NG tube Abnormal d-dimer Dopplers are negative for DVT, likely elevated due to septic shock, obtain VQ scan when more stable Abnormal cardiac enzymes -demand ischaemia, due to Type 2 [place] -cardiology input appreciated, for MPI when clinically improved Metabolic acidosis likely due to sepsis and dehydration continue rx as above DM continue SSI, add levemir The high probability of a clinically significant, sudden or life threatening deterioration of the [cv, pumonary, renal] system(s) required my full and direct attention, intervention and personal management. The aggregate critical care time was [44] minutes. This time is in addition to time spent performing reported procedures but includes the following: [] Data Review and interpretation [] Patient assessment and monitoring of vital signs [] Documentation [] Medication orders and management History Interval history: Is now off BiPAP, oriented to person and place, states that shortness of breath is improved no fever, no vomiting, no seizures, His nurse reports that he's been tachycardic and has had low blood pressure Hospitalist Physical - Physical exam Narrative exam: General.: Appears well, no distress, nontoxic HEENT: Moist mucous membranes, extraocular muscles intact, no lymphadenopathy Neck: supple Cardiac: S1-S2 heard Lungs: Diminished breath sounds, no wheezing Abdomen: soft , nontender, nondistended, bowel sounds positive Extremities: no edema clubbing or cyanosis Skin: no rash or lesions Neurologic: Oriented to person and place Psych: Calm and cooperative - Constitutional Vitals: Temp Pulse Resp BP Pulse Ox 98.1 F 103 H 22 133/81 100 05/03/17 08:00 05/03/17 08:45 05/03/17 08:45 05/03/17 08:45 05/03/17 08:45 General appearance: Present: no acute distress Results - Labs CBC & Chem 7: 05/02/17 06:00 05/03/17 09:44 Labs: Laboratory Last Values WBC 4.6 K/mm3 (4.5-11.0) 05/02/17 06:00 RBC 3.27 M/mm3 (3.65-5.03) L 05/02/17 06:00 Hgb 10.1 gm/dl (11.8-15.2) L 05/02/17 06:00 Hct 30.9 % (35.5-45.6) L 05/02/17 06:00 MCV 95 fl (84-94) H 05/02/17 06:00 MCH 31 pg (28-32) 05/02/17 06:00 MCHC 33 % (32-34) 05/02/17 06:00 RDW 16.9 % (13.2-15.2) H 05/02/17 06:00 Plt Count 105 K/mm3 (140-440) L 05/02/17 06:00 Lymph % (Auto) 46.1 % (13.4-35.0) H 04/30/17 01:16 [place] % (Auto) 11.4 % (0.0-7.3) H 04/30/17 01:16 Eos % (Auto) 0.0 % (0.0-4.3) 04/30/17 01:16 Baso % (Auto) 0.1 % (0.0-1.8) 04/30/17 01:16 Lymph # 2.7 K/mm3 (1.2-5.4) 04/30/17 01:16 [place] # 0.7 K/mm3 (0.0-0.8) 04/30/17 01:16 Eos # 0.0 K/mm3 (0.0-0.4) 04/30/17 01:16 Baso # 0.0 K/mm3 (0.0-0.1) 04/30/17 01:16 Add Manual Diff Complete 05/02/17 06:00 Total Counted 100 05/02/17 06:00 Seg Neutrophils % 42.4 % (40.0-70.0) 04/30/17 01:16 Seg Neuts % (Manual) 72.0 % (40.0-70.0) H 05/02/17 06:00 Band Neutrophils % 22.0 % 05/02/17 06:00 Lymphocytes % (Manual) 6.0 % (13.4-35.0) L 05/02/17 06:00 Reactive Lymphs % (Man) 0 % 05/02/17 06:00 Monocytes % (Manual) 0 % (0.0-7.3) 05/02/17 06:00 Eosinophils % (Manual) 0 % (0.0-4.3) 05/02/17 06:00 Basophils % (Manual) 0 % (0.0-1.8) 05/02/17 06:00 Metamyelocytes % 0 % 05/02/17 06:00 Myelocytes % 0 % 05/02/17 06:00 Promyelocytes % 0 % 05/02/17 06:00 Blast Cells % 0 % 05/02/17 06:00 Nucleated RBC % Not Reportable 05/02/17 06:00 Seg Neutrophils # 2.5 K/mm3 (1.8-7.7) 04/30/17 01:16 Seg Neutrophils # Man 3.3 K/mm3 (1.8-7.7) 05/02/17 06:00 Band Neutrophils # 1.0 K/mm3 05/02/17 06:00 Lymphocytes # (Manual) 0.3 K/mm3 (1.2-5.4) L 05/02/17 06:00 Abs React Lymphs (Man) 0.0 K/mm3 05/02/17 06:00 Monocytes # (Manual) 0.0 K/mm3 (0.0-0.8) 05/02/17 06:00 Eosinophils # (Manual) 0.0 K/mm3 (0.0-0.4) 05/02/17 06:00 Basophils # (Manual) 0.0 K/mm3 (0.0-0.1) 05/02/17 06:00 Metamyelocytes # 0.0 K/mm3 05/02/17 06:00 Myelocytes # 0.0 K/mm3 05/02/17 06:00 Promyelocytes # 0.0 K/mm3 05/02/17 06:00 Blast Cells # 0.0 K/mm3 05/02/17 06:00 WBC Morphology Not Reportable 05/02/17 06:00 Hypersegmented Neuts Not Reportable 05/02/17 06:00 Hyposegmented Neuts Not Reportable 05/02/17 06:00 Hypogranular Neuts Not Reportable 05/02/17 06:00 Smudge Cells Not Reportable 05/02/17 06:00 Toxic Granulation Not Reportable 05/02/17 06:00 Toxic Vacuolation Not Reportable 05/02/17 06:00 Dohle Bodies Not Reportable 05/02/17 06:00 Pelger-Huet Anomaly Not Reportable 05/02/17 06:00 Hung Rods Not Reportable 05/02/17 06:00 Platelet Estimate Not Reportable 05/02/17 06:00 Clumped Platelets Not Reportable 05/02/17 06:00 Plt Clumps, EDTA Not Reportable 05/02/17 06:00 Large Platelets Not Reportable 05/02/17 06:00 Giant Platelets Not Reportable 05/02/17 06:00 Platelet Satelliting Not Reportable 05/02/17 06:00 Plt Morphology Comment Not Reportable 05/02/17 06:00 RBC Morphology Not Reportable 05/02/17 06:00 Dimorphic RBCs Not Reportable 05/02/17 06:00 Polychromasia Not Reportable 05/02/17 06:00 Hypochromasia Not Reportable 05/02/17 06:00 Poikilocytosis Not Reportable 05/02/17 06:00 Anisocytosis 1+ 05/02/17 06:00 Microcytosis Not Reportable 05/02/17 06:00 Macrocytosis Not Reportable 05/02/17 06:00 Spherocytes Not Reportable 05/02/17 06:00 Pappenheimer Bodies Not Reportable 05/02/17 06:00 Sickle Cells Not Reportable 05/02/17 06:00 Target Cells Not Reportable 05/02/17 06:00 Tear Drop Cells Not Reportable 05/02/17 06:00 Ovalocytes Few 05/02/17 06:00 Helmet Cells Not Reportable 05/02/17 06:00 Man-[place] Bodies Not Reportable 05/02/17 06:00 [employer] Rings Not Reportable 05/02/17 06:00 [place] Cells Not Reportable 05/02/17 06:00 Bite Cells Not Reportable 05/02/17 06:00 Crenated Cell Not Reportable 05/02/17 06:00 Elliptocytes Not Reportable 05/02/17 06:00 Acanthocytes (Spur) Not Reportable 05/02/17 06:00 Rouleaux Not Reportable 05/02/17 06:00 Hemoglobin C Crystals Not Reportable 05/02/17 06:00 Schistocytes Not Reportable 05/02/17 06:00 Malaria parasites Not Reportable 05/02/17 06:00 Saud Bodies Not Reportable 05/02/17 06:00 Hem Pathologist Commnt No 05/02/17 06:00 APTT 27.8 Sec. (24.2-36.6) 04/30/17 01:16 D-Dimer 1356.09 ng/mlDDU (0-234) H 04/30/17 01:16 POC ABG pH 7.304 (7.35-7.45) L 05/02/17 16:10 POC ABG pCO2 27.9 (35-45) L 05/02/17 16:10 POC ABG pO2 89 (80-105) 05/02/17 16:10 POC ABG HCO3 13.8 05/02/17 16:10 POC ABG Total CO2 15 05/02/17 16:10 POC ABG O2 Sat 96 05/02/17 16:10 POC ABG Base Excess -13 05/02/17 16:10 FiO2 28 % 05/02/17 16:10 Sodium 151 mmol/L (137-145) H 05/02/17 06:00 Potassium 3.6 mmol/L (3.6-5.0) 05/02/17 06:00 Chloride 114.5 mmol/L (98-107) H 05/02/17 06:00 Carbon Dioxide 20 mmol/L (22-30) L 05/02/17 06:00 Anion Gap 20 mmol/L 05/02/17 06:00 BUN 92 mg/dL (9-20) H 05/02/17 06:00 Creatinine 2.6 mg/dL (0.8-1.5) H 05/02/17 06:00 Estimated GFR 29 ml/min 05/02/17 06:00 BUN/Creatinine Ratio 35 % 05/02/17 06:00 Glucose 87 mg/dL (75-100) 05/02/17 06:00 POC Glucose 205 (70-105) H 05/03/17 05:25 Hemoglobin A1c 7.5 % (4-6) H 04/30/17 20:24 Lactic Acid 1.80 mmol/L (0.7-2.0) 04/30/17 20:24 Calcium 7.9 mg/dL (8.4-10.2) L 05/02/17 06:00 Phosphorus 3.70 mg/dL (2.5-4.5) 05/02/17 06:00 Magnesium 2.30 mg/dL (1.7-2.3) 05/02/17 06:00 Total Bilirubin 0.40 mg/dL (0.1-1.2) 05/02/17 06:00 AST 30 units/L (5-40) 05/02/17 06:00 ALT 15 units/L (7-56) 05/02/17 06:00 Alkaline Phosphatase 53 units/L (35-129) 05/02/17 06:00 Total Creatine Kinase 693 units/L (55-170) H 04/30/17 12:11 CK-MB (CK-2) 2.5 ng/mL (0.0-4.0) 04/30/17 12:11 CK-MB (CK-2) Rel Index 0.3 (0-4) 04/30/17 12:11 Troponin T 0.299 ng/mL (0.00-0.029) H* 04/30/17 12:11 C-Reactive Protein 19.00 mg/dL (0.00-1.30) H 05/01/17 11:04 NT-Pro-B Natriuret Pep 03236 pg/mL (0-900) H 04/30/17 01:16 Total Protein 5.9 g/dL (6.3-8.2) L D 05/02/17 06:00 Albumin 2.7 g/dL (3.9-5) L 05/02/17 06:00 Albumin/Globulin Ratio 0.8 % 05/02/17 06:00 Triglycerides 260 mg/dL (2-149) H 04/30/17 01:16 Cholesterol 119 mg/dL (50-199) 04/30/17 01:16 LDL Cholesterol Direct 41 mg/dL (50-130) L 04/30/17 01:16 HDL Cholesterol 26 mg/dL (40-59) L 04/30/17 01:16 Cholesterol/HDL Ratio 4.57 % 04/30/17 01:16 Urine Color Yellow (Yellow) 04/30/17 18:17 Urine Turbidity Slightly-cloudy (Clear) 04/30/17 18:17 Urine pH 5.0 (5.0-7.0) 04/30/17 18:17 Ur Specific [place] 1.019 (1.003-1.030) 04/30/17 18:17 Urine Protein 100 mg/dl mg/dL (Negative) 04/30/17 18:17 Urine Glucose (UA) Neg mg/dL (Negative) 04/30/17 18:17 Urine Ketones Neg mg/dL (Negative) 04/30/17 18:17 Urine Blood Neg (Negative) 04/30/17 18:17 Urine Nitrite Neg (Negative) 04/30/17 18:17 Urine Bilirubin Neg (Negative) 04/30/17 18:17 Urine Urobilinogen 2.0 mg/dL (<2.0) 04/30/17 18:17 Ur Leukocyte Esterase Lg (Negative) 04/30/17 18:17 Urine WBC (Auto) 40.0 /HPF (0.0-6.0) H 04/30/17 18:17 Urine RBC (Auto) 10.0 /HPF (0.0-6.0) 04/30/17 18:17 U Epithel Cells (Auto) < 1.0 /HPF (0-13.0) 04/30/17 18:17 Hyaline Casts 1 /LPF 04/30/17 18:17 Granular Casts 4 /LPF 04/30/17 18:17 Urine Mucus Few /HPF 04/30/17 18:17 Urine Creatinine 66.4 mg/dL (0.1-20.0) H 05/02/17 03:50 Urine Sodium 18 mmol/L 05/02/17 03:50 Urine Total Protein 292 mg/dL (5-11.8) H 05/02/17 03:50 Random Vancomycin 8.5 ug/mL (0-40.0) 05/01/17 04:29 Hep Bs Antigen Non-reactive (Negative) 05/02/17 06:00 Hepatitis C Antibody Non-reactive (NonReactive) 05/02/17 06:00 Blood Type O POSITIVE 04/30/17 01:18 Antibody Screen Negative 04/30/17 01:18
[2017-05-03 10:17] LABS: Calcium 7.7 mg/dL (8.4-10.2)
--- NOTE | 2017-05-03 10:22 | Progress Note ---
Assessment and Plan Assessment: 1) Sepsis with initial septic shock: resolved. Etiology most likely UTI +/- pneumonia. 2) Complicated UTI with a SP cath: SP cath was exchanged in the ED. Urine cx 10 -100K mixed bacteria 3) Presumed bilateral pneumonia: influenza negative 4) AMIRA: better 5) Acute resp failure - better 6) Pancytopenia ? from sepsis - stable Plan: -continue zosyn day 4 of 7 to cover UTI/pneumonia -please remove IJ TLC if not longer needed Thank you Dr Gayle for your consultation, will follow up with you. Ying Devi MD Infectious Diseases Specialist [facility] [phone] O [phone] Subjective Date of service: 05/03/17 Principal diagnosis: Atrial Fib with RVR; Acute Hypoxemic Resp Failure: Sepsis Syndrome Interval history: Feels better, talking, now on NC O2 4 L. No fever. Microbiology: Blood cultures: 04/30 neg Urine cultures: 04/30 10-100K mixed Current Antimicrobials: Zosyn 04/30 Previous Antimicrobials: Vancomycin 04/30 Objective - Exam Narrative Exam: General appearance:alert in NAD on NC O2 pleasant Eyes: anicteric sclerae, moist conjunctivae; no lid-lag; PERRLA HENT: Atraumatic; oropharynx limited Neck: Trachea midline; supple, no thyromegaly or lymphadenopathy Lungs: scattered rhonchi CV: RRR Abdomen: Soft, non-tender; +SP cath clean Extremities: mild peripheral edema, no extremity lymphadenopathy Skin: Normal temperature, turgor and texture; no rash, ulcers or subcutaneous nodules Psych: Appropriate affect, alert and oriented to person, place and time. Neuro: alert and oriented x 3. Moving all extermities Lines: left IJ - Constitutional Vitals: Vital Signs Temp Pulse Resp BP Pulse Ox 98.1 F 103 H 22 133/81 100 05/03/17 08:00 05/03/17 08:45 05/03/17 08:45 05/03/17 08:45 05/03/17 08:45 Temperature -Last 24 Hours Temperature 98.1 F Temperature 97.7 F Temperature 97.0 F Temperature 97.5 F Temperature 97.3 F - Labs CBC & Chem 7: 05/02/17 06:00 05/03/17 09:44 Labs: Abnormal lab results 05/01/17 05/02/17 05/02/17 Range/Units 17:54 06:00 12:20 Seg Neuts % (Manual) 72.0 H (40.0-70.0) % Lymphocytes % (Manual) 6.0 L (13.4-35.0) % Lymphocytes # (Manual) 0.3 L (1.2-5.4) K/mm3 POC ABG pH (7.35-7.45) POC ABG pCO2 (35-45) Sodium (137-145) mmol/L Chloride (98-107) mmol/L Carbon Dioxide (22-30) mmol/L BUN (9-20) mg/dL Creatinine (0.8-1.5) mg/dL Glucose (75-100) mg/dL POC Glucose 235 H 140 H (70-105) Calcium (8.4-10.2) mg/dL 05/02/17 05/02/17 05/02/17 Range/Units 16:10 18:31 23:50 Seg Neuts % (Manual) (40.0-70.0) % Lymphocytes % (Manual) (13.4-35.0) % Lymphocytes # (Manual) (1.2-5.4) K/mm3 POC ABG pH 7.304 L (7.35-7.45) POC ABG pCO2 27.9 L (35-45) Sodium (137-145) mmol/L Chloride (98-107) mmol/L Carbon Dioxide (22-30) mmol/L BUN (9-20) mg/dL Creatinine (0.8-1.5) mg/dL Glucose (75-100) mg/dL POC Glucose 227 H 183 H (70-105) Calcium (8.4-10.2) mg/dL 05/03/17 05/03/17 Range/Units 05:25 09:44 Seg Neuts % (Manual) (40.0-70.0) % Lymphocytes % (Manual) (13.4-35.0) % Lymphocytes # (Manual) (1.2-5.4) K/mm3 POC ABG pH (7.35-7.45) POC ABG pCO2 (35-45) Sodium 152 H (137-145) mmol/L Chloride 113.6 H (98-107) mmol/L Carbon Dioxide 17 L (22-30) mmol/L BUN 90 H (9-20) mg/dL Creatinine 2.6 H (0.8-1.5) mg/dL Glucose 192 H (75-100) mg/dL POC Glucose 205 H (70-105) Calcium 7.7 L (8.4-10.2) mg/dL
--- NOTE | 2017-05-03 12:12 | Discharge Summary ---
Providers - Providers Date of Admission: 04/30/17 06:09 Attending physician: KAYDEN BRAUN MD 04/30/17 06:08 Consult to Physician [CONS] Routine Consulting Provider: YANCY BLUE Reason For Exam: cc Place consult to:: Dr. Blue Notified:: Answering Service Phone number called:: [phone] Was contact made?: No Comment:: Answering Service notified 04/30/17 15:26 Consult to Dietitian/Nutrition [CONS] Routine Physician Instructions: Reason For Exam: Reason for Consult: Write/Manage Tube Feeding 04/30/17 15:29 Consult to Physician [CONS] Routine Consulting Provider: ISRAEL MODI Reason For Exam: septic shock Place consult to:: ID Notified:: [id number] Was contact made?: Yes If yes, spoke with:: DR FUENTES Time called:: 15:50 04/30/17 15:37 Consult to Physician [CONS] Routine Consulting Provider: ANDRE CRUZ Reason For Exam: elevated troponin Place consult to:: CARDIO Notified:: Y If yes, spoke with:: DR Tyler REYES Time called:: 16:00 04/30/17 15:39 Consult to Physician [CONS] Routine Consulting Provider: FAUSTO TRACEY Reason For Exam: jez Place consult to:: NEPHROLOGY Notified:: Y If yes, spoke with:: DR NOLAN Time called:: 16:00 Primary care physician: WESLEY BAH Hospitalization Condition: Stable Hospital course: 77-year-old man with a history of diabetes, hyperlipidemia was sent from the correction for hypotension and fever. He was found to have acute respiratory failure with hypoxia. He was treated with BiPAP and high flow oxygen. And he also received IV antibiotics for aspiration pneumonia. He did have low blood pressure for which she received pressors. He also suffered renal injury due to ATN. Patient did have a free water deficit that was replaced by NG tube. He also had rapid atrial fibrillation and type II [place]. His heart rate was controlled amiodarone drip. He clinically improved. He has multiple medical problems and will need a long course of treatment before he is improved. Therefore he was discharged to a long-term acute hospital for continued treatments. Discharge diagnoses Rapid atrial fibrillation Acute respiratory failure with hypoxia Septic shock Aspiration PNA, likely due to gram positive Acute renal failure/ATN Hypernatremia Abnormal d-dimer Type II [place]/demand ischemia Metabolic acidosis DM, type 2, uncontrolled Disposition: [id number] MEDICARE CERT [facility] Time spent for discharge: 33 minutes Core Measure Documentation - Palliative Care Palliative Care/ Comfort Measures: Not Applicable - Core Measures Any of the following diagnoses?: none Exam - Physical Exam Narrative exam: General.: Appears well, no distress, nontoxic HEENT: Moist mucous membranes, extraocular muscles intact, no lymphadenopathy Neck: supple Cardiac: S1-S2 heard Lungs: Diminished breath sounds, no wheezing Abdomen: soft , nontender, nondistended, bowel sounds positive Extremities: no edema clubbing or cyanosis Skin: no rash or lesions Neurologic: Oriented to person and place Psych: Calm and cooperative - Constitutional Vitals: Temp Pulse Resp BP Pulse Ox 98.1 F 103 H 22 133/81 100 05/03/17 08:00 05/03/17 08:45 05/03/17 08:45 05/03/17 08:45 05/03/17 08:45 Plan Follow up with: PRIMARY CAREMD [Referring] - 3-5 Days
[2017-05-03 13:08] VITALS: BP 159/77
[2017-05-03] MEDS ORDERED: CATHFLO IV ONE (13:30)
[2017-05-03] MEDS ORDERED: WATER FOR INJ (PF) 10 ML ONE (13:34)
[2017-05-03] MEDS ORDERED: PYRIDIUM PO SCH (14:00)
== END 2017-05-03 15:00 | DRG 871 ==
LOC: ED 00:28 → CC1 06:09
PROVIDERS: ADMIT Internal Medicine; ATTEND Internal Medicine
PROC: 4A033R1 Measurement of Arterial Saturation, Peripheral, Percutaneous Approach (ICD-10-PCS; principal; 2017-04-30)
PROC: 5A09457 Assistance with Respiratory Ventilation, 24-96 Consecutive Hours, Continuous Positive Airway Pressure (ICD-10-PCS; 2017-04-30)
PROC: 02HV33Z Insertion of Infusion Device into Superior Vena Cava, Percutaneous Approach (ICD-10-PCS; 2017-04-30)
DX: A41.9 Sepsis, unspecified organism (principal); J96.01 Acute respiratory failure with hypoxia; N17.0 Acute kidney failure with tubular necrosis; R65.21 Severe sepsis with septic shock; I21.4 Non-ST elevation (NSTEMI) myocardial infarction; J18.9 Pneumonia, unspecified organism; E87.0 Hyperosmolality and hypernatremia; D61.818 Other pancytopenia; E78.5 Hyperlipidemia, unspecified; Z79.82 Long term (current) use of aspirin; Z79.899 Other long term (current) drug therapy; I11.0 Hypertensive heart disease with heart failure; I50.9 Heart failure, unspecified; Z86.73 Personal history of transient ischemic attack (TIA), and cerebral infarction without residual deficits; N31.9 Neuromuscular dysfunction of bladder, unspecified; K21.9 Gastro-esophageal reflux disease without esophagitis; M19.90 Unspecified osteoarthritis, unspecified site; F32.9 Major depressive disorder, single episode, unspecified; I48.0 Paroxysmal atrial fibrillation; R62.7 Adult failure to thrive; I45.10 Unspecified right bundle-branch block
CPT/HCPCS: 31720; 36415; 36600; 71045; 74018; 76770; 80048; 80053; 80061; 80202; 81001; 82140; 82550; 82553; 82570; 82803; 82962; 83036; 83735; 83880; 84100; 84156; 84300; 84484; 85007; 85025; 85379; 85730; 86140; 86706; 86803; 86850; 86900; 86901; 87040; 87086; 87400; 93005; 93010; 93306; 93970; 94640; 94660; 94760; 96365; 96366; 96372; 96375; 99292; C9113; J0282; J1650; J1815; J1818; J2543; J2930; J3370; J3411; J3480; J7030; J7040; J7060; J7120